=== PATIENT | male | born 1965 | race Caucasian/White ===

== ENCOUNTER 2017-10-08 12:45 | Inpatient (IN) | payer OTHER ==
[2017-10-08] MEDS ORDERED: SODIUM CHLORIDE 0.9% 1,000 ML IV STA (14:07)
[2017-10-08] MEDS ORDERED: ONDANSETRON 4 MG/2 ML VIAL IVP STA (14:07)
[2017-10-08] MEDS ORDERED: FAMOTIDINE 20 MG/2 ML VIAL IV STA (14:08)
--- NOTE | 2017-10-08 14:52 | ED ---
General Adult HPI - General Source: patient, RN notes reviewed Mode of arrival: ambulatory <Ishmael Casiano - Last Filed: 10/08/17 16:07> <Gail Sagastume - Last Filed: 10/08/17 16:50> - General Chief complaint: Nausea/Vomiting/Diarrhea Stated complaint: Throwing up x2wks Time Seen by Provider: 10/08/17 13:53 - History of Present Illness Initial comments: Patient's a 52-year-old male presenting to the emergency room today with a chief complaint of cough congestion over the last 2 weeks. Patient admits that he follow-up family doctor was prescribed azithromycin. States he was also then placed on amoxicillin and steroids. States still having some cough congestion. Also admits to symptoms of nausea and vomiting. Patient states that at times when he is trying to drink water has difficult time keeping it down. He does admit that he was able eat lunch today. Patient denies any specific abdominal pain. Does admit that he's had these symptoms over the past 2 weeks as well with this cough congestion. He denies any other complaints. Patient denies any recent fever, chills, shortness of breath, chest pain, back pain, dysuria or hematuria, constipation or diarrhea, headaches or visual changes, or any other complaints. (Ishmael Casiano) - Related Data Home Medications Medication Instructions Recorded Confirmed Amoxicillin 1,000 mg PO Q12H 10/08/17 10/08/17 Allergies Allergy/AdvReac Type Severity Reaction Status Date / Time No Known Allergies Allergy Verified 10/08/17 16:29 Review of Systems ROS Other: All systems not noted in ROS Statement are negative. <Ishmael Casiano - Last Filed: 10/08/17 16:07> ROS Other: All systems not noted in ROS Statement are negative. <Gail Sagastume - Last Filed: 10/08/17 16:50> ROS Statement: Those systems with pertinent positive or pertinent negative responses have been documented in the HPI. Past Medical History Past Medical History: No Reported History History of Any Multi-Drug Resistant Organisms: None Reported Past Surgical History: No Surgical Hx Reported Smoking Status: Former smoker Past Alcohol Use History: Occasional Past Drug Use History: Marijuana <Ishmael Casiano - Last Filed: 10/08/17 16:07> General Exam <Ishmael Casiano - Last Filed: 10/08/17 16:07> <Gail Sagastume P - Last Filed: 10/08/17 16:50> - General Exam Comments Initial Comments: General: The patient is awake and alert, in no distress, and does not appear acutely ill. Eye: Pupils are equal, round and reactive to light, extra-ocular movements are intact. No nystagmus. There is normal conjunctiva bilaterally. No signs of icterus. Ears, nose, mouth and throat: There are moist mucous membranes and no oral lesions. Neck: The neck is supple, there is no tenderness or JVD. Cardiovascular: There is a regular rate and rhythm. No murmur, rub or gallop is appreciated. Respiratory: Lungs are clear to auscultation, respirations are non-labored, breath sounds are equal. No wheezes, stridor, rales, or rhonchi. Gastrointestinal: Soft, non-distended, non-tender abdomen without masses or organomegaly noted. There is no rebound or guarding present. No CVA tenderness. Musculoskeletal: Normal ROM, no tenderness. Strength 5/5. Sensation intact. Pulses equal bilaterally 2+. Neurological: A&O x 3. CN II-XII intact, There are no obvious motor or sensory deficits. Coordination appears grossly intact. Speech is normal. Skin: Skin is warm and dry and no rashes or lesions are noted. Psychiatric: Cooperative, appropriate mood & affect, normal judgment. (Ishmael Casiano) Vital Signs 10/08/17 10/08/17 13:47 16:04 Temperature 99.3 F 99.0 F Pulse Rate 107 H 91 Respiratory 18 18 Rate Blood Pressure 102/68 114/64 O2 Sat by Pulse 94 L 93 L Oximetry Medical Decision Making - Lab Data Result diagrams: 10/08/17 15:00 10/08/17 15:00 <Ishmael Casiano - Last Filed: 10/08/17 16:07> - Lab Data Result diagrams: 10/08/17 15:00 10/08/17 15:00 <Gail Sagastume - Last Filed: 10/08/17 16:50> - Medical Decision Making Patient's labs been reviewed and are positive for old a white count of 13,000. Patient resting comfortably at bedside no fever. Was mildly tachycardic at triage. Patient's chest x-ray reviewed and does show a left upper lobe pneumonia. Patient was on antibiotics of visit myosin followed by amoxicillin for this infection. Patient will be admitted for IV antibiotics. No Concern for sepsis. (Ishmael Casiano) I evaluated the patient, noted to be normotensive, normocardic, SpO2 96% on RA at time of evaluation. Patient has history of cigarette smoking, worsening cough x10 days, been on Azithromycin and Amoxicillin. CXR today reveals left sided pneumonia. Patient with mild leukocytosis, no uremia or confusion. Considering he has failed outpatient therapy with 2 antibiotics I do feel he warrants in patient admission for community acquired pneumonia. Patient care was discussed with Dr. Vaughan who accepts admission. (Gail Sagastume) - Lab Data Lab Results 10/08/17 10/08/17 10/08/17 Range/Units 15:00 15:00 15:50 WBC 13.3 H (3.8-10.6) k/uL RBC 4.71 (4.30-5.90) m/uL Hgb 13.4 (13.0-17.5) gm/dL Hct 40.8 (39.0-53.0) % MCV 86.5 (80.0-100.0) fL MCH 28.5 (25.0-35.0) pg MCHC 32.9 (31.0-37.0) g/dL RDW 13.6 (11.5-15.5) % Plt Count 491 H (150-450) k/uL Neutrophils % 81 % Lymphocytes % 9 % Monocytes % 6 % Eosinophils % 2 % Basophils % 1 % Neutrophils # 10.7 H (1.3-7.7) k/uL Lymphocytes # 1.2 (1.0-4.8) k/uL Monocytes # 0.8 (0-1.0) k/uL Eosinophils # 0.2 (0-0.7) k/uL Basophils # 0.1 (0-0.2) k/uL Sodium 136 L (137-145) mmol/L Potassium 3.6 (3.5-5.1) mmol/L Chloride 99 (98-107) mmol/L Carbon Dioxide 27 (22-30) mmol/L Anion Gap 10 mmol/L BUN 18 (9-20) mg/dL Creatinine 0.71 (0.66-1.25) mg/dL Est GFR (CKD-EPI)AfAm >90 (>60 ml/min/1.73 sqM) Est GFR (CKD-EPI)NonAf >90 (>60 ml/min/1.73 sqM) Glucose 105 H (74-99) mg/dL Calcium 8.2 L (8.4-10.2) mg/dL Total Bilirubin 0.4 (0.2-1.3) mg/dL AST 27 (17-59) U/L ALT 39 (21-72) U/L Alkaline Phosphatase 101 (38-126) U/L Total Protein 5.8 L (6.3-8.2) g/dL Albumin 3.0 L (3.5-5.0) g/dL Amylase 34 (30-110) U/L Lipase 41 (23-300) U/L Urine Color Yellow Urine Appearance Clear (Clear) Urine pH 5.5 (5.0-8.0) Ur Specific [place] 1.018 (1.001-1.035) Urine Protein Trace H (Negative) Urine Glucose (UA) Negative (Negative) Urine Ketones Negative (Negative) Urine Blood Moderate H (Negative) Urine Nitrite Negative (Negative) Urine Bilirubin Negative (Negative) Urine Urobilinogen <2.0 (<2.0) mg/dL Ur Leukocyte Esterase Negative (Negative) Urine RBC 4 (0-5) /hpf Urine WBC 2 (0-5) /hpf Amorphous Sediment Occasional H (None) /hpf Urine Mucus Occasional H (None) /hpf Disposition Is patient prescribed a controlled substance at d/c from ED?: No Time of Disposition: 16:09 <Ishmael Casiano - Last Filed: 10/08/17 16:07> <Gail Sagastume - Last Filed: 10/08/17 16:50> Clinical Impression: Community acquired pneumonia, Failure of outpatient treatment Disposition: ADMITTED IP TO THIS HOSP Condition: Good Referrals: Leta Smith MD [Primary Care Provider] - 1-2 days
[2017-10-08 15:24] LABS: Basophils # (A) 0.1 k/uL (0-0.2); Basophils % (A) 1 %; Eosinophils # (A) 0.2 k/uL (0-0.7); Eosinophils % (A) 2 %; HCT 40.8 % (39.0-53.0); HGB 13.4 gm/dL (13.0-17.5); Lymphocytes # (A) 1.2 k/uL (1.0-4.8); Lymphocytes % (A) 9 %; MCH 28.5 pg (25.0-35.0); MCHC 32.9 g/dL (31.0-37.0); MCV 86.5 fL (80.0-100.0); Mean Platelet Volume 6.6; Monocytes # (A) 0.8 k/uL (0-1.0); Monocytes % (A) 6 %; Neutrophils # (A) 10.7 k/uL (1.3-7.7); Neutrophils % (A) 81 %; Platelet Count 491 k/uL (150-450); RBC 4.71 m/uL (4.30-5.90); RDW 13.6 % (11.5-15.5); WBC 13.3 k/uL (3.8-10.6)
[2017-10-08 15:34] LABS: ALT 39 U/L (21-72); AST 27 U/L (17-59); Alkaline Phosphatase 101 U/L (38-126); Amylase 34 U/L (30-110); Anion Gap 10 mmol/L; Blood Urea Nitrogen 18 mg/dL (9-20); Calcium 8.2 mg/dL (8.4-10.2); Carbon Dioxide 27 mmol/L (22-30); Chloride 99 mmol/L (98-107); Glucose 105 mg/dL (74-99); Lipase 41 U/L (23-300); Potassium 3.6 mmol/L (3.5-5.1); Sodium 136 mmol/L (137-145); Total Bilirubin 0.4 mg/dL (0.2-1.3); Total Protein 5.8 g/dL (6.3-8.2)
--- NOTE | 2017-10-08 15:45 | XR ---
EXAMINATION TYPE: XR chest 2V DATE OF EXAM: 10/08/2017 COMPARISON: NONE HISTORY: Cough TECHNIQUE: Frontal and lateral views of the chest are obtained. FINDINGS: Abnormal airspace disease is present in the left upper lobe. Underlying bullous emphysemat ous changes are suspected. There may be a small pleural effusion. No definite pneumothorax. Heart siz e is normal. IMPRESSION: Left upper lobe pneumonia and underlying emphysema. Possible small pleural effusion, fol low-up recommended to assess for interval resolution, to exclude underlying mass.
--- NOTE | 2017-10-08 15:46 | XR ---
Abdomen HISTORY: Pain, weakness Frontal view of the abdomen on 2 images Patient's airspace disease is present in the left lung. There is no evident pneumoperitoneum or bowel obstruction. Probable vascular calcifications within the pelvis. The liver may be enlarged. IMPRESSION: Pneumonia. Possible hepatomegaly, correlate.
[2017-10-08] MEDS ORDERED: PNEUMONIA PROTOCOL UTILIZED 1 EACH MISC PO PRN (16:09)
[2017-10-08] MEDS ORDERED: SODIUM CHLORIDE 0.9% 1,000 ML IV ONE (16:09)
[2017-10-08 16:22] LABS: Amorphous Sediment,Urine Occasional /hpf; Appearance,Urine Clear (Clear); Bilirubin,Urine Negative (Negative); Blood,Urine Moderate (Negative); Color,Urine Yellow; Glucose,Urine (UA) Negative (Negative); Ketones,Urine Negative (Negative); Leukocyte Esterase,Urine Negative (Negative); Mucus,Urine Occasional /hpf; Nitrite,Urine Negative (Negative); PH, Urine 5.5 (5.0-8.0); Protein,Urine Trace (Negative); RBC,Urine 4 /hpf (0-5); Specific Gravity,Urine 1.018 (1.001-1.035); Urobilinogen,Urine <2.0 mg/dL (<2.0); WBC,Urine 2 /hpf (0-5)
[2017-10-08] MEDS: LEVOFLOXACIN 750MG-D5W PMX 750 MG in DEXTROSE/WATER 1 150ML.BAG IVPB STA ×2 (16:57→17:13)
[2017-10-08 17:42] VITALS: BMI 26.2
[2017-10-08] MEDS ORDERED: IPRATROPIUM-ALBUTEROL 3 ML NEB INHALATION PRN (21:41)
[2017-10-08] MEDS ORDERED: ALPRAZolam 0.25 MG TAB PO PRN (21:43)
[2017-10-08] MEDS ORDERED: HYDROcodone/APAP 5-325MG 1 EACH TAB PO PRN (21:43)
[2017-10-08] MEDS ORDERED: AZITHROMYCIN 500 MG in SODIUM CHLORIDE 0.9% 250 ML IVPB SCH (21:45)
[2017-10-08] MEDS: ZOLPIDEM 5 MG TAB PO SCH (22:15)
[2017-10-08] MEDS: SODIUM CHLORIDE 0.9% 1,000 ML IV SCH (22:15)
[2017-10-08] MEDS: cefTRIAXone IN SWFI 1,000 MG/10 ML SYRINGE IVP SCH (22:38)
--- NOTE | 2017-10-09 00:12 | HP ---
HISTORY AND PHYSICAL CHIEF COMPLAINTS: Cough and sputum. HISTORY OF PRESENT ILLNESS: This 52-year-old gentleman with a past medical history of no significant medical issues being followed by Dr. Smith in the outpatient setting, was complaining of shortness of breath with cough for the past several days, almost 2 weeks. The patient is taking outpatient antibiotic in the form of amoxicillin and the patient is also taking Zithromax. The patient is also on steroids. Because of lack of improvement, the patient came to [facility] and admitted for further evaluation and treatment. The patient had extensive pneumonia on the left side. There is no history of fever, rigors. No history of headache, loss of consciousness, seizures. PAST MEDICAL HISTORY: History of THC, history of smoking occasional. MEDICATIONS PRIOR TO ADMISSION: Include medications are amoxicillin. ALLERGIES: None. FAMILY HISTORY: No history of heart disease or strokes in the family. SOCIAL HISTORY: Previous history of smoking. Occasional alcohol, THC. REVIEW OF SYSTEMS: ENT: No diminished vision. No diminished hearing. Cardiovascular: No angina or palpitations. Respiratory: As mentioned earlier. GI: No nausea or vomiting. : No dysuria. Nervous system: No numbness or weakness. Allergy/Immunology: No asthma or hayfever. Musculoskeletal: As mentioned earlier. Hematology: No history of anemia. Endocrine: No history of diabetes or hypothyroidism. Constitutional: As mentioned earlier. Dermatology: Negative. Rheumatology: Negative. Psychiatry: As mentioned earlier. PHYSICAL EXAMINATION: GENERAL: The patient is alert, oriented x3. Pulse is 92, blood pressure 104/58, respiration 16, temperature 98 degrees, pulse ox 94% on room air. HEENT: Conjunctivae normal. Oral mucosa moist. NECK: No jugular venous distention. No carotid bruit. No lymph node enlargement. Cardiovascular system: S1, S2, no S3, no S4. RESPIRATORY: Exam of the chest, bilateral scattered rhonchi, left more than the right. No bronchial breath sounds present. ABDOMEN: Soft. Mild diffuse vague discomfort. Vague fullness noted in the upper abdomen. Otherwise no ascites. No bruit. Legs: No edema and no swelling. NERVOUS SYSTEM: Higher functions as mentioned earlier. Moves all 4 limbs. No focal deficits. Skin: No ulcer, rash, bleeding. Joints: No active deforming arthropathy. LABS: WBC 13.2, hemoglobin 13.4 sodium 136. ASSESSMENT: 1. Acute left-sided pneumonia and left upper lobe pneumonia with failure of outpatient treatment possible community acquired. 2. Increased WBC. 3. History of nicotine dependence. 4. Possible COPD, underlying. 5. History of THC. RECOMMENDATIONS AND DISCUSSION: This 52-year-old gentleman who presented with multiple complex medical issues, we will monitor the patient closely. Continue the current medications, symptomatic treatment. We will initiate broad-spectrum IV antibiotics. Obtain cultures. Check for mycoplasma and Legionella. Pulmonary consultation. Cautious IV fluids and DVT prophylaxis. Proton pump inhibitors. Prognosis guarded because of multiple complex medical issues. Discussed with the patient. Order a CT scan of the abdomen pelvis, and chest also for completion purposes for completion sake. Further recommendations to follow. MMODL / IJN: [id number] / ELIS
[2017-10-09] MEDS: PANTOPRAZOLE 40 MG TABLET PO SCH (05:49)
[2017-10-09] MEDS: IPRATROPIUM-ALBUTEROL 3 ML NEB INHALATION SCH ×3 (07:19→20:51)
[2017-10-09] MEDS: NICOTINE 14MG/24HR PATCH TRANSDERM SCH ×2 (07:40→07:43)
[2017-10-09] MEDS: cefTRIAXone IN SWFI 1,000 MG/10 ML SYRINGE IVP SCH (07:40)
[2017-10-09] MEDS: IOPAMIDOL-300 CONTRAST 30 ML VIAL (ORAL USE) PO PRN ×2 (07:40→08:28)
[2017-10-09] MEDS: HEPARIN SODIUM,PORCINE 5,000 UNIT/ML 1 ML VIAL SQ SCH ×3 (07:40→22:49)
[2017-10-09 08:24] LABS: Basophils # (A) 0.1 k/uL (0-0.2); Basophils % (A) 1 %; Eosinophils # (A) 0.1 k/uL (0-0.7); Eosinophils % (A) 1 %; HCT 40.4 % (39.0-53.0); HGB 13.1 gm/dL (13.0-17.5); Lymphocytes # (A) 1.2 k/uL (1.0-4.8); Lymphocytes % (A) 8 %; MCH 28.3 pg (25.0-35.0); MCHC 32.6 g/dL (31.0-37.0); Mean Platelet Volume 6.4; Monocytes # (A) 0.8 k/uL (0-1.0); Monocytes % (A) 5 %; Neutrophils # (A) 12.4 k/uL (1.3-7.7); Neutrophils % (A) 83 %; Platelet Count 538 k/uL (150-450); RBC 4.64 m/uL (4.30-5.90); RDW 13.4 % (11.5-15.5); WBC 14.9 k/uL (3.8-10.6)
[2017-10-09] MEDS: AZITHROMYCIN 500 MG in DEXTROSE 5% IN WATER 250 ML IVPB SCH ×2 (08:28)
[2017-10-09 08:32] LABS: Anion Gap 8 mmol/L; Blood Urea Nitrogen 13 mg/dL (9-20); Carbon Dioxide 29 mmol/L (22-30); Chloride 99 mmol/L (98-107); Glucose 105 mg/dL (74-99); Potassium 3.7 mmol/L (3.5-5.1); Sodium 136 mmol/L (137-145)
--- NOTE | 2017-10-09 10:11 | CT ---
EXAMINATION TYPE: CT ChestAbdPelvis wo con DATE OF EXAM: 10/09/2017 COMPARISON: Chest radiograph dated 10/08/2017 HISTORY: Pneumonia CT DLP: 769.1 mGycm. Automated Exposure Control for Dose Reduction was Utilized. TECHNIQUE: CT scan of the thorax, abdomen and pelvis is performed without IV contrast. Oral contrast was adminis tered per protocol. FINDINGS: Lack of intravenous contrast limits evaluation of the solid viscera. LUNGS: Superimposed upon extensive bullous emphysematous changes of the lungs there is a reticular le ft upper lobe low-density opacity representing underlying pneumonia with extent into the superior seg ment left lower lobe. Within the superior segment of the left lower lobe on series 3 image 39 there i s a fluid attenuated approximately 5.3 x 4.7 cm cavitary lesion with an air-fluid level. Peripheral t o this there is a small left pleural effusion. MEDIASTINUM: There are no greater than 1 cm hilar or mediastinal lymph nodes. Few prominent mediastin al lymph nodes measuring up to 9 mm are seen within the left perihilar region and within the subcarin al region measuring approximately 1.0 cm. No pericardial effusion is seen. Contrast is seen throug hout the entirety of the esophagus that may relate to incomplete propulsion or gastroesophageal reflu x. LIVER/GB: There is diffuse decreased attenuation of the entirety of the hepatic parenchyma approachin g criteria for hepatic steatosis. This limits evaluation of the hepatic parenchyma for underlying mas ses as does the lack of intravenous contrast. No cholelithiasis. Gallbladder is partially contracted. PANCREAS: Unenhanced pancreatic parenchyma is unremarkable without ductal dilatation or peripancreati c fat stranding. SPLEEN: No splenomegaly. ADRENALS: No nodularity or thickening. KIDNEYS: No hydronephrosis or nephrolithiasis. Urinary bladder is incompletely distended and therefor e incompletely evaluated. BOWEL: Very mild thickening of the terminal ileum likely relates to incomplete distention. No evidenc e of large or small bowel dilatation. Appendix is contrast-filled and within normal limits. Moderate amount retained colonic stool is seen, somewhat limiting evaluation.. GENITAL ORGANS: Prostate gland is diffusely heterogenous containing numerous dystrophic calcification s. LYMPH NODES: No greater than 1cm abdominal or pelvic lymph nodes are appreciated. OSSEOUS STRUCTURES: There is abnormal bone marrow throughout the osseous structures most conspicuous within the sacrum with heterogeneity of the sacrum and near fusion of the inferior margins of the sac roiliac joints. Solitary lytic lesion that does not appear typical for a hemangioma seen of L4 measur ing 1.5 cm. There appears to be expansion of the bone marrow within the sternum such as on series 7 i mage 65. Punctate sclerotic foci within the femoral heads most commonly related to bone islands. Mild multilevel degenerative changes of the spine are present. OTHER:. Small periumbilical hernia is fat filled. Abdominal aorta is of normal course and caliber wit h minimal calcific atheromatous changes. IMPRESSION: 1. Left upper lobe pneumonia with extent into the superior segment of the left lower lobe as well as cavitary superior segment left upper lobe lesion that may represent pulmonary abscess in the setting of pneumonia although the possibility of underlying cavitary mass is not yet excluded. Small peripneu omar effusion is seen and findings are superimposed upon extensive bullous emphysematous change. 2. Diffuse abnormal bone marrow with solitary lytic lesion of L4 and expansion of the bone marrow wit hin the sternum. CBC is recommended to evaluate for underlying lymphoma/leukemia/other myeloprolifera tive disorders as well as consideration for multiple myeloma or less likely diffuse osseous metastasi s. 3. Contrast throughout the entirety of the esophagus that could relate to abnormal esophageal transit /motility or severe gastroesophageal reflux. A Evans level critical message alert has been initiated for Mira Olguin via the [employer] System on 10/09/2017 10:08 AM. This message alert has been sent to Mira Olguin via the preferences provided by the clinician for the receipt of Radiology Critical Findings. Message ID [id number].
--- NOTE | 2017-10-09 14:36 | P.CNPUL ---
History of Present Illness Consult date: 10/09/17 Reason for consult: pneumonia Chief complaint: Cough and congestion History of present illness: This is a 52-year-old white male with history of COPD, primarily a patient of Dr. de la cruz. Patient was seen recently by his primary care physician for symptoms of cough and congestion over the last 2 weeks. He was diagnosed as having upper respiratory tract infection, and he was prescribed Zithromax. Did not feel much better, seen a few days later and he was placed on amoxicillin and steroids. Continued to have more symptoms of cough and congestion, and he developed some intermittent episodes of nausea and vomiting. Family advised him to come to the ER, and a chest x-ray showed significant consolidation in the left upper lobe. Computed tomography scan of the chest abdomen and pelvis showed a cavitary lesion in the superior segment of the left lower lobe and air fluid level. There was also some abnormal bone marrow throughout the osseous structures were and the radiologist raised the possibility of expansion of bone marrow within the sternum and there is evidence of punctate sclerotic foci within the femoral heads and there was also solitary lytic lesion of L4 consistent with possible underlying myeloproliferative disorder or multiple myeloma. Surprisingly, in spite of the significant abnormality noted on the CT of the chest and chest x-ray, patient does not seem to be quite ill based on clinical examination. He does have intermittent fever and chills, denies any significant productive cough, he does have some dry hacking cough. Presently no nausea no vomiting no abdominal pain no melena no hematemesis is no dysuria and no frequency no urgency. Review of Systems 14 point review of systems were obtained, please refer to pertinent positives in HPI, otherwise remaining systems are negative. Past Medical History Past Medical History: No Reported History History of Any Multi-Drug Resistant Organisms: None Reported Past Surgical History: Tonsillectomy Smoking Status: Former smoker Past Alcohol Use History: Occasional Past Drug Use History: Marijuana - Past Family History Mother Additional Family Medical History / Comment(s): none Father Additional Family Medical History / Comment(s): at 73 years due to complications from a goiter removal Medications and Allergies Home Medications Medication Instructions Recorded Confirmed Type Amoxicillin 1,000 mg PO Q12H 10/08/17 10/08/17 History Allergies Allergy/AdvReac Type Severity Reaction Status Date / Time No Known Allergies Allergy Verified 10/08/17 16:29 Physical Exam Vitals: Vital Signs Temp Pulse Pulse Resp BP BP Pulse Ox 10/09/17 07:31 97 10/09/17 07:19 100 10/09/17 07:00 99.9 F H 111 H 18 113/56 92 L 10/09/17 00:00 92 18 10/08/17 21:42 99.0 F 72 18 117/62 93 L 10/08/17 18:01 18 10/08/17 17:36 98 F 92 16 104/58 10/08/17 16:49 99.1 F 89 20 110/65 96 10/08/17 16:09 92 L 10/08/17 16:04 99.0 F 91 18 114/64 93 L Intake and Output 10/08/17 10/09/17 10/09/17 22:59 06:59 14:59 Intake Total 1440 1390 Balance 1440 1390 Intake: Amount of Fluid Infused ( 1200 ml) Intake, IV Titration 1150 Amount Sodium Chloride 0.9% 1, 600 000 ml @ 100 mls/hr IV . Q10H ONE Rx#:[id number] Sodium Chloride 0.9% 1, 550 000 ml @ 75 mls/hr IV . [id number] ALTHEA Rx#:[id number] Oral 240 240 Other: Voiding Method Toilet Toilet # Voids 2 2 Weight 90.174 kg Physical Exam: Revealed a 52-year-old white male, does not appear acutely ill, in no distress. Head: Atraumatic, normocephalic. HEENT:[Neck is supple.] [No neck masses.] [No thyromegaly.] [No JVD.] Chest: [Clear throughout, no crackles, no rhonchi, no wheezes.] Cardiac Exam: [Normal S1 and S2, no S3 gallop, no murmur.] Abdomen: [Soft, nontender, no megaly, no rebound, no guarding, normal bowel sounds.] Extremities: [No clubbing, no edema, no cyanosis.] Neurological Exam: [No focal neurologic deficit.] Psychiatric: Normal mood affect and mental status examination. Lymphatics: No lymphadenopathy. Skin: No rashes. Results - Laboratory Findings CBC and BMP: 10/09/17 08:00 10/09/17 08:00 Abnormal lab findings: Abnormal Labs 10/08/17 10/08/17 10/08/17 15:00 15:00 15:50 WBC 13.3 H Plt Count 491 H Neutrophils # 10.7 H Sodium 136 L Glucose 105 H Calcium 8.2 L Total Protein 5.8 L Albumin 3.0 L Urine Protein Trace H Urine Blood Moderate H Amorphous Sediment Occasional H Urine Mucus Occasional H 10/09/17 10/09/17 08:00 08:00 WBC 14.9 H Plt Count 538 H Neutrophils # 12.4 H Sodium 136 L Glucose 105 H Calcium 8.0 L Total Protein Albumin Urine Protein Urine Blood Amorphous Sediment Urine Mucus - Diagnostic Findings Chest x-ray: image reviewed CT scan - chest: image reviewed (As noted in HPI.) Assessment and Plan Assessment: Impression: 1 extensive left sided pneumonia involving the left upper lobe and superior segment of the left lower lobe, most likely secondary to community-acquired pneumonia. 2 possible underlying lymphoproliferative disorder, or possible underlying multiple myeloma. Hence we will request serum protein electrophoresis. 3 tobacco dependence syndrome 4 significant emphysema/COPD based on the CT of the chest findings. Recommendation: Continue present course of antibiotics, bronchodilators, we'll proceed with bronchoscopy and lavage of the left upper lobe and superior segment of the left lower lobe. This will be done tomorrow, discussed with the patient his CT of the chest and his chest x-ray, reviewed all of these with the patient, and discussed with him the option of bronchoscopy and possibly tissue diagnosis. Patient is agreeable, and we'll proceed with bronchoscopy tomorrow. Possible biopsy, but the patient will definitely have lavage of the left upper lobe and the superior segment of the left lower lobe. Time with Patient: Greater than 30
[2017-10-09] MEDS ORDERED: ONDANSETRON 4 MG/2 ML VIAL IVP PRN (14:53)
[2017-10-09] MEDS: SODIUM CHLORIDE 0.9% 1,000 ML IV SCH (15:31)
[2017-10-09] MEDS ORDERED: LIDOCAINE 1% 20 ML VIAL (10MG/ML) FOR IV START INTRADERMA PRN (15:36)
[2017-10-09] MEDS ORDERED: MIDAZOLAM 2 MG/2 ML VIAL IV PRN (15:36)
[2017-10-09] MEDS: LACTATED RINGERS 1,000 ML IV SCH (15:40)
[2017-10-09] MEDS ORDERED: LEVOFLOXACIN 750 MG TAB PO SCH (16:00)
[2017-10-09] MEDS: SYMBICORT 160-4.5 MCG INHALER INHALATION SCH (20:51)
[2017-10-09] MEDS ORDERED: TEMAZEPAM 30 MG CAP PO PRN (21:10)
--- NOTE | 2017-10-09 22:16 | PN ---
PROGRESS NOTE DATE OF SERVICE: 10/09/2017. INTERVAL HISTORY: This 52-year-old gentleman who was admitted with extensive pneumonia on the left side is being closely monitored. The patient also had cavitary lesion. The patient also had suspected lesions also metastatic malignancy also suspected. Dr. Reynolds is planning bronchoscopy tomorrow. No chest pain. No palpitations. No fever. PHYSICAL EXAM: Alert and oriented times three. Pulse 91, blood pressure 113/77, respirations 16, temperature 98.4, pulse ox 98% on room air. HEENT is conjunctivae normal. Oral mucosa moist. Neck is no jugular venous distention. No carotid bruit. No lymph node enlargement. Cardiovascular system: S1, S2 muffled. Respiratory: Breath sounds diminished in the bases. A few scattered rhonchi and crackles. ABDOMEN: Soft, nontender. No mass palpable. Legs: No edema and no swelling. Central nervous system: No focal deficits. LABS: At this time WBC 14.9, sodium 136, influenza negative. ASSESSMENT: 1. Acute left-sided extensive pneumonia left upper lobe and probably possible upper part of the lower lobe as well with failure for outpatient treatment, possibly community acquired. 2. Possible cavitary lesion in the left upper lobe. 3. Possible osseous lesions. 4. Increased WBC. 5. History of nicotine dependence. 6. Underlying chronic obstructive pulmonary disease. 7. History of THC. RECOMMENDATIONS AND DISCUSSION: Recommend to continue current management. Continue symptomatic treatment. Continue with bronchial bronchodilators. Continue with broad-spectrum IV antibiotics. Follow cultures. Bronchoscopy by Dr. Reynolds. Hematology/Oncology evaluation by Dr. Nieto. Prognosis guarded because of multiple complex medical issues, we will treat the patient for community-acquired pneumonia currently. See orders. Discussed with the patient who understands and agrees. See orders for details. MMODL / IJN: [id number] / MTDD
[2017-10-10] MEDS: SODIUM CHLORIDE 0.9% 1,000 ML IV SCH ×2 (04:53→14:47)
[2017-10-10 08:57] LABS: Basophils # (A) 0.1 k/uL (0-0.2); Basophils % (A) 1 %; Eosinophils # (A) 0.2 k/uL (0-0.7); Eosinophils % (A) 1 %; HGB 12.6 gm/dL (13.0-17.5); Lymphocytes # (A) 1.3 k/uL (1.0-4.8); Lymphocytes % (A) 10 %; MCH 28.2 pg (25.0-35.0); MCHC 32.3 g/dL (31.0-37.0); MCV 87.3 fL (80.0-100.0); Mean Platelet Volume 6.7; Monocytes # (A) 0.7 k/uL (0-1.0); Monocytes % (A) 6 %; Neutrophils # (A) 10.4 k/uL (1.3-7.7); Neutrophils % (A) 81 %; Platelet Count 574 k/uL (150-450); RBC 4.47 m/uL (4.30-5.90); RDW 13.4 % (11.5-15.5); WBC 12.9 k/uL (3.8-10.6)
[2017-10-10] MEDS: IPRATROPIUM-ALBUTEROL 3 ML NEB INHALATION SCH ×3 (08:59→19:40)
[2017-10-10] MEDS: SYMBICORT 160-4.5 MCG INHALER INHALATION SCH ×2 (08:59→19:40)
[2017-10-10 09:18] LABS: Anion Gap 8 mmol/L; Blood Urea Nitrogen 13 mg/dL (9-20); Carbon Dioxide 28 mmol/L (22-30); Chloride 102 mmol/L (98-107); Glucose 94 mg/dL (74-99); Potassium 4.1 mmol/L (3.5-5.1); Sodium 138 mmol/L (137-145)
[2017-10-10] MEDS ORDERED: VANCOMYCIN IV PER PHARMACY 1 EACH MISC MISCELLANE PRN (09:21)
[2017-10-10] MEDS ORDERED: VANCOMYCIN 1,500 MG in SODIUM CHLORIDE 0.9% 250 ML IVPB STA (09:21)
[2017-10-10] MEDS: PANTOPRAZOLE 40 MG TABLET PO SCH (10:00)
[2017-10-10] MEDS: AZITHROMYCIN 500 MG in DEXTROSE 5% IN WATER 250 ML IVPB SCH ×2 (10:03)
[2017-10-10] MEDS: HEPARIN SODIUM,PORCINE 5,000 UNIT/ML 1 ML VIAL SQ SCH ×2 (10:04→20:40)
[2017-10-10] MEDS: NICOTINE 14MG/24HR PATCH TRANSDERM SCH (10:04)
[2017-10-10] MEDS: cefTRIAXone IN SWFI 1,000 MG/10 ML SYRINGE IVP SCH (10:06)
[2017-10-10] MEDS: ZOLPIDEM 5 MG TAB PO SCH (11:09)
--- NOTE | 2017-10-10 12:03 | P.PN ---
Subjective Progress Note Date: 10/10/17 Principal diagnosis: Extensive left sided pneumonia involving the left upper lobe and superior segment of the left lower lobe, most likely community acquired This is a 52-year-old white male with history of COPD, primarily a patient of Dr. de la cruz. Patient was seen recently by his primary care physician for symptoms of cough and congestion over the last 2 weeks. He was diagnosed as having upper respiratory tract infection, and he was prescribed Zithromax. Did not feel much better, seen a few days later and he was placed on amoxicillin and steroids. Continued to have more symptoms of cough and congestion, and he developed some intermittent episodes of nausea and vomiting. Family advised him to come to the ER, and a chest x-ray showed significant consolidation in the left upper lobe. Computed tomography scan of the chest abdomen and pelvis showed a cavitary lesion in the superior segment of the left lower lobe and air fluid level. There was also some abnormal bone marrow throughout the osseous structures were and the radiologist raised the possibility of expansion of bone marrow within the sternum and there is evidence of punctate sclerotic foci within the femoral heads and there was also solitary lytic lesion of L4 consistent with possible underlying myeloproliferative disorder or multiple myeloma. Surprisingly, in spite of the significant abnormality noted on the CT of the chest and chest x-ray, patient does not seem to be quite ill based on clinical examination. He does have intermittent fever and chills, denies any significant productive cough, he does have some dry hacking cough. Presently no nausea no vomiting no abdominal pain no melena no hematemesis is no dysuria and no frequency no urgency. On 10/10/2017 patient seen in follow-up on medical surgical floor. His any acute distress, denies any fever or chills, denies any dyspnea, denies any chest congestion or sputum production. Afebrile, hemodynamically stable, room air pulse ox is 93%. No chest wall tenderness, no phlegm production no hemoptysis. Patient states his biggest complaint today is been able to eat or drink, because patient is scheduled for bronchoscopy with BAL by Dr. Mix today. He is really hoping to be able to go home after the procedure. Currently being treated with combination of azithromycin and Rocephin, and blood , urine and sputum cultures are negative thus far. Objective - Vital Signs Vital signs: Vital Signs Temp 98.6 F 10/10/17 06:12 Pulse 106 H 07/17/18 06:12 Resp 18 10/10/17 06:12 BP 127/66 10/10/17 06:12 Pulse Ox 93 L 10/10/17 06:12 Intake & Output 10/09/17 10/10/17 10/10/17 18:59 06:59 18:59 Intake Total 850 600 Balance 850 600 Intake: Intake, IV Titration 850 600 Amount Azithromycin 500 mg In 250 Sodium Chloride 0.9% 250 ml @ 125 mls/hr IVPB DAILY [facility] Rx#:[id number] Sodium Chloride 0.9% 1, 600 600 000 ml @ 75 mls/hr IV . [id number] [facility] Rx#:[id number] Other: Voiding Method Toilet # Voids 3 1 - Exam Physical Exam: Revealed a 52-year-old white male, does not appear acutely ill, in no distress. Head: Atraumatic, normocephalic. HEENT:[Neck is supple.] [No neck masses.] [No thyromegaly.] [No JVD.] Chest: [Diminished lung sounds over left posterior lower lobe, with diminished air entry, clear on the right Cardiac Exam: [Normal S1 and S2, no S3 gallop, no murmur.] Abdomen: [Soft, nontender, no megaly, no rebound, no guarding, normal bowel sounds.] Extremities: [No clubbing, no edema, no cyanosis.] Neurological Exam: [No focal neurologic deficit.] Psychiatric: Normal mood affect and mental status examination. Lymphatics: No lymphadenopathy. Skin: No rashes. - Labs CBC & Chem 7: 10/10/17 07:40 10/10/17 07:40 Labs: Abnormal Lab Results - Last 24 Hours (Table) 10/10/17 10/10/17 Range/Units 07:40 07:40 WBC 12.9 H (3.8-10.6) k/uL Hgb 12.6 L (13.0-17.5) gm/dL Plt Count 574 H (150-450) k/uL Neutrophils # 10.4 H (1.3-7.7) k/uL Calcium 8.0 L (8.4-10.2) mg/dL Microbiology - Last 24 Hours (Table) 10/08/17 16:20 Blood Culture Gram Stain - Preliminary Blood 10/08/17 16:20 Blood Culture - Final Blood 10/08/17 17:30 Blood Culture - Preliminary Blood No Growth after 24 hours 10/09/17 08:30 Urine Culture - Preliminary Urine,Voided 10/09/17 11:00 Gram Stain - Final Sputum Sputum Culture - Final Assessment and Plan Plan: Assessment: 1 extensive left sided pneumonia involving the left upper lobe and superior segment of the left lower lobe, most likely secondary to community-acquired pneumonia, with failed outpatient treatment 2 possible underlying lymphoproliferative disorder, or possible underlying multiple myeloma. Hence we will request serum protein electrophoresis. 3 tobacco dependence syndrome 4 significant emphysema/COPD based on the CT of the chest findings. Recommendation: We'll proceed with bronchoscopy with BAL this afternoon, otherwise continue current antibiotic coverage, continue nebulized bronchodilators, Symbicort. Patient states he is actually feeling good, denies any dyspnea, denies any chest congestion, denies any chest wall tenderness, he is really hoping to be able to go home may be today, however it is probably not likely to happen and considering the extent of his left lung pneumonia, with possible cavitation, and failed outpatient treatment I performed a history & physical examination of the patient and discussed their management with my nurse practitioner, Reba Bond. I reviewed the nurse practitioner's note and agree with the documented findings and plan of care. Lung sounds are diminished breath sounds over left lower lobe. The findings and the impression was discussed with the patient. I attest to the documentation by the nurse practitioner. Time with Patient: Less than 30
[2017-10-10] MEDS ORDERED: GLYCOPYRROLATE 0.2 MG/ML 2 ML VIAL ONE ×2 (13:40)
[2017-10-10] MEDS ORDERED: fentaNYL (PF) 50 MCG/ML 2 ML AMP ONE ×2 (13:40)
[2017-10-10] MEDS ORDERED: KETAMINE 10 MG/ML 20 ML VIAL ONE ×2 (13:40)
[2017-10-10] MEDS ORDERED: LIDOCAINE 1% INJ 10MG/ML (20 ML MDV) ONE ×2 (13:40)
[2017-10-10] MEDS ORDERED: MIDAZOLAM 2 MG/2 ML VIAL ONE ×2 (13:40)
[2017-10-10] MEDS ORDERED: PROPOFOL 10 MG/ML 20 ML VIAL IV ONE ×2 (13:40)
[2017-10-10] MEDS ORDERED: IV FLUID CONTINUATION 400 ML IV ONE (13:41)
[2017-10-10] MEDS ORDERED: ACETAMINOPHEN TAB 325 MG TAB PO PRN (15:42)
[2017-10-10] MEDS: LACTATED RINGERS 1,000 ML IV SCH (15:49)
[2017-10-10] MEDS: VANCOMYCIN 1,500 MG in SODIUM CHLORIDE 0.9% 250 ML IVPB SCH (15:53)
--- NOTE | 2017-10-10 16:00 | NM ---
EXAMINATION TYPE: NM bone scan whole body DATE OF EXAM: 10/10/2017 COMPARISON: CT chest abdomen pelvis 10/09/2017 HISTORY: Abnormal bone findings and prior diagnostic exam, CT scan Delayed whole-body scanning was performed following the injection of 20 mCi Tc 99m MDP. Images acqui red 5 hours post injection. FINDINGS: There is no abnormal increased uptake to suggest metastatic disease. Soft tissue uptake is normal. Th ere is a spinal curvature. Ankylosis of the sacroiliac joints seen on CT scan does not show abnormal uptake on bone scan. Uptake within the feet, hands, shoulders is likely degenerative. Specific the L4 lytic lesion seen on CT shows no corresponding hypermetabolic uptake. Sternomanubrial joints shows ankylosis. IMPRESSION: No hypermetabolic uptake to suggest metastatic disease. Consider multiple myeloma, myelofibrosis, mye loproliferative disorders
--- NOTE | 2017-10-10 16:03 | XR ---
EXAMINATION TYPE: XR chest 2V DATE OF EXAM: 10/10/2017 COMPARISON: Prior chest 10/08/2017 HISTORY: Left upper lobe pneumonia TECHNIQUE: Frontal and lateral views of the chest are obtained. FINDINGS: Findings are not significantly changed. IMPRESSION: Stable exam, follow-up to resolution. Findings compatible with left upper lobe pneumonia .
--- NOTE | 2017-10-10 16:17 | PN ---
PROGRESS NOTE DATE OF SERVICE: 10/10/2017 This 52-year-old gentleman admitted with acute extensive pneumonia on the left side as well as cavitary lesion, had a bronchoscopy today. The final reports are pending at this time. The patient also had a bone scan also. No chest pain. No palpitations. No fever. PHYSICAL EXAM: Alert and oriented x2. Pulse 98, blood pressure 140/60, respiration 14, temperature 97.7, pulse ox 99% on room air. HEENT: Conjunctivae normal. Oral mucosa moist. Neck is no jugular venous distention. No carotid bruit. No lymph node enlargement. CARDIOVASCULAR: S1, S2 RESPIRATORY: Breath sounds diminished in the bases. No rhonchi, no crackles. ABDOMEN: Soft, nontender. No mass palpable. LEGS: No edema. NERVOUS SYSTEM: No focal deficits. LAB STUDIES: WBC of 12.9, hemoglobin 12.6, sodium 130, potassium 4.4, otherwise influenza negative. Cultures are still negative. ASSESSMENT: 1. Acute left-sided extensive pneumonia left upper lobe possible cavitary lesion as well as involving the superior part of the lower lobe with failure of outpatient treatment, possibly community-acquired pneumonia. 2. Possible osseous lesions, metastatic lesions. 3. Increased WBC. 4. History of nicotine dependence. 5. Underlying chronic obstructive pulmonary disease. 6. History of THC. RECOMMENDATIONS AND DISCUSSION: I recommend continue current management and continue symptomatic treatment. Otherwise, closely follow with Pulmonary. Guarded prognosis because of multiple complex medical issues. Further recommendations to follow. MMODL / IJN: [id number] /
--- NOTE | 2017-10-10 17:08 | PCN ---
PROCEDURE NOTE PROCEDURE PERFORMED: Bronchoscopy and bronchoalveolar lavage of the left upper lobe, lingula, and superior segment of the left lower lobe. PREOPERATIVE DIAGNOSIS: Pneumonia/consolidation of the left upper lobe and superior segment of the left lower lobe. POSTOPERATIVE DIAGNOSIS: Pneumonia/consolidation of the left upper lobe and superior segment of the left lower lobe. ANESTHESIA USED: IV conscious sedation, please refer to [employer] documentation. PROCEDURE: The patient was prepared according the bronchoscopy protocol. O2 was applied via Ventimask. This patient had continuous monitoring of the O2 saturation via pulse oximetry. Blood pressure was intermittently monitored, and O2 saturation was continuously monitored. Blood pressure was intermittently monitored. Cardiac rhythm was continuously monitored. After adequate IV conscious sedation, the right naris was anesthetized with local lidocaine. Then the bronchoscope was advanced through the right naris down to the area of the vocal cords. The vocal cords were patent and unremarkable. Lidocaine applied over the vocal cords and the bronchoscope was advanced further down to the area of that trachea. Thorough examination was done of the trachea, mary, right upper lobe, right middle lobe, right lower lobe, left upper lobe, lingula, and left lower lobe. Very minimal purulent secretions noted in the left upper lobe area, lavage of the left upper lobe lingula and superior segment of the left lower lobe was done. Procedure was tolerated, no evidence of any immediate complications. The fluid from the lavage was sent for different diagnostic and microbial studies. MMODL / IJN: [id number] /
--- NOTE | 2017-10-10 17:26 | P.CONS ---
History of Present Illness - Reason for Consult Consult date: 10/10/17 lung mass, abnormalities of the bone on imaging Requesting physician: Mira Olguin - Chief Complaint unresolving pneumonia, general malaise - History of Present Illness Mr. Vargas is a very pleasant male patient of PCP Dr. Smith with a benign medical history. Since 27 of September patient has been treated with 2 courses of antibiotics for persistent symptoms of a upper respiratory infection , symptoms including malaise, cough, fatigue, mild shortness of breath on exertion, denied fever, sore throat, nausea, vomiting, diarrhea, bleeding, swelling or new or unusual pain. Review of Systems 14 point review of systems is as stated in HPI Past Medical History Past Medical History: No Reported History History of Any Multi-Drug Resistant Organisms: None Reported Past Surgical History: Tonsillectomy Smoking Status: Former smoker Past Alcohol Use History: Occasional Past Drug Use History: Marijuana - Past Family History Mother Additional Family Medical History / Comment(s): none Father Additional Family Medical History / Comment(s): at 73 years due to complications from a goiter removal Medications and Allergies Home Medications Medication Instructions Recorded Confirmed Type Amoxicillin 1,000 mg PO Q12H 10/08/17 10/08/17 History Allergies Allergy/AdvReac Type Severity Reaction Status Date / Time No Known Allergies Allergy Verified 10/08/17 16:29 Physical Exam Vitals: Vital Signs Temp Pulse Resp BP Pulse Ox 10/10/17 14:53 97.7 F 98 14 146/68 91 L 10/10/17 06:12 98.6 F 106 H 18 127/66 93 L 10/09/17 21:05 98 F 97 20 130/74 95 10/09/17 20:52 95 Intake and Output 10/10/17 10/10/17 10/10/17 06:59 14:59 22:59 Intake Total 600 800 Balance 600 800 Intake: IV 200 Intake, IV Titration 600 600 Amount Sodium Chloride 0.9% 1, 600 600 000 ml @ 75 mls/hr IV . [id number] [facility] Rx#:[id number] Other: Voiding Method Toilet # Voids 1 4 # Bowel Movements 1 - Constitutional General appearance: average body habitus, cooperative, no acute distress - EENT Eyes: anicteric sclerae, EOMI, normal appearance ENT: hearing grossly normal, normal oropharynx - Neck Neck: no lymphadenopathy - Respiratory Respiratory: bilateral: CTA - Cardiovascular Rhythm: regular Heart sounds: normal: S1, S2 Abnormal Heart Sounds: no systolic murmur, no diastolic murmur, no rub, no S3 Gallop, no S4 Gallop, no click, no other leg Peripheral Edema: bilateral: None - Gastrointestinal General gastrointestinal: no absent bowel sounds, no decreased bowel sounds, no distended, no hepatomegaly, no hyperactive bowel sounds, normal bowel sounds, no organomegaly, no rigid, no scaphoid, soft, no splenomegaly, no tenderness, no umbilical hernia, no ventral hernia - Integumentary Integumentary: normal - Neurologic Neurologic: CNII-XII intact - Musculoskeletal Musculoskeletal: strength equal bilaterally - Psychiatric Psychiatric: A&O x's 3, appropriate affect, intact judgment & insight Results CBC & Chem 7: 10/10/17 07:40 10/10/17 07:40 Labs: Abnormal Lab Results - Last 24 Hours (Table) 10/10/17 10/10/17 Range/Units 07:40 07:40 WBC 12.9 H (3.8-10.6) k/uL Hgb 12.6 L (13.0-17.5) gm/dL Plt Count 574 H (150-450) k/uL Neutrophils # 10.4 H (1.3-7.7) k/uL Calcium 8.0 L (8.4-10.2) mg/dL Microbiology - Last 24 Hours (Table) 10/09/17 08:30 Urine Culture - Final Urine,Voided 10/08/17 16:20 Blood Culture Gram Stain - Preliminary Blood 10/08/17 16:20 Blood Culture - Final Blood 10/08/17 17:30 Blood Culture - Preliminary Blood No Growth after 24 hours 10/09/17 11:00 Gram Stain - Final Sputum Sputum Culture - Final CT scan - abdomen: report reviewed CT scan - chest: report reviewed CT scan - pelvis: report reviewed Assessment and Plan (1) Lung mass Current Visit: Yes Status: Acute Priority: High Code(s): R91.8 - OTHER NONSPECIFIC ABNORMAL FINDING OF LUNG FIELD SNOMED Code(s): 675649475 (2) Bone anomaly Current Visit: Yes Status: Acute Priority: High Code(s): M95.9 - ACQUIRED DEFORMITY OF MUSCULOSKELETAL SYSTEM, UNSPECIFIED SNOMED Code(s): 973140053 Plan: Findings suggestive of a malignant process. Patient is having bronchoscopy and biopsy with pulmonary today. Bone scan ordered to evaluate suspicious findings in the lower back and sternal areas. Dr. Nieto briefly discussed concerning findings and that pt is being worked up for possible malignant process. Labs reviewed, mildly elevated WBC-all neutrophils, and moderate thrombocythemia , no acute intervention. Likely a reactive process but, an underlying marrow process cannot be completely ruled out. Further work up will be ordered as results from currently ordered testing is resulted. Doctor attests: I performed a history and physical examination of this patient, discussed with dictator. I agree with dictators note, documented as a scribe.
[2017-10-10 18:22] LABS: Appearance,BF Cloudy; Color,BF Colorless; Nucleated Cells, Body Fluid 1180 /uL; RBC, Body Fluid 80 /uL
[2017-10-10 18:24] LABS: Mononuclear WBC,Body Fluid 4 %; Polynuclear WBC,Body Fluid 96 %; Total Cells Counted,Body Fluid 100
[2017-10-10 21:27] VITALS: RESP 16
[2017-10-11] MEDS: VANCOMYCIN 1,500 MG in SODIUM CHLORIDE 0.9% 250 ML IVPB SCH ×2 (04:25→08:18)
[2017-10-11] MEDS: SODIUM CHLORIDE 0.9% 1,000 ML IV SCH (04:26)
[2017-10-11 06:12] VITALS: BP 132/72; PULSE 107; TEMP 98.8
[2017-10-11 06:46] LABS: Mycoplasma IgM Antibody 0.1 INDEX (<=0.90)
[2017-10-11] MEDS: IPRATROPIUM-ALBUTEROL 3 ML NEB INHALATION SCH ×2 (07:26→11:34)
[2017-10-11] MEDS: SYMBICORT 160-4.5 MCG INHALER INHALATION SCH (07:26)
[2017-10-11] MEDS: PANTOPRAZOLE 40 MG TABLET PO SCH (08:18)
[2017-10-11] MEDS: cefTRIAXone IN SWFI 1,000 MG/10 ML SYRINGE IVP SCH (08:18)
[2017-10-11 08:29] LABS: Basophils # (A) 0.1 k/uL (0-0.2); Basophils % (A) 1 %; Eosinophils # (A) 0.2 k/uL (0-0.7); Eosinophils % (A) 2 %; HCT 39.4 % (39.0-53.0); HGB 12.9 gm/dL (13.0-17.5); Lymphocytes # (A) 1.2 k/uL (1.0-4.8); Lymphocytes % (A) 11 %; MCH 28.7 pg (25.0-35.0); MCHC 32.9 g/dL (31.0-37.0); MCV 87.4 fL (80.0-100.0); Mean Platelet Volume 6.6; Monocytes # (A) 0.6 k/uL (0-1.0); Monocytes % (A) 5 %; Neutrophils % (A) 80 %; Platelet Count 643 k/uL (150-450); RDW 13.8 % (11.5-15.5); WBC 11.3 k/uL (3.8-10.6)
[2017-10-11] MEDS: NICOTINE 14MG/24HR PATCH TRANSDERM SCH (08:49)
[2017-10-11] MEDS: HEPARIN SODIUM,PORCINE 5,000 UNIT/ML 1 ML VIAL SQ SCH (08:49)
[2017-10-11 08:57] LABS: Anion Gap 5 mmol/L; Blood Urea Nitrogen 13 mg/dL (9-20); Calcium 8.3 mg/dL (8.4-10.2); Carbon Dioxide 29 mmol/L (22-30); Chloride 103 mmol/L (98-107); Glucose 95 mg/dL (74-99); Potassium 4.1 mmol/L (3.5-5.1); Sodium 137 mmol/L (137-145)
[2017-10-11] MEDS: AZITHROMYCIN 500 MG in DEXTROSE 5% IN WATER 250 ML IVPB SCH ×2 (10:49)
--- NOTE | 2017-10-11 14:16 | XR ---
EXAMINATION TYPE: XR chest 2V DATE OF EXAM: 10/11/2017 COMPARISON: Prior chest x-ray 10/10/[address] 10/09/2017, chest x-ray 10/08/2017. HISTORY: Cough and pneumonia TECHNIQUE: Frontal and lateral views of the chest are obtained. FINDINGS: Abnormal airspace disease, pleural thickening in the left upper lobe is again noted, there may be some slight improvement in aeration. There is underlying emphysema. Air-fluid level seen on p atient's CT scan is not identified on plain film. Persistent blunting of the left gastric angle. No p neumothorax. Heart is stable. IMPRESSION: Suspect some improvement in airspace disease.
--- NOTE | 2017-10-11 14:48 | P.PN ---
Subjective Progress Note Date: 10/11/17 Principal diagnosis: Extensive left sided pneumonia involving the left upper lobe and superior segment of the left lower lobe, most likely community acquired This is a 52-year-old white male with history of COPD, primarily a patient of Dr. de la cruz. Patient was seen recently by his primary care physician for symptoms of cough and congestion over the last 2 weeks. He was diagnosed as having upper respiratory tract infection, and he was prescribed Zithromax. Did not feel much better, seen a few days later and he was placed on amoxicillin and steroids. Continued to have more symptoms of cough and congestion, and he developed some intermittent episodes of nausea and vomiting. Family advised him to come to the ER, and a chest x-ray showed significant consolidation in the left upper lobe. Computed tomography scan of the chest abdomen and pelvis showed a cavitary lesion in the superior segment of the left lower lobe and air fluid level. There was also some abnormal bone marrow throughout the osseous structures were and the radiologist raised the possibility of expansion of bone marrow within the sternum and there is evidence of punctate sclerotic foci within the femoral heads and there was also solitary lytic lesion of L4 consistent with possible underlying myeloproliferative disorder or multiple myeloma. Surprisingly, in spite of the significant abnormality noted on the CT of the chest and chest x-ray, patient does not seem to be quite ill based on clinical examination. He does have intermittent fever and chills, denies any significant productive cough, he does have some dry hacking cough. Presently no nausea no vomiting no abdominal pain no melena no hematemesis is no dysuria and no frequency no urgency. On 10/10/2017 patient seen in follow-up on medical surgical floor. His any acute distress, denies any fever or chills, denies any dyspnea, denies any chest congestion or sputum production. Afebrile, hemodynamically stable, room air pulse ox is 93%. No chest wall tenderness, no phlegm production no hemoptysis. Patient states his biggest complaint today is been able to eat or drink, because patient is scheduled for bronchoscopy with BAL by Dr. Mix today. He is really hoping to be able to go home after the procedure. Currently being treated with combination of azithromycin and Rocephin, and blood , urine and sputum cultures are negative thus far. On 10/11/2017 patient seen in follow-up. Status post bronchoscopy with BAL by Dr. Mix on 10/10/2017, brought washing cultures are still pending, click patient continues to improve, feels more energetic today. Denies any dyspnea, denies any chest wall tenderness, room air pulse ox is 95%, no fever, no chills. No cough. Follow-up chest x-ray was obtained today, and reviewed by Dr. Mix, and shows improvement in the aeration of the airspace disease in the left upper lobe. Patient has been ambulating about the unit, on room air, tolerating activity well. From pulmonary standpoint he is stable for discharge home with follow-up with Dr. Mix in the office in 7-10 days for follow-up chest x-ray. Objective - Vital Signs Vital signs: Vital Signs Temp 98.8 F 10/11/17 05:00 Pulse 107 H 10/11/17 05:00 Resp 16 10/11/17 05:00 BP 132/72 10/11/17 05:00 Pulse Ox 95 10/11/17 05:00 Intake & Output 10/10/17 10/11/17 10/11/17 18:59 06:59 18:59 Intake Total 800 1190 Balance 800 1190 Weight 90.855 kg Intake: IV 200 600 Sodium Chloride 0.9% 1, 600 000 ml @ 75 mls/hr IV . [id number] [facility] Rx#:[id number] Intake, IV Titration 600 Amount Sodium Chloride 0.9% 1, 600 000 ml @ 75 mls/hr IV . [id number] [facility] Rx#:[id number] Oral 590 Other: Voiding Method Toilet # Voids 4 2 # Bowel Movements 1 - Exam Physical Exam: Revealed a 52-year-old white male, does not appear acutely ill, in no distress. Head: Atraumatic, normocephalic. HEENT:[Neck is supple.] [No neck masses.] [No thyromegaly.] [No JVD.] Chest: [Diminished lung sounds over left posterior lower lobe, with diminished air entry, clear on the right Cardiac Exam: [Normal S1 and S2, no S3 gallop, no murmur.] Abdomen: [Soft, nontender, no megaly, no rebound, no guarding, normal bowel sounds.] Extremities: [No clubbing, no edema, no cyanosis.] Neurological Exam: [No focal neurologic deficit.] Psychiatric: Normal mood affect and mental status examination. Lymphatics: No lymphadenopathy. Skin: No rashes. - Labs CBC & Chem 7: 10/11/17 07:50 10/11/17 07:50 Labs: Abnormal Lab Results - Last 24 Hours (Table) 10/11/17 10/11/17 Range/Units 07:50 07:50 WBC 11.3 H (3.8-10.6) k/uL Hgb 12.9 L (13.0-17.5) gm/dL Plt Count 643 H (150-450) k/uL Neutrophils # 9.0 H (1.3-7.7) k/uL Calcium 8.3 L (8.4-10.2) mg/dL Microbiology - Last 24 Hours (Table) 10/10/17 13:50 Gram Stain - Preliminary Bronchial Washings - Left Bronchial Washings Culture - Preliminary 10/10/17 13:50 Acid Fast Bacilli Culture - Preliminary Lung - Left Upper Lobe 10/10/17 13:50 Fungal Culture - Preliminary Lung - Left Upper Lobe 10/08/17 16:20 Blood Culture Gram Stain - Preliminary Blood Blood Culture - Preliminary Coagulase Negative Staph 10/08/17 17:30 Blood Culture - Preliminary Blood No Growth after 48 hours 10/09/17 08:30 Urine Culture - Final Urine,Voided Assessment and Plan Plan: Assessment: 1 extensive left sided pneumonia involving the left upper lobe and superior segment of the left lower lobe, most likely secondary to community-acquired pneumonia, with failed outpatient treatment 2 possible underlying lymphoproliferative disorder, or possible underlying multiple myeloma. Hence we will request serum protein electrophoresis. 3 tobacco dependence syndrome 4 significant emphysema/COPD based on the CT of the chest findings. Recommendation: Bronch wash cultures are still pending, but clinically patient is improving, tolerating ambulation. No fever, no chills, no dyspnea, no cough, no phlegm production. Follow-up chest x-rays have been reviewed by Dr. Mix, shows improvement in the appearance of the airspace disease in the left upper lobe. No acute events overnight. Patient is stable for discharge home today on outpatient course of antibiotics, and the patient will see Dr. Mix in follow- up in 7-10 days. I performed a history & physical examination of the patient and discussed their management with my nurse practitioner, Reba Bond. I reviewed the nurse practitioner's note and agree with the documented findings and plan of care. Lung sounds are diminished breath sounds over left lower lobe. The findings and the impression was discussed with the patient. I attest to the documentation by the nurse practitioner. Time with Patient: Less than 30
[2017-10-11 16:26] LABS: Protein, Total 5.8 g/dL (6.2-8.2)
--- NOTE | 2017-10-11 17:49 | P.PN ---
Subjective Progress Note Date: 10/11/17 Principal diagnosis: shortness of breath, lung mass Patient seen today in follow-up, he is doing well status post bronchoscopy and biopsy, had his bone scan. Denies fevers, he is tolerating oral intake, breathing is improved since admission, slight cough, no hemoptysis, independently ambulatory, no new pain to report. Objective - Vital Signs Vital signs: Vital Signs Temp 98.8 F 10/11/17 05:00 Pulse 107 H 10/11/17 05:00 Resp 16 10/11/17 05:00 BP 132/72 10/11/17 05:00 Pulse Ox 95 10/11/17 05:00 Intake & Output 10/10/17 10/11/17 10/11/17 18:59 06:59 18:59 Intake Total 800 1190 600 Balance 800 1190 600 Weight 90.855 kg Intake: IV 200 600 Sodium Chloride 0.9% 1, 600 000 ml @ 75 mls/hr IV . [id number] ALTHEA Rx#:[id number] Intake, IV Titration 600 600 Amount Sodium Chloride 0.9% 1, 600 600 000 ml @ 75 mls/hr IV . [id number] ALTHEA Rx#:[id number] Oral 590 Other: Voiding Method Toilet # Voids 4 2 4 # Bowel Movements 1 - Constitutional General appearance: Present: average body habitus, cooperative, no acute distress - Respiratory Respiratory: bilateral: CTA - Cardiovascular Heart sounds: normal: S1, S2 - Gastrointestinal General gastrointestinal: Present: normal bowel sounds, soft - Neurologic Neurologic: Present: CNII-XII intact - Musculoskeletal Musculoskeletal: Present: strength equal bilaterally - Psychiatric Psychiatric: Present: A&O x's 3, appropriate affect, intact judgment & insight - Labs CBC & Chem 7: 10/11/17 07:50 10/11/17 07:50 Labs: Abnormal Lab Results - Last 24 Hours (Table) 10/11/17 10/11/17 Range/Units 07:50 07:50 WBC 11.3 H (3.8-10.6) k/uL Hgb 12.9 L (13.0-17.5) gm/dL Plt Count 643 H (150-450) k/uL Neutrophils # 9.0 H (1.3-7.7) k/uL Calcium 8.3 L (8.4-10.2) mg/dL Microbiology - Last 24 Hours (Table) 10/10/17 13:50 Gram Stain - Preliminary Bronchial Washings - Left Bronchial Washings Culture - Preliminary 10/10/17 13:50 Acid Fast Bacilli Culture - Preliminary Lung - Left Upper Lobe 10/10/17 13:50 Fungal Culture - Preliminary Lung - Left Upper Lobe 10/08/17 16:20 Blood Culture Gram Stain - Preliminary Blood Blood Culture - Preliminary Coagulase Negative Staph 10/08/17 17:30 Blood Culture - Preliminary Blood No Growth after 48 hours - Imaging and Cardiology nuclear medicine bone scan report reviewed Assessment and Plan (1) Lung mass Narrative/Plan: Patient is status post bronchoscopy and biopsy, path pending. Status: Acute Priority: High Code(s): R91.8 - OTHER NONSPECIFIC ABNORMAL FINDING OF LUNG FIELD SNOMED Code(s): 669836090 (2) Bone anomaly Narrative/Plan: Bone scan results reviewed with patient. No findings to suggest metastatic cancer lesions but, underlying marrow disease, such as myeloma or myeloproliferative disorder is mentioned as possibility. Workup has been ordered for the same. Status: Acute Priority: High Code(s): M95.9 - ACQUIRED DEFORMITY OF MUSCULOSKELETAL SYSTEM, UNSPECIFIED SNOMED Code(s): 920150147 Plan: Patient has follow-up appointments with Pulmonary and Oncology. patient is okay from Oncology standpoint to be discharged once he has been cleared by Attending and Consulting Physicians Doctor attests: I performed a history and physical examination of this patient, discussed with dictator. I agree with dictators note, documented as a scribe.
--- NOTE | 2017-10-11 18:39 | DS ---
DISCHARGE SUMMARY DATE OF SERVICE: 10/11/2017. FINAL DIAGNOSES: 1. Acute left-sided extensive pneumonia, left upper lobe, with a possibly cavitary lesion as well as involving the superior part of the left lower lobe with the failure of outpatient treatment, possibly community-acquired pneumonia. 2. Status post bronchoscopy and a biopsy. 3. Osseous lesions, but negative bone scan. 4. Increased WBC. 5. History of nicotine dependence. 6. Underlying chronic obstructive pulmonary disease. 7. History of THC. DISCHARGE DISPOSITION: The patient will be discharged in stable condition with a guarded prognosis. HISTORY OF PRESENT ILLNESS: This 52-year-old gentleman was admitted with extensive pneumonia on the left side as described earlier. The patient also had a cavitary lesion in the left upper lobe. Dr. Reynolds saw the patient. He was treated with antibiotics and as well as bronchodilators. Cultures are negative. Bronchoscopy did not show any evidence of any malignancy at this time. The bone scan was also negative for any evidence of malignancy; however, Dr. Reynolds recommended close outpatient followup. Dr. Nieto also saw the patient during the hospitalization. EXAM: Vital signs are stable. CARDIOVASCULAR: S1, S2 muffled. ABDOMEN: Soft. NERVOUS SYSTEM: No focal deficits. DISCHARGE ADVICE AND MEDICATIONS: Diet is cardiac. Activity limited until followup. Follow up with Dr. Smith in 2-3 days. Follow up with Dr. Reynolds, Dr. Nieto is recommended. MEDICATIONS: 1. Tylenol 650 every 6 hours p.r.n. 2. Symbicort 160/4.5 two puffs b.i.d. 3. Ceftin 500 mg p.o. b.i.d. 4. Cipro 500 mg p.o. b.i.d. for 1 week. 5. DuoNeb q.i.d. and p.r.n. 6. Habitrol 14. 7. No smoking. 8. Protonix 40 mg daily. Once again, the patient will be discharged in stable condition with guarded prognosis. MMODL / IJN: [id number] /
[2017-10-12] MEDS ORDERED: VANCOMYCIN TROUGH DUE 1 EACH MISC MISCELLANE ONE (07:00)
[2017-10-12 14:36] LABS: Albumin 2.35 g/dL (3.80-4.90)
== END 2017-10-11 16:58 | disposition home or self-care (01) | DRG 168 ==
LOC: EC 12:45 → 5MS5E 16:40
PROVIDERS: ADMIT Internal Medicine; ATTEND Internal Medicine
PROC: 0B9G8ZX Drainage of Left Upper Lung Lobe, Via Natural or Artificial Opening Endoscopic, Diagnostic (ICD-10-PCS; 2017-10-10)
PROC: 0B9H8ZX Drainage of Lung Lingula, Via Natural or Artificial Opening Endoscopic, Diagnostic (ICD-10-PCS; 2017-10-10)
PROC: 0B9J8ZX Drainage of Left Lower Lung Lobe, Via Natural or Artificial Opening Endoscopic, Diagnostic (ICD-10-PCS; principal; 2017-10-10 08:00)
DX: J18.9 Pneumonia, unspecified organism (principal); J43.9 Emphysema, unspecified; D47.3 Essential (hemorrhagic) thrombocythemia; R91.8 Other nonspecific abnormal finding of lung field; M95.9 Acquired deformity of musculoskeletal system, unspecified; Z87.891 Personal history of nicotine dependence; Z83.49 Family history of other endocrine, nutritional and metabolic diseases
CPT/HCPCS: 31624; 36415; 71046; 71250; 74018; 74176; 78306; 80048; 80053; 81001; 82150; 83690; 83883; 84165; 85025; 86334; 86738; 87040; 87070; 87086; 87102; 87116; 87205; 87206; 87252; 87449; 87496; 87498; 87502; 87529; 87581; 87634; 87798; 88108; 88305; 89050; 94640; 96361; 96374; 96375; 99284

== ENCOUNTER 2019-02-21 02:12 | Inpatient (IN) | payer OTHER ==
[2019-02-21] MEDS ORDERED: SODIUM CHLORIDE 0.9% 500 ML 500 ML IV STA (02:36)
[2019-02-21] MEDS ORDERED: IPRATROPIUM-ALBUTEROL 3 ML NEB INHALATION STA ×2 (02:37→04:11)
[2019-02-21] MEDS ORDERED: methylPREDNISolone SOD SUCCI 125 MG/2 ML VIAL IV STA (02:37)
[2019-02-21 03:11] LABS: Basophils # (A) 0.1 k/uL (0-0.2); Basophils % (A) 1 %; Eosinophils # (A) 0.4 k/uL (0-0.7); Eosinophils % (A) 4 %; HCT 44.4 % (39.0-53.0); Lymphocytes # (A) 1.3 k/uL (1.0-4.8); Lymphocytes % (A) 14 %; MCHC 33.8 g/dL (31.0-37.0); MCV 85.8 fL (80.0-100.0); Mean Platelet Volume 5.2; Monocytes # (A) 0.7 k/uL (0-1.0); Monocytes % (A) 7 %; Neutrophils # (A) 6.8 k/uL (1.3-7.7); Neutrophils % (A) 73 %; Platelet Count 395 k/uL (150-450); RBC 5.18 m/uL (4.30-5.90); RDW 14.6 % (11.5-15.5); WBC 9.4 k/uL (3.8-10.6)
[2019-02-21 03:23] LABS: D-Dimer 0.29 mg/L FEU (<0.60); INR 0.9 (<1.2); Partial Thromboplastin Time 25.3 sec (22.0-30.0); Prothrombin Time 9.5 sec (9.0-12.0)
--- NOTE | 2019-02-21 03:30 | ED ---
URI HPI - General Chief Complaint: Upper Respiratory Infection Stated Complaint: Shortness of Breath Time Seen by Provider: 02/21/19 02:26 Source: patient Mode of arrival: ambulatory Limitations: no limitations - History of Present Illness Initial Comments: 53-year-old male presented for cough shortness of breath. Patient states he has had a cough past week. He states he feels like he cannot get the sputum up. Patient denies fevers. He states the past 2 days he feels like he cannot expand his lungs. Denies any chest pain or pressure. Patient denies any pain with deep inspiration leg swelling hemoptysis history of cancer DVT or pulmonary embolism. Patient denies any recent surgeries, fractures, extremity injuries. Denies positional pattern of SOB. Patient states he is an everyday smoker. Patient denies any other complaints. Upon arrival patient does not appear in distress. - Related Data Home Medications Medication Instructions Recorded Confirmed Ibuprofen [Motrin Ib] 600 mg PO Q6H PRN 02/21/19 02/21/19 Previous Rx's Medication Instructions Recorded Albuterol Sulfate [Proair Hfa] 2 puff INHALATION Q6HR #1 inhaler 02/21/19 Cefuroxime Axetil [Ceftin] 500 mg PO BID 3 Days #6 tab 02/21/19 predniSONE 10 mg PO DIRECTED #30 tab 02/21/19 Allergies Allergy/AdvReac Type Severity Reaction Status Date / Time No Known Allergies Allergy Verified 02/21/19 09:04 Review of Systems ROS Statement: Those systems with pertinent positive or pertinent negative responses have been documented in the HPI. ROS Other: All systems not noted in ROS Statement are negative. Past Medical History Past Medical History: No Reported History History of Any Multi-Drug Resistant Organisms: None Reported Past Surgical History: Tonsillectomy Past Psychological History: No Psychological Hx Reported Smoking Status: Current every day smoker Past Alcohol Use History: Occasional Past Drug Use History: Marijuana - Past Family History Mother Additional Family Medical History / Comment(s): none Father Additional Family Medical History / Comment(s): at 73 years due to complications from a goiter removal General Exam - General Exam Comments Initial Comments: General: The patient is awake and alert, in no distress Eye: +3 mm pupils are equal, round and reactive to light, extra-ocular movements are intact. No nystagmus. There is normal conjunctiva bilaterally. No signs of icterus. No photophobia Ears, nose, mouth and throat: There are moist mucous membranes and no oral lesions. Oropharynx was not erythematous there is no tonsillar enlargement exudates or lesions. Uvula midline. Tympanic membranes are not erythematous or is no effusions bulging or retraction. No tenderness to palpation of the mastoid. No anterior cervical lymphadenopathy. Rhinorrhea, clear and bilateral nares. Neck: The neck is supple, there is no tenderness or JVD. No nuchal rigidity Cardiovascular: There is a regular rate and rhythm. No murmur, rub or gallop is appreciated. Respiratory: Diminished lung sounds b/l, respirations are non-labored, breath sounds are equal. Expiratory wheeze, No stridor, rales. Rhonchi noted. No retractions or abdominal breathing. Gastrointestinal: Soft, non-distended, non-tender abdomen without masses or organomegaly noted. There is no rebound or guarding present. Bowel sounds are unremarkable. Musculoskeletal: Normal ROM, no tenderness. Strength 5/5. Sensation intact. Radial pulses equal bilaterally 2+. Neurological: A&O x 3. CN II-XII intact grossly, There are no obvious motor or sensory deficits. Coordination appears grossly intact. Speech appears normal, no muffling. Skin: Skin is warm and dry and no rashes or lesions are noted. No extremity edema Psychiatric: Cooperative Limitations: no limitations Course Vital Signs 02/21/19 02/21/19 02/21/19 02:16 03:06 03:10 Temperature 97.9 F Pulse Rate 120 H 115 H 113 H Respiratory 20 16 16 Rate Blood Pressure 128/78 130/81 O2 Sat by Pulse 96 93 L Oximetry 02/21/19 02/21/19 02/21/19 03:19 03:20 03:25 Temperature Pulse Rate 104 H 112 H 101 H Respiratory 11 L Rate Blood Pressure 130/81 O2 Sat by Pulse 96 Oximetry 02/21/19 02/21/19 02/21/19 03:30 03:40 03:50 Temperature Pulse Rate 112 H 112 H 122 H Respiratory 19 20 34 H Rate Blood Pressure 130/81 140/81 140/81 O2 Sat by Pulse 93 L Oximetry 02/21/19 02/21/19 02/21/19 04:00 04:10 04:20 Temperature Pulse Rate 111 H 114 H 116 H Respiratory 20 31 H 16 Rate Blood Pressure 140/81 113/69 113/69 O2 Sat by Pulse Oximetry 02/21/19 02/21/19 02/21/19 04:30 04:40 04:42 Temperature Pulse Rate 112 H 113 H 111 H Respiratory 12 15 Rate Blood Pressure 113/69 123/64 O2 Sat by Pulse Oximetry 02/21/19 02/21/19 02/21/19 04:48 04:50 05:00 Temperature Pulse Rate 114 H 111 H 112 H Respiratory 19 30 H Rate Blood Pressure 123/64 123/64 O2 Sat by Pulse Oximetry Medical Decision Making - Medical Decision Making 53-year-old male presenting for shortness of breath. Diminished lung sounds on exam patient every day smoker given 2 DuoNeb treatments minimal improvement. Chest x-ray revealed findings consistent with scarring and possible development of upper lobe pneumonia patient continues to have persistent tachycardia. No significant laboratory study abnormalities. Patient will be admitted for duoneb, antibiotic treatment. Patient agreeable. - Lab Data Result diagrams: 02/21/19 03:00 02/21/19 03:00 Lab Results 02/21/19 02/21/19 02/21/19 Range/Units 03:00 03:00 03:00 WBC 9.4 (3.8-10.6) k/uL RBC 5.18 (4.30-5.90) m/uL Hgb 15.0 (13.0-17.5) gm/dL Hct 44.4 (39.0-53.0) % MCV 85.8 (80.0-100.0) fL MCH 29.0 (25.0-35.0) pg MCHC 33.8 (31.0-37.0) g/dL RDW 14.6 (11.5-15.5) % Plt Count 395 (150-450) k/uL Neutrophils % 73 % Lymphocytes % 14 % Monocytes % 7 % Eosinophils % 4 % Basophils % 1 % Neutrophils # 6.8 (1.3-7.7) k/uL Lymphocytes # 1.3 (1.0-4.8) k/uL Monocytes # 0.7 (0-1.0) k/uL Eosinophils # 0.4 (0-0.7) k/uL Basophils # 0.1 (0-0.2) k/uL PT 9.5 (9.0-12.0) sec INR 0.9 (<1.2) APTT 25.3 (22.0-30.0) sec D-Dimer 0.29 (<0.60) mg/L FEU Sodium 140 (137-145) mmol/L Potassium 4.2 (3.5-5.1) mmol/L Chloride 107 (98-107) mmol/L Carbon Dioxide 23 (22-30) mmol/L Anion Gap 10 mmol/L BUN 27 H (9-20) mg/dL Creatinine 0.77 (0.66-1.25) mg/dL Est GFR (CKD-EPI)AfAm >90 (>60 ml/min/1.73 sqM) Est GFR (CKD-EPI)NonAf >90 (>60 ml/min/1.73 sqM) Glucose 105 H (74-99) mg/dL Calcium 9.6 (8.4-10.2) mg/dL Total Bilirubin 0.4 (0.2-1.3) mg/dL AST 33 (17-59) U/L ALT 53 (21-72) U/L Alkaline Phosphatase 132 H (38-126) U/L Troponin I (0.000-0.034) ng/mL NT-Pro-B Natriuret Pep pg/mL Total Protein 7.6 (6.3-8.2) g/dL Albumin 4.5 (3.5-5.0) g/dL 02/21/19 02/21/19 Range/Units 03:00 03:00 WBC (3.8-10.6) k/uL RBC (4.30-5.90) m/uL Hgb (13.0-17.5) gm/dL Hct (39.0-53.0) % MCV (80.0-100.0) fL MCH (25.0-35.0) pg MCHC (31.0-37.0) g/dL RDW (11.5-15.5) % Plt Count (150-450) k/uL Neutrophils % % Lymphocytes % % Monocytes % % Eosinophils % % Basophils % % Neutrophils # (1.3-7.7) k/uL Lymphocytes # (1.0-4.8) k/uL Monocytes # (0-1.0) k/uL Eosinophils # (0-0.7) k/uL Basophils # (0-0.2) k/uL PT (9.0-12.0) sec INR (<1.2) APTT (22.0-30.0) sec D-Dimer (<0.60) mg/L FEU Sodium (137-145) mmol/L Potassium (3.5-5.1) mmol/L Chloride (98-107) mmol/L Carbon Dioxide (22-30) mmol/L Anion Gap mmol/L BUN (9-20) mg/dL Creatinine (0.66-1.25) mg/dL Est GFR (CKD-EPI)AfAm (>60 ml/min/1.73 sqM) Est GFR (CKD-EPI)NonAf (>60 ml/min/1.73 sqM) Glucose (74-99) mg/dL Calcium (8.4-10.2) mg/dL Total Bilirubin (0.2-1.3) mg/dL AST (17-59) U/L ALT (21-72) U/L Alkaline Phosphatase (38-126) U/L Troponin I <0.012 (0.000-0.034) ng/mL NT-Pro-B Natriuret Pep 61 pg/mL Total Protein (6.3-8.2) g/dL Albumin (3.5-5.0) g/dL Disposition Clinical Impression: Pneumonia, SOB (shortness of breath), COPD exacerbation Disposition: ADMITTED IP TO [facility] Condition: Stable Is patient prescribed a controlled substance at d/c from ED?: No Time of Disposition: 04:20 Decision to Admit Reason: Admit from EC Decision Date: 02/21/19 Decision Time: 04:20
--- NOTE | 2019-02-21 03:35 | XR ---
EXAMINATION TYPE: XR chest 2V DATE OF EXAM: 02/21/2019 COMPARISON: 10/11/2017 HISTORY: Cough. Pneumonia. TECHNIQUE: Frontal and lateral views of the chest are obtained. FINDINGS: There is mild pulmonary hyperinflation. There is coarse linear interstitial density in the left midlung and right upper lobe. There is some emphysematous change at the lung apices. Heart size is normal. There is no heart failure. There is no pleural effusion. IMPRESSION: There is a chronic infiltrate left midlung that is improved compared to old exam. There is a new infiltrate right upper lobe consistent with pneumonia and scarring compared to old exam. [employer] D. No heart failure.
[2019-02-21 03:41] LABS: ALT 53 U/L (21-72); AST 33 U/L (17-59); African American GFR (CKD) >90 (>60 ml/min/1.73 sqM); Albumin 4.5 g/dL (3.5-5.0); Alkaline Phosphatase 132 U/L (38-126); Anion Gap 10 mmol/L; Blood Urea Nitrogen 27 mg/dL (9-20); Calcium 9.6 mg/dL (8.4-10.2); Carbon Dioxide 23 mmol/L (22-30); Chloride 107 mmol/L (98-107); Glucose 105 mg/dL (74-99); Non-African American GFR(CKD) >90 (>60 ml/min/1.73 sqM); Potassium 4.2 mmol/L (3.5-5.1); Sodium 140 mmol/L (137-145); Total Bilirubin 0.4 mg/dL (0.2-1.3); Total Protein 7.6 g/dL (6.3-8.2)
[2019-02-21] MEDS ORDERED: cefTRIAXone IN SWFI 1,000 MG/10 ML SYRINGE IVP ONE (04:00)
[2019-02-21] MEDS ORDERED: IPRATROPIUM-ALBUTEROL 3 ML NEB INHALATION PRN (04:18)
[2019-02-21] MEDS ORDERED: SODIUM CHLORIDE 0.9% 1,000 ML IV SCH (04:30)
[2019-02-21 06:22] VITALS: BP 124/72; TEMP 97.7
[2019-02-21 06:23] VITALS: PULSE 114
[2019-02-21] MEDS ORDERED: IPRATROPIUM-ALBUTEROL 3 ML NEB INHALATION SCH (08:00)
[2019-02-21 08:13] VITALS: RESP 18
[2019-02-21] MEDS ORDERED: IBUPROFEN 400 MG TAB PO PRN (08:17)
[2019-02-21] MEDS ORDERED: predniSONE 20 MG TAB PO SCH (09:00)
--- NOTE | 2019-02-22 01:23 | HP ---
HISTORY AND PHYSICAL This is a combination history and physical examination and discharge summary. HISTORY AND PHYSICAL/DISCHARGE SUMMARY: CHIEF COMPLAINT: Shortness of breath. HISTORY OF PRESENT ILLNESS: This 53-year-old gentleman with a past medical history of multiple medical problems, history of pneumonia, history of chronic bronchitis, not being followed by any primary physician in the outpatient setting was having increased shortness of breath, cough for the past 1 week. The patient was unable to get the sputum up and because of increasing difficulty, the patient came to [facility] and last night the shortness of breath was much more. The patient also had extremely shortness of breath and the patient was given IV steroids and antibiotics and bronchodilators. Patient improved significantly. Patient being discharged at this time. Chest x-ray showed some bilateral infiltrates which is rather chronic in nature. The patient is extremely keen on going home at this time. PAST MEDICAL HISTORY: History of pneumonia, history of tonsillectomy, history of nicotine dependence. MEDICATIONS: Prior to admission include medications none. ALLERGIES: None. FAMILY HISTORY: No history of heart disease or strokes in the family. SOCIAL HISTORY: History of smoking, history of THC. REVIEW OF SYSTEMS: ENT: No diminished vision. No diminished hearing. CARDIOVASCULAR SYSTEM: As mentioned earlier. RESPIRATORY: As mentioned earlier. GI: No nausea or vomiting. no dysuria. CENTRAL NERVOUS SYSTEM: No numbness or weakness. ALLERGY/IMMUNOLOGY: No asthma or hayfever. MUSCULOSKELETAL as mentioned earlier. HEMATOLOGY/ONCOLOGY: No history of anemia. ENDOCRINE: No history of diabetes or hypothyroidism. CONSTITUTIONAL: As mentioned earlier. DERMATOLOGY: Negative. RHEUMATOLOGY: Negative. PSYCHIATRY: As mentioned earlier. PHYSICAL EXAMINATION: Patient is alert and oriented times three. Pulse is 108, blood pressure 124/72, respiration 20, temp 97.7, pulse ox 98% on room air. Conjunctivae normal. Oral mucosa moist. NECK is no jugular venous distention. No carotid bruit. No lymph node enlargement. CARDIOVASCULAR SYSTEMS: S1, S2. RESPIRATORY: Bilateral scattered rhonchi and crackles. Expiratory wheezing also present. ABDOMEN: Soft, nontender. No mass palpable. LEGS: No edema. No swelling. NERVOUS SYSTEM: Higher functions as mentioned earlier. Moves all 4 limbs no focal motor or sensory deficits. SKIN: No ulcer, no rash and no bleeding. JOINTS: No active deforming arthropathy. LABS: CBC within normal limits and other labs are sodium 140, alkaline phosphatase 132. Chest x-ray personally reviewed. ASSESSMENT: 1. Chronic obstructive pulmonary disease acute exacerbation with acute purulent tracheobronchitis. 2. Chronic parenchymal changes. 3. Continued ongoing nicotine dependence. 4. History of pneumonia. 5. History of THC. RECOMMENDATIONS AND DISCUSSION: This 53-year-old gentleman who presented with multiple medical issues, at this time. The patient has improved significantly. The patient is extremely keen on going home. I recommend the patient to stop smoking and closely follow up with Dr. Smith in the outpatient setting. DISCHARGE ADVICE AND MEDICATIONS: 1. Discharge diet is cardiac diet. 2. Activity limited until followup. 3. Stop smoking. 4. Follow up with Dr. Smith in the outpatient setting in 2-3 days. DISCHARGE MEDICATIONS ARE: 1. Motrin 600 mg p.r.n. 2. Ceftin 500 mg p.o. b.i.d. for 3 days. 3. Prednisone taper that is 40 mg p.o. daily for 3 days, 30 for 3 days, 20 for 3 days, 10 for 3 days. 4. Albuterol ProAir 2 puffs q.6h. Further evaluation per outpatient. Once again, the patient is extremely keen on going home. MMODL / IJN: [id number] /
== END 2019-02-21 12:28 | disposition home or self-care (01) | DRG 192 ==
LOC: EC 02:12 → 4MS4W 04:29
PROVIDERS: ADMIT Hospitalist; ATTEND Hospitalist
DX: J44.1 Chronic obstructive pulmonary disease with (acute) exacerbation (principal); J44.0 Chronic obstructive pulmonary disease with (acute) lower respiratory infection; Z87.01 Personal history of pneumonia (recurrent); J20.9 Acute bronchitis, unspecified; Z71.6 Tobacco abuse counseling; F17.210 Nicotine dependence, cigarettes, uncomplicated; K31.89 Other diseases of stomach and duodenum
CPT/HCPCS: 36415; 71046; 80053; 83880; 84484; 85025; 85379; 85610; 85730; 93005; 94640; 96361; 96374; 96375; 99285

== ENCOUNTER → 2019-09-05 | Outpatient (CLI) | payer SELFPAY ==
--- NOTE | 2019-09-05 13:43 | XR ---
EXAMINATION TYPE: XR chest 2V DATE OF EXAM: 09/05/2019 COMPARISON: 02/21/2019 TECHNIQUE: PA and lateral views submitted. HISTORY: Cough FINDINGS: There is a large area of consolidation left upper lobe which has a masslike configuration with small left effusion. Hyperinflation suggests COPD. Heart size normal. Hypertrophic and degenerative change of the spine. IMPRESSION: 1. A masslike area of consolidation left lung with small pleural effusion. Correlate for neoplasm lynnette jin round pneumonia. CT of the chest recommended.
== END | disposition home or self-care (01) ==
LOC: RADXRMAIN 13:22
PROVIDERS: ATTEND Internal Medicine
DX: J90 Pleural effusion, not elsewhere classified (principal); R91.8 Other nonspecific abnormal finding of lung field
CPT/HCPCS: 71046

== ENCOUNTER → 2019-09-14 | Outpatient (CLI) | payer SELFPAY ==
--- NOTE | 2019-09-15 20:43 | CT ---
EXAMINATION TYPE: CT chest w con DATE OF EXAM: 09/14/2019 COMPARISON: 10/09/2012 HISTORY: 54-year-old male lung mass TECHNIQUE: Contiguous axial scanning of the chest after the administration of 100 mL of Isovue 300. Coronal/sagittal reconstructions performed. CT DLP: 350.3mGycm. Automatic exposure control utilized for a dose reduction. FINDINGS: Heart normal size with small pericardial effusion measuring 9 mm thick anteriorly. Aorta normal caliber with variant direct takeoff of the left vertebral artery directly from the aorti c arch. The right vertebral artery is dominant. Borderline enlarged caliber to the main right and left pulmonary arteries measuring up to 2.6 cm may reflect underlying pulmonary hypertension. Some enlarging right paratracheal lymph nodes measuring up to 1.1 cm. Similar prominent 9 mm and 1.3 cm subcarinal lymph nodes. There may be an enlarged 1.4 cm left infrahilar lymph node. Advanced bullous emphysema redemonstrated. New extensive complex mixed solid enhancing and complex fluid collection area throughout the peripher y of the left midlung measuring up to 13.9 cm AP by 7.0 cm wide by 8.4 cm craniocaudal. Internal flui d collections are present. Air-fluid level changes. Small left pleural effusion with peripheral pleural thickening. Circumferential wall thickening of the distal esophagus. Correlation can be made to 4 possibility of esophagitis. Visualized upper abdomen shows a stable 1.6 cm hypodensity in segment 4 suggesting a sunil ign etiology such as a cyst. Bones: Mild generalized heterogeneous appearance to the marrow is unchanged from prior. Small endplat e Schmorl's nodes throughout. IMPRESSION: 1. Advanced bullous emphysema redemonstrated. 2. Large, 13.9 x 8.4 x 7.0 cm complex cavitary mass versus irregular consolidation with cavitary stubbs ge. Findings could represent severe pneumonia including atypical infections with secondary multilocul ar abscess formation versus extensive cavitary neoplasm possibly with superinfection. [facility] work[facility] and management. 3. Left hilar and a few mediastinal lymph nodes show slight enlargement from 10/09/2017, largest in th e left hilum measuring 1.4 cm. These may be reactive. 4. Small pericardial effusion and small complex left pleural effusion. 5. Circumferential wall thickening distal esophagus. Correlate for esophagitis. Direct visualization as indicated.
== END | disposition home or self-care (01) ==
LOC: RADCTMAIN 06:58
PROVIDERS: ATTEND Internal Medicine
DX: J43.9 Emphysema, unspecified (principal); J90 Pleural effusion, not elsewhere classified; I31.3 Pericardial effusion (noninflammatory); R59.0 Localized enlarged lymph nodes
CPT/HCPCS: 71260; Q9967

== ENCOUNTER 2020-10-31 14:46 | Emergency (ER) | payer OTHER ==
[2020-10-31 14:52] VITALS: TEMP 99
[2020-10-31] MEDS ORDERED: ONDANSETRON 4 MG/2 ML VIAL IVP STA (15:22)
[2020-10-31] MEDS ORDERED: SODIUM CHLORIDE 0.9% 1,000 ML IV STA ×2 (15:22→15:26)
[2020-10-31] MEDS ORDERED: FAMOTIDINE 20 MG/2 ML VIAL IV STA (15:26)
--- NOTE | 2020-10-31 15:36 | ED ---
Nausea/Vomiting/Diarrhea HPI - General Chief complaint: Nausea/Vomiting/Diarrhea Stated complaint: vomiting Time Seen by Provider: 10/31/20 15:01 Source: patient Mode of arrival: ambulatory Limitations: no limitations - History of Present Illness Initial comments: 55-year-old male presents to the emergency department with chief complaint of nausea vomiting. Patient reports the symptoms been ongoing for past 3 days. Patient reports he is attempted to drink plenty of water but he is throwing up most of it. Patient reports some epigastric pain after vomiting episodes but otherwise no complaints of any abdominal pain. Patient denies any constipation or diarrhea. States that he is urinating more the usual but denies any dysuria or increased urgency. He denies any back pain chest pain shortness of breath. States his mouth is dry due to the vomiting. Denies any fevers or chills. Denies hematuria, hematochezia or melena. - Related Data Home Medications Medication Instructions Recorded Confirmed Ibuprofen [Motrin Ib] 600 mg PO Q6H PRN 02/21/19 02/21/19 Previous Rx's Medication Instructions Recorded Albuterol Sulfate [Proair Hfa] 2 puff INHALATION Q6HR #1 inhaler 02/21/19 Cefuroxime Axetil [Ceftin] 500 mg PO BID 3 Days #6 tab 02/21/19 predniSONE 10 mg PO DIRECTED #30 tab 02/21/19 Ondansetron Odt [Zofran Odt] 4 mg PO Q8HR PRN #10 tab 10/31/20 Allergies Allergy/AdvReac Type Severity Reaction Status Date / Time No Known Allergies Allergy Verified 10/31/20 14:52 Review of Systems ROS Statement: Those systems with pertinent positive or pertinent negative responses have been documented in the HPI. ROS Other: All systems not noted in ROS Statement are negative. Past Medical History Past Medical History: No Reported History History of Any Multi-Drug Resistant Organisms: None Reported Past Surgical History: Tonsillectomy Past Anesthesia/Blood Transfusion Reactions: No Reported Reaction Past Psychological History: No Psychological Hx Reported Smoking Status: Current every day smoker Past Alcohol Use History: Occasional Past Drug Use History: Marijuana - Past Family History Mother Additional Family Medical History / Comment(s): none Father Additional Family Medical History / Comment(s): at 73 years due to complications from a goiter removal General Exam Limitations: no limitations General appearance: alert, in no apparent distress Head exam: Present: atraumatic, normocephalic, normal inspection Eye exam: Present: normal appearance, PERRL, EOMI Pupils: Present: normal accommodation ENT exam: Present: normal exam, normal oropharynx, mucous membranes dry Neck exam: Present: normal inspection, full ROM. Absent: tenderness Respiratory exam: Present: normal lung sounds bilaterally. Absent: respiratory distress, wheezes, rales, rhonchi, stridor Cardiovascular Exam: Present: normal rhythm, tachycardia, normal heart sounds GI/Abdominal exam: Present: soft. Absent: distended, tenderness, guarding, rebound Extremities exam: Present: normal inspection, full ROM, normal capillary refill. Absent: tenderness, pedal edema, joint swelling Back exam: Present: normal inspection, full ROM. Absent: tenderness, CVA tenderness (R), CVA tenderness (L) Neurological exam: Present: alert, oriented X3, CN II-XII intact, normal gait Psychiatric exam: Present: normal affect, normal mood Skin exam: Present: warm, dry, intact, normal color Course Vital Signs 10/31/20 10/31/20 14:49 17:44 Temperature 99.0 F Pulse Rate 118 H 114 H Respiratory 18 17 Rate Blood Pressure 124/77 114/85 O2 Sat by Pulse 96 93 L Oximetry Medical Decision Making - Medical Decision Making 55-year-old male presents to the emergency department with chief complaint of nausea vomiting. On physical examination, no abdominal tenderness. He is clinically dry. Patient has leukocytosis of 20 6K. CMP shows elevated BUN. Ketones in the urine. No signs of urinary tract infection. Patient was given 2 L of IV fluids. He was also given antiemetics and Protonix. On reevaluation, he reports improvement in symptoms. I will discharge her with Zofran. I did reevaluate his abdomen multiple times and there is no tenderness. He has no other complaints. I did inform them that his white blood cell count is elevated and he is to follow-up with his primary care physician or return to emergency department if any changes to his symptoms occur. Strict return parameters were thoroughly discussed the patient was understanding and agreeable. He does have tachycardia baseline. Case discussed with - Lab Data Result diagrams: 10/31/20 16:10 10/31/20 16:10 Lab Results 10/31/20 10/31/20 10/31/20 Range/Units 16:00 16:10 16:10 WBC 26.8 H (3.8-10.6) k/uL RBC 5.13 (4.30-5.90) m/uL Hgb 13.5 (13.0-17.5) gm/dL Hct 42.0 (39.0-53.0) % MCV 81.8 (80.0-100.0) fL MCH 26.4 (25.0-35.0) pg MCHC 32.2 (31.0-37.0) g/dL RDW 14.8 (11.5-15.5) % Plt Count 496 H (150-450) k/uL MPV 7.3 Neutrophils % 86 % Lymphocytes % 5 % Monocytes % 6 % Eosinophils % 1 % Basophils % 1 % Neutrophils # 23.0 H (1.3-7.7) k/uL Lymphocytes # 1.3 (1.0-4.8) k/uL Monocytes # 1.7 H (0-1.0) k/uL Eosinophils # 0.2 (0-0.7) k/uL Basophils # 0.1 (0-0.2) k/uL Sodium 139 (137-145) mmol/L Potassium 4.3 (3.5-5.1) mmol/L Chloride 100 (98-107) mmol/L Carbon Dioxide 22 (22-30) mmol/L Anion Gap 17 mmol/L BUN 33 H (9-20) mg/dL Creatinine 0.93 (0.66-1.25) mg/dL Est GFR (CKD-EPI)AfAm >90 (>60 ml/min/1.73 sqM) Est GFR (CKD-EPI)NonAf >90 (>60 ml/min/1.73 sqM) Glucose 146 H (74-99) mg/dL Calcium 9.6 (8.4-10.2) mg/dL Total Bilirubin 0.7 (0.2-1.3) mg/dL AST 22 (17-59) U/L ALT 22 (4-49) U/L Alkaline Phosphatase 166 H (38-126) U/L Total Protein 7.4 (6.3-8.2) g/dL Albumin 4.2 (3.5-5.0) g/dL Lipase 12 L (23-300) U/L Urine Color Urine Appearance (Clear) Urine pH (5.0-8.0) Ur Specific [place] (1.001-1.035) Urine Protein (Negative) Urine Glucose (UA) (Negative) Urine Ketones (Negative) Urine Blood (Negative) Urine Nitrite (Negative) Urine Bilirubin (Negative) Urine Urobilinogen (<2.0) mg/dL Ur Leukocyte Esterase (Negative) Urine RBC (0-5) /hpf Urine WBC (0-5) /hpf Hyaline Casts (0-2) /lpf Urine Mucus (None) /hpf Coronavirus (PCR) Not Detected (Not Detectd) 10/31/20 Range/Units 17:26 WBC (3.8-10.6) k/uL RBC (4.30-5.90) m/uL Hgb (13.0-17.5) gm/dL Hct (39.0-53.0) % MCV (80.0-100.0) fL MCH (25.0-35.0) pg MCHC (31.0-37.0) g/dL RDW (11.5-15.5) % Plt Count (150-450) k/uL MPV Neutrophils % % Lymphocytes % % Monocytes % % Eosinophils % % Basophils % % Neutrophils # (1.3-7.7) k/uL Lymphocytes # (1.0-4.8) k/uL Monocytes # (0-1.0) k/uL Eosinophils # (0-0.7) k/uL Basophils # (0-0.2) k/uL Sodium (137-145) mmol/L Potassium (3.5-5.1) mmol/L Chloride (98-107) mmol/L Carbon Dioxide (22-30) mmol/L Anion Gap mmol/L BUN (9-20) mg/dL Creatinine (0.66-1.25) mg/dL Est GFR (CKD-EPI)AfAm (>60 ml/min/1.73 sqM) Est GFR (CKD-EPI)NonAf (>60 ml/min/1.73 sqM) Glucose (74-99) mg/dL Calcium (8.4-10.2) mg/dL Total Bilirubin (0.2-1.3) mg/dL AST (17-59) U/L ALT (4-49) U/L Alkaline Phosphatase (38-126) U/L Total Protein (6.3-8.2) g/dL Albumin (3.5-5.0) g/dL Lipase (23-300) U/L Urine Color Yellow Urine Appearance Cloudy (Clear) Urine pH 5.5 (5.0-8.0) Ur Specific [place] 1.025 (1.001-1.035) Urine Protein 2+ H (Negative) Urine Glucose (UA) Negative (Negative) Urine Ketones 2+ H (Negative) Urine Blood Moderate H (Negative) Urine Nitrite Negative (Negative) Urine Bilirubin Negative (Negative) Urine Urobilinogen <2.0 (<2.0) mg/dL Ur Leukocyte Esterase Negative (Negative) Urine RBC 5 (0-5) /hpf Urine WBC 2 (0-5) /hpf Hyaline Casts 16 H (0-2) /lpf Urine Mucus Many H (None) /hpf Coronavirus (PCR) (Not Detectd) Disposition Clinical Impression: Dehydration, Nausea & vomiting Disposition: HOME SELF-CARE Condition: Stable Additional Instructions: Please return to the Emergency Department if symptoms worsen or any other concerns. Prescriptions: Ondansetron Odt [Zofran Odt] 4 mg PO Q8HR PRN #10 tab PRN Reason: Nausea Is patient prescribed a controlled substance at d/c from ED?: No Referrals: Leta Smith MD [Primary Care Provider] - 1-2 days Time of Disposition: 18:04
[2020-10-31 16:20] LABS: Basophils # (A) 0.1 k/uL (0-0.2); Basophils % (A) 1 %; Eosinophils # (A) 0.2 k/uL (0-0.7); Eosinophils % (A) 1 %; HGB 13.5 gm/dL (13.0-17.5); Lymphocytes # (A) 1.3 k/uL (1.0-4.8); Lymphocytes % (A) 5 %; MCH 26.4 pg (25.0-35.0); MCHC 32.2 g/dL (31.0-37.0); MCV 81.8 fL (80.0-100.0); Mean Platelet Volume 7.3; Monocytes # (A) 1.7 k/uL (0-1.0); Monocytes % (A) 6 %; Neutrophils % (A) 86 %; Platelet Count 496 k/uL (150-450); RBC 5.13 m/uL (4.30-5.90); RDW 14.8 % (11.5-15.5); WBC 26.8 k/uL (3.8-10.6)
[2020-10-31 16:28] LABS: ALT 22 U/L (4-49); AST 22 U/L (17-59); African American GFR (CKD) >90 (>60 ml/min/1.73 sqM); Albumin 4.2 g/dL (3.5-5.0); Alkaline Phosphatase 166 U/L (38-126); Anion Gap 17 mmol/L; Blood Urea Nitrogen 33 mg/dL (9-20); Calcium 9.6 mg/dL (8.4-10.2); Carbon Dioxide 22 mmol/L (22-30); Chloride 100 mmol/L (98-107); Glucose 146 mg/dL (74-99); Lipase 12 U/L (23-300); Non-African American GFR(CKD) >90 (>60 ml/min/1.73 sqM); Potassium 4.3 mmol/L (3.5-5.1); Sodium 139 mmol/L (137-145); Total Bilirubin 0.7 mg/dL (0.2-1.3); Total Protein 7.4 g/dL (6.3-8.2)
[2020-10-31 17:36] LABS: Appearance,Urine Cloudy (Clear); Bilirubin,Urine Negative (Negative); Blood,Urine Moderate (Negative); Color,Urine Yellow; Glucose,Urine (UA) Negative (Negative); Hyaline Casts,Urine 16 /lpf (0-2); Ketones,Urine 2+ (Negative); Leukocyte Esterase,Urine Negative (Negative); Mucus,Urine Many /hpf; Nitrite,Urine Negative (Negative); PH, Urine 5.5 (5.0-8.0); Protein,Urine 2+ (Negative); RBC,Urine 5 /hpf (0-5); Specific Gravity,Urine 1.025 (1.001-1.035); Urobilinogen,Urine <2.0 mg/dL (<2.0); WBC,Urine 2 /hpf (0-5)
[2020-10-31 17:45] VITALS: BP 114/85; PULSE 114; RESP 17
[2020-10-31] MEDS ORDERED: ONDANSETRON 4 MG ODT STARTER PACK 2 TAB BTL PO STA (18:01)
== END 2020-10-31 18:10 | disposition home or self-care (01) ==
LOC: EC 14:46
DX: E86.0 Dehydration (principal); R11.2 Nausea with vomiting, unspecified; F17.200 Nicotine dependence, unspecified, uncomplicated; Z79.1 Long term (current) use of non-steroidal anti-inflammatories (NSAID); Z79.52 Long term (current) use of systemic steroids; Z79.899 Other long term (current) drug therapy
CPT/HCPCS: 36415; 93005; 80053; 83690; 85025; 81001; 87635; 96374; 96375; 96361 ×2; 99284; J2405; S0119

== ENCOUNTER 2020-11-02 15:16 | Inpatient (IN) | payer OTHER ==
[2020-11-02 16:17] LABS: Basophils # (A) 0.1 k/uL (0-0.2); Basophils % (A) 0 %; Eosinophils # (A) 0.2 k/uL (0-0.7); Eosinophils % (A) 1 %; HCT 39.8 % (39.0-53.0); HGB 12.6 gm/dL (13.0-17.5); Lymphocytes # (A) 1.2 k/uL (1.0-4.8); Lymphocytes % (A) 6 %; MCH 26.1 pg (25.0-35.0); MCHC 31.6 g/dL (31.0-37.0); MCV 82.6 fL (80.0-100.0); Monocytes # (A) 1.3 k/uL (0-1.0); Monocytes % (A) 6 %; Neutrophils % (A) 86 %; Platelet Count 529 k/uL (150-450); RBC 4.82 m/uL (4.30-5.90); RDW 15.1 % (11.5-15.5); WBC 22.3 k/uL (3.8-10.6)
--- NOTE | 2020-11-02 16:28 | XR ---
EXAMINATION TYPE: XR chest 2V DATE OF EXAM: 11/02/2020 COMPARISON: 09/05/2019 HISTORY: 55-year-old male with cough and fever TECHNIQUE: PA and lateral views FINDINGS: Further obscuration of the left heart margin. It has bullous emphysema redemonstrated. Increasing con solidation into the left upper lobe now with progressive cavitary change and air fluid level at the l eft midlung. Cavitary mass measures approximately 10.3 cm. IMPRESSION: 1. Advanced bullous emphysema. 2. New and worsening consolidation on the left now extending up into the left upper lung suggests pne umonia. 3. Progressive cavitary change in the left midlung now with an air-fluid level. Correlate for cavitar y pneumonia or cavitary neoplasm with superinfection. Correlate with findings on prior workup.
[2020-11-02 16:30] LABS: ALT 29 U/L (4-49); AST 28 U/L (17-59); African American GFR (CKD) >90 (>60 ml/min/1.73 sqM); Albumin 3.9 g/dL (3.5-5.0); Alkaline Phosphatase 220 U/L (38-126); Anion Gap 17 mmol/L; Blood Urea Nitrogen 30 mg/dL (9-20); Calcium 9.1 mg/dL (8.4-10.2); Carbon Dioxide 23 mmol/L (22-30); Chloride 101 mmol/L (98-107); Glucose 138 mg/dL (74-99); Non-African American GFR(CKD) 83 (>60 ml/min/1.73 sqM); Potassium 3.6 mmol/L (3.5-5.1); Sodium 141 mmol/L (137-145); Total Bilirubin 0.9 mg/dL (0.2-1.3)
[2020-11-02] MEDS ORDERED: ACETAMINOPHEN TAB 500 MG TAB PO STA (17:03)
[2020-11-02] MEDS ORDERED: SODIUM CHLORIDE 0.9% 2,000 ML IV ONE (17:04)
[2020-11-02] MEDS ORDERED: ONDANSETRON 4 MG/2 ML VIAL IVP STA (17:56)
--- NOTE | 2020-11-02 18:15 | ED ---
General Adult HPI - General Chief complaint: Nausea/Vomiting/Diarrhea Stated complaint: revisit - dehydration Time Seen by Provider: 11/02/20 16:38 Source: patient Mode of arrival: ambulatory Limitations: no limitations - History of Present Illness Initial comments: Patient is a 55-year-old male with past medical history of recurrent pneumonia who presents emergency Department with reported nausea and vomiting. Patient was seen on Monday for similar complaint. Laboratory studies were conducted. Patient had a white count 26,000. He was sent home with ID Quantique. States that the [employer] only worked temporarily. He is back to having nausea and vomiting and unable to hold down any fluids. Patient denies any fevers however does present and has a temp of 101. Admits to a productive cough. Denies any chest pain. No abdominal pain. Denies any changes in bowel or bladder habits. Other alleviating, presentation modifying factors - Related Data Home Medications Medication Instructions Recorded Confirmed Ibuprofen [Motrin Ib] 600 mg PO ONCE PRN 02/21/19 11/02/20 Previous Rx's Medication Instructions Recorded Ondansetron Odt [Zofran Odt] 4 mg PO Q8HR PRN #10 tab 10/31/20 Allergies Allergy/AdvReac Type Severity Reaction Status Date / Time No Known Allergies Allergy Verified 11/02/20 19:02 Review of Systems ROS Statement: Those systems with pertinent positive or pertinent negative responses have been documented in the HPI. ROS Other: All systems not noted in ROS Statement are negative. Past Medical History Past Medical History: No Reported History History of Any Multi-Drug Resistant Organisms: None Reported Past Surgical History: Tonsillectomy Past Anesthesia/Blood Transfusion Reactions: No Reported Reaction Past Psychological History: No Psychological Hx Reported Smoking Status: Current some day smoker Past Alcohol Use History: Occasional Past Drug Use History: Marijuana - Past Family History Mother Additional Family Medical History / Comment(s): none Father Additional Family Medical History / Comment(s): at 73 years due to complications from a goiter removal General Exam Limitations: no limitations Course Vital Signs 11/02/20 11/02/20 11/02/20 15:54 19:32 20:00 Temperature 101 F H 98.4 F Pulse Rate 141 H 112 H Pulse Rate [ 120 H Pulse Oximetery ] Respiratory 18 18 19 Rate Blood Pressure 116/75 133/70 Blood Pressure 121/70 [Left Arm] O2 Sat by Pulse 92 L 98 93 L Oximetry 11/02/20 22:55 Temperature Pulse Rate 110 H Pulse Rate [ Pulse Oximetery ] Respiratory 18 Rate Blood Pressure 132/68 Blood Pressure [Left Arm] O2 Sat by Pulse 98 Oximetry EKG Findings - EKG Comments: EKG Findings:: EKG demonstrates sinus tachycardia with occasional PVCs. Rate of 124. [place] interval of 138. QRS 116. QTC of 456. Right bundle branch block present. Left axis deviation. EKG is compared to previous and is similar morphology Medical Decision Making - Medical Decision Making Upon arrival patient was placed into room 8. History and physical symptoms performed. It is established and the patient is given a 2 L bolus normal saline as well as 1000 mg of Tylenol. Laboratory studies were conducted. Blood cultures obtained. Patient is given Zofran for nausea. Laboratory studies reveal a white count of 22,000. Chest x-ray demonstrates a developing infiltrate on the left upper lung. Progressive cavitary changes in the left midlung now with air-fluid level. Patient is a poor historian. Cannot give me details of his previous workup for his cavitary lesion. Patient will be placed on Zosyn and Vanco. Recommended hospital admission for which the patient did agree to. I spoke with Agustin from [facility] who agree to admit the patient. I will place pulmonology on consult. Patient remained in stable condition awaiting a bed on the floor - Lab Data Result diagrams: 11/02/20 16:04 11/02/20 16:04 Lab Results 11/02/20 11/02/20 11/02/20 Range/Units 16:04 16:04 16:04 WBC 22.3 H (3.8-10.6) k/uL RBC 4.82 (4.30-5.90) m/uL Hgb 12.6 L (13.0-17.5) gm/dL Hct 39.8 (39.0-53.0) % MCV 82.6 (80.0-100.0) fL MCH 26.1 (25.0-35.0) pg MCHC 31.6 (31.0-37.0) g/dL RDW 15.1 (11.5-15.5) % Plt Count 529 H (150-450) k/uL MPV 7.0 Neutrophils % 86 % Lymphocytes % 6 % Monocytes % 6 % Eosinophils % 1 % Basophils % 0 % Neutrophils # 19.0 H (1.3-7.7) k/uL Lymphocytes # 1.2 (1.0-4.8) k/uL Monocytes # 1.3 H (0-1.0) k/uL Eosinophils # 0.2 (0-0.7) k/uL Basophils # 0.1 (0-0.2) k/uL Sodium 141 (137-145) mmol/L Potassium 3.6 (3.5-5.1) mmol/L Chloride 101 (98-107) mmol/L Carbon Dioxide 23 (22-30) mmol/L Anion Gap 17 mmol/L BUN 30 H (9-20) mg/dL Creatinine 1.02 (0.66-1.25) mg/dL Est GFR (CKD-EPI)AfAm >90 (>60 ml/min/1.73 sqM) Est GFR (CKD-EPI)NonAf 83 (>60 ml/min/1.73 sqM) Glucose 138 H (74-99) mg/dL Plasma Lactic Acid Sam 0.9 (0.7-2.0) mmol/L Calcium 9.1 (8.4-10.2) mg/dL Total Bilirubin 0.9 (0.2-1.3) mg/dL AST 28 (17-59) U/L ALT 29 (4-49) U/L Alkaline Phosphatase 220 H (38-126) U/L Total Protein 7.0 (6.3-8.2) g/dL Albumin 3.9 (3.5-5.0) g/dL Urine Color Urine Appearance (Clear) Urine pH (5.0-8.0) Ur Specific [place] (1.001-1.035) Urine Protein (Negative) Urine Glucose (UA) (Negative) Urine Ketones (Negative) Urine Blood (Negative) Urine Nitrite (Negative) Urine Bilirubin (Negative) Urine Urobilinogen (<2.0) mg/dL Ur Leukocyte Esterase (Negative) Urine RBC (0-5) /hpf Urine WBC (0-5) /hpf Ur Squamous Epith Cells (0-4) /hpf Hyaline Casts (0-2) /lpf Granular Casts (0) /lpf Urine Mucus (None) /hpf 11/02/20 Range/Units 18:00 WBC (3.8-10.6) k/uL RBC (4.30-5.90) m/uL Hgb (13.0-17.5) gm/dL Hct (39.0-53.0) % MCV (80.0-100.0) fL MCH (25.0-35.0) pg MCHC (31.0-37.0) g/dL RDW (11.5-15.5) % Plt Count (150-450) k/uL MPV Neutrophils % % Lymphocytes % % Monocytes % % Eosinophils % % Basophils % % Neutrophils # (1.3-7.7) k/uL Lymphocytes # (1.0-4.8) k/uL Monocytes # (0-1.0) k/uL Eosinophils # (0-0.7) k/uL Basophils # (0-0.2) k/uL Sodium (137-145) mmol/L Potassium (3.5-5.1) mmol/L Chloride (98-107) mmol/L Carbon Dioxide (22-30) mmol/L Anion Gap mmol/L BUN (9-20) mg/dL Creatinine (0.66-1.25) mg/dL Est GFR (CKD-EPI)AfAm (>60 ml/min/1.73 sqM) Est GFR (CKD-EPI)NonAf (>60 ml/min/1.73 sqM) Glucose (74-99) mg/dL Plasma Lactic Acid Sam (0.7-2.0) mmol/L Calcium (8.4-10.2) mg/dL Total Bilirubin (0.2-1.3) mg/dL AST (17-59) U/L ALT (4-49) U/L Alkaline Phosphatase (38-126) U/L Total Protein (6.3-8.2) g/dL Albumin (3.5-5.0) g/dL Urine Color Dark Yellow Urine Appearance Cloudy (Clear) Urine pH 6.0 (5.0-8.0) Ur Specific [place] 1.029 (1.001-1.035) Urine Protein 2+ H (Negative) Urine Glucose (UA) Negative (Negative) Urine Ketones 1+ H (Negative) Urine Blood Moderate H (Negative) Urine Nitrite Negative (Negative) Urine Bilirubin 1+ H (Negative) Urine Urobilinogen 2.0 (<2.0) mg/dL Ur Leukocyte Esterase Negative (Negative) Urine RBC 10 H (0-5) /hpf Urine WBC 4 (0-5) /hpf Ur Squamous Epith Cells <1 (0-4) /hpf Hyaline Casts 19 H (0-2) /lpf Granular Casts 2 (0) /lpf Urine Mucus Many H (None) /hpf Disposition Clinical Impression: Lung mass, Nausea & vomiting, Leukocytosis, CAP (community acquired pneumonia), Tachycardia Disposition: ADMITTED IP TO THIS HOSP Condition: Stable Is patient prescribed a controlled substance at d/c from ED?: No Decision to Admit Reason: Admit from EC Decision Date: 11/02/20 Decision Time: 18:15
[2020-11-02 18:21] LABS: Appearance,Urine Cloudy (Clear); Bilirubin,Urine 1+ (Negative); Blood,Urine Moderate (Negative); Color,Urine Dark Yellow; Glucose,Urine (UA) Negative (Negative); Granular Casts,Urine 2 /lpf (0); Hyaline Casts,Urine 19 /lpf (0-2); Ketones,Urine 1+ (Negative); Leukocyte Esterase,Urine Negative (Negative); Mucus,Urine Many /hpf; Nitrite,Urine Negative (Negative); Protein,Urine 2+ (Negative); RBC,Urine 10 /hpf (0-5); Specific Gravity,Urine 1.029 (1.001-1.035); Squamous Epithelial Cell,Urine <1 /hpf (0-4); WBC,Urine 4 /hpf (0-5)
[2020-11-02] MEDS ORDERED: NALOXONE 0.4 MG/ML 1 ML VIAL IV PRN (18:21)
[2020-11-02] MEDS ORDERED: IBUPROFEN 400 MG TAB PO PRN (18:21)
[2020-11-02] MEDS ORDERED: ACETAMINOPHEN TAB 325 MG TAB PO PRN (18:21)
[2020-11-02] MEDS ORDERED: VANCOMYCIN IV PER PHARMACY 1 EACH MISC MISCELLANE PRN (18:23)
[2020-11-02] MEDS ORDERED: VANCOMYCIN 1,500 MG in SODIUM CHLORIDE 0.9% 250 ML IVPB STA (18:30)
[2020-11-02] MEDS ORDERED: PIPERACILLIN-TAZOBACTAM 3.375 GM in SODIUM CHLORIDE 0.9% 100 ML IVPB STA (18:35)
[2020-11-02] MEDS: SODIUM CHLORIDE 0.9% 1,000 ML IV SCH (20:38)
[2020-11-03] MEDS: SODIUM CHLORIDE 0.9% 1,000 ML IV SCH ×3 (03:32→19:17)
[2020-11-03] MEDS: VANCOMYCIN 1,500 MG in SODIUM CHLORIDE 0.9% 250 ML IVPB SCH ×2 (03:59→12:41)
[2020-11-03] MEDS: ONDANSETRON 4 MG/2 ML VIAL IVP PRN ×2 (04:00→15:59)
[2020-11-03] MEDS: PIPERACILLIN-TAZOBACTAM 3.375 GM in SODIUM CHLORIDE 0.9% 100 ML IVPB SCH ×2 (08:12→16:00)
--- NOTE | 2020-11-03 09:57 | P.CNPUL ---
History of Present Illness Consult date: 11/03/20 Requesting physician: Mira Olguin Reason for consult: other Chief complaint: Abnormal chest x-ray, cavitary lesion, left lung. History of present illness: Pulmonary/critical care consultation dated 11/03/2020. 55-year-old male, who presents to the emergency room, on November 02, complaining of nausea, vomiting, and diarrhea. The patient was apparently in the emergency room a day before or 2 days before, with similar complaints. He was treated with Zofran for his nausea, which seemed to work temporarily. He came back into the emergency room on the , with similar complaints. In addition, he did have a slight temperature elevation. He denies any pulmonary complaints to me including cough, wheezing, shortness of breath, or any other complaints for that matter. I am seeing the patient because of an abnormal chest x-ray, which shows a cavitary lesion in the left lung. Back in 2018, my partner did a bronchoscopy and BAL. At that time, the patient had a infiltrate in the same exact location as the abnormality is present currently. Now, the differences cavitation with an air-fluid level. 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 Nonetheless, the plan is to discharge the patient once his GI issues have resolved, and I can see the patient as an outpatient. The pa simón should have a PET scan as an outpatient, and be discharged home on some oral antibiotics for at least 6-8 weeks. I will see the patient in the office, and plan subsequent decisions. White count is 22.3, hemoglobin 12.6, hematocrit 9.8, and platelet count 529,000. Sodium potassium chloride CO2 all normal. Anion gap is 17. BUN and creatinine were 30 and 1.02. Lactic acid was 0.9. Urine was dark yellow and cloudy. There is 2+ protein, nitrite and leukocyte esterase are both negative. Only 4 WBCs, but no bacteria. Chest x-rays from November 02, September 04, and 2017, are all reviewed. Review of Systems REVIEW OF SYSTEMS: CONSTITUTIONAL: [Negative.] NEUROLOGIC: [ Negative.] HEENT: [ Negative.] CARDIAC: [Negative.] PULMONARY: The patient denies all pulmonary complaints at this time. GI: Nausea, and vomiting, with dehydration. : [Negative.] RHEUMATOLOGIC: [ Negative.] IMMUNOLOGIC: [ Negative.] ENDOCRINE: [Negative. ] DERMATOLOGIC: [Negative.] Past Medical History Past Medical History: No Reported History History of Any Multi-Drug Resistant Organisms: None Reported Past Surgical History: Tonsillectomy Past Anesthesia/Blood Transfusion Reactions: No Reported Reaction Past Psychological History: No Psychological Hx Reported Smoking Status: Current some day smoker Past Alcohol Use History: Occasional Past Drug Use History: Marijuana - Past Family History Mother Additional Family Medical History / Comment(s): none Father Additional Family Medical History / Comment(s): at 73 years due to complications from a goiter removal Medications and Allergies Home Medications Medication Instructions Recorded Confirmed Type Ibuprofen [Motrin Ib] 600 mg PO ONCE PRN 02/21/19 11/02/20 History Ondansetron Odt [Zofran Odt] 4 mg PO Q8HR PRN #10 tab 10/31/20 11/02/20 Rx Allergies Allergy/AdvReac Type Severity Reaction Status Date / Time No Known Allergies Allergy Verified 11/02/20 19:02 Physical Exam Osteopathic Statement: *. No significant issues noted on an osteopathic structural exam other than those noted in the History and Physical/Consult. Vitals: Vital Signs Temp Pulse Pulse Resp BP BP Pulse Ox 11/03/20 08:00 98.6 F 125 H 18 148/64 91 L 11/03/20 02:00 99.5 F 120 H 19 106/54 90 L 11/02/20 23:40 120 H 19 11/02/20 22:55 110 H 18 132/68 98 11/02/20 20:00 98.4 F 120 H 19 121/70 93 L 11/02/20 19:32 112 H 18 133/70 98 11/02/20 15:54 101 F H 141 H 18 116/75 92 L Intake and Output 11/02/20 11/03/20 11/03/20 22:59 06:59 14:59 Intake Total 480 Balance 480 Intake: Oral 480 Other: Weight 95.254 kg No acute distress, oriented 3. Room air saturation 98%. HEENT examination is grossly unremarkable. Neck supple. Full range of motion. No adenopathy thyromegaly or neck vein distention. Cardiovascular examination reveals regular rhythm rate. S1-S2 normal. No S3 or S4. No discernible murmur noted. Heart rate about 100 bpm. Lungs reveal clear breath sounds. Breath sounds are equal bilaterally. No adventitious lung sounds including wheezes rhonchi or crackles. Abdomen soft bowel sounds are heard. No masses or tenderness. Abdomen mildly distended. Extremities are intact. No cyanosis clubbing or edema. Skin is without rash or lesion. Neurologic examination is brief but nonfocal. Results - Laboratory Findings CBC and BMP: 11/02/20 16:04 11/02/20 16:04 Abnormal lab findings: Abnormal Labs 11/02/20 11/02/20 11/02/20 16:04 16:04 18:00 WBC 22.3 H Hgb 12.6 L Plt Count 529 H Neutrophils # 19.0 H Monocytes # 1.3 H BUN 30 H Glucose 138 H Alkaline Phosphatase 220 H Urine Protein 2+ H Urine Ketones 1+ H Urine Blood Moderate H Urine Bilirubin 1+ H Urine RBC 10 H Hyaline Casts 19 H Urine Mucus Many H - Diagnostic Findings Chest x-ray: image reviewed Assessment and Plan Assessment: Nausea, with vomiting, and probable dehydration, which may relate to a GI viral infection/gastroenteritis. History of ongoing tobacco use with nicotine addiction. Abnormal chest x-ray dating all the way back to 2018, initially with an infiltrate in the left lung, now with a cavitary lesion and an air-fluid level. This may relate to underlying cavitary cancer and/or anaerobic lung abscess. Status post bronchoscopy with BAL, and negative results, 2018. Plan: Plan dated 11/03/2020. We talked to the patient about his situation. Currently, his nausea and vomiting are improved. He feels like his stomach is getting back to normal. He denies all pulmonary complaints including shortness of breath, cough, wheezing, chest tightness, phlegm production, and hemoptysis, etc. He tells us that he needs to make a trip down the [place], his mother apparently recently passed. I told him that I would see him in the outpatient setting. He would need an outpatient PET scan, and is discharged, she go home on a long course of oral antibiotic, such as Augmentin. 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 We will continue to follow make recommendations where appropriate. Time with Patient: Greater than 30
[2020-11-03] MEDS ORDERED: traMADol 50 MG TAB PO PRN (10:17)
[2020-11-03 11:03] LABS: HCT 35.3 % (39.6-50.0); HGB 10.6 g/dL (13.0-17.0); MCV 83.3 fL (80.0-97.0); Platelet Count 491 X 10*3/uL (140-440); RBC 4.24 X 10*6/uL (4.40-5.60); RDW 16.8 % (11.5-14.5); WBC 20.19 X 10*3/uL (4.50-10.00)
[2020-11-03 12:11] LABS: Basophils # (A) 0.08 X 10*3/uL (0.00-0.10); Basophils % (A) 0.4 %; Eosinophils # (A) 0.07 X 10*3/uL (0.04-0.35); Eosinophils % (A) 0.3 %; Lymphocytes % (A) 6.4 %; Monocytes # (A) 2.21 X 10*3/uL (0.20-1.00); Monocytes % (A) 10.9 %; Neutrophils # (A) 16.37 X 10*3/uL (1.80-7.70); Neutrophils % (A) 81.2 %
--- NOTE | 2020-11-03 12:30 | P.HPIM ---
History of Present Illness Patient is a pleasant 55-year-old male came in with comments of nausea vomiting diarrhea patient is found to have fever and that is also found to have leukocytosis with white blood cell count of 22,000. Patient had high-grade fever with temperature of 101, patient was also comparing of cough with sputum production. Patient the had a history of cavitary lesion which was diagnosed in 2019. Patient can use to have this cavitary lesion which is bit worse along with some pneumonia around the lesion. Patient was a valid by pulmonology the recommending a follow-up PET scan as an outpatient. UA is not significant for any infection patient doesn't have any symptoms of urinary tract infection. Patient is bit tachycardic with heart rate of 125 which is sinus tachycardia with occasional PVCs. We will obtain a TSH, and a normal patient was started on beta marge. REVIEW OF SYSTEMS: CONSTITUTIONAL: As mentioned in HPI HEENT: No recent visual problems or hearing problems. Denied any sore throat. CARDIOVASCULAR: No chest pain, orthopnea, PND, no palpitations, no syncope. PULMONARY: As mentioned in HPI GASTROINTESTINAL: No diarrhea, no nausea, no vomiting, no abdominal pain. NEUROLOGICAL: No headaches, no weakness, no numbness. HEMATOLOGICAL: Denies any bleeding or petechiae. GENITOURINARY: Denies any burning micturition, frequency, or urgency. MUSCULOSKELETAL/RHEUMATOLOGICAL: Denies any joint pain, swelling, or any muscle pain. ENDOCRINE: Denies any polyuria or polydipsia. The rest of the 14-point review of systems is negative. PHYSICAL EXAMINATION: GENERAL: The patient is alert and oriented x3, not in any acute distress. Well developed, well nourished. HEENT: Pupils are round and equally reacting to light. EOMI. No scleral icterus. No conjunctival pallor. Normocephalic, atraumatic. No pharyngeal erythema. No thyromegaly. CARDIOVASCULAR: S1 and S2 present. No murmurs, rubs, or gallops. PULMONARY: Chest is clear to auscultation, no wheezing or crackles. ABDOMEN: Soft, nontender, nondistended, normoactive bowel sounds. No palpable organomegaly. MUSCULOSKELETAL: No joint swelling or deformity. EXTREMITIES: No cyanosis, clubbing, or pedal edema. NEUROLOGICAL: Gross neurological examination did not reveal any focal deficits. SKIN: No rashes. Assessment and plan -Sepsis: Most probably secondary to pneumonia patient does have a cavitary lesion with the pneumonia surrounding it. Patient will be continued on Zosyn and vancomycin, infectious disease will be consulted 7 cultures will be obtained. -Nausea vomiting secondary to peptic ulcer disease or gastritis from ibuprofen which will be discontinued patient was started on Protonix continue Zofran on as-needed basis -Leukocytosis due to assessment #1 -Asymptomatic bacteriuria -Nicotine use patient is trying to quit and did quit multiple times -Cavitary lesion patient was evaluated for cancer in the past which was negative . DVT prophylaxis: Lovenox Past Medical History Past Medical History: No Reported History History of Any Multi-Drug Resistant Organisms: None Reported Past Surgical History: Tonsillectomy Past Anesthesia/Blood Transfusion Reactions: No Reported Reaction Past Psychological History: No Psychological Hx Reported Smoking Status: Current some day smoker Past Alcohol Use History: Occasional Past Drug Use History: Marijuana - Past Family History Mother Additional Family Medical History / Comment(s): none Father Additional Family Medical History / Comment(s): at 73 years due to complications from a goiter removal Medications and Allergies Home Medications Medication Instructions Recorded Confirmed Type Ibuprofen [Motrin Ib] 600 mg PO ONCE PRN 02/21/19 11/02/20 History Ondansetron Odt [Zofran Odt] 4 mg PO Q8HR PRN #10 tab 10/31/20 11/02/20 Rx Allergies Allergy/AdvReac Type Severity Reaction Status Date / Time No Known Allergies Allergy Verified 11/02/20 19:02 Physical Exam Vitals: Vital Signs Temp Pulse Pulse Resp BP BP Pulse Ox 11/03/20 08:00 98.6 F 125 H 18 148/64 91 L 11/03/20 02:00 99.5 F 120 H 19 106/54 90 L 11/02/20 23:40 120 H 19 11/02/20 22:55 110 H 18 132/68 98 11/02/20 20:00 98.4 F 120 H 19 121/70 93 L 11/02/20 19:32 112 H 18 133/70 98 11/02/20 15:54 101 F H 141 H 18 116/75 92 L Intake and Output 11/02/20 11/03/20 11/03/20 22:59 06:59 14:59 Intake Total 480 Balance 480 Intake: Oral 480 Other: Weight 95.254 kg Results CBC & Chem 7: 11/03/20 06:45 11/02/20 16:04 Labs: Abnormal Lab Results - Last 24 Hours (Table) 11/02/20 11/02/20 11/02/20 Range/Units 16:04 16:04 18:00 WBC 22.3 H (3.8-10.6) k/uL RBC (4.40-5.60) X 10*6/uL Hgb 12.6 L (13.0-17.5) gm/dL Hct (39.6-50.0) % MCH (27.0-32.0) pg MCHC (32.0-37.0) g/dL RDW (11.5-14.5) % Plt Count 529 H (150-450) k/uL Plt Count Comment Immature Gran # (0.00-0.04) X 10*3/uL Neutrophils # 19.0 H (1.3-7.7) k/uL Monocytes # 1.3 H (0-1.0) k/uL BUN 30 H (9-20) mg/dL Glucose 138 H (74-99) mg/dL Alkaline Phosphatase 220 H (38-126) U/L Urine Protein 2+ H (Negative) Urine Ketones 1+ H (Negative) Urine Blood Moderate H (Negative) Urine Bilirubin 1+ H (Negative) Urine RBC 10 H (0-5) /hpf Hyaline Casts 19 H (0-2) /lpf Urine Mucus Many H (None) /hpf 11/03/20 Range/Units 06:45 WBC 20.19 H (3.8-10.6) k/uL RBC 4.24 L (4.40-5.60) X 10*6/uL Hgb 10.6 L (13.0-17.5) gm/dL Hct 35.3 L (39.6-50.0) % MCH 25.0 L (27.0-32.0) pg MCHC 30.0 L (32.0-37.0) g/dL RDW 16.8 H (11.5-14.5) % Plt Count 491 H (150-450) k/uL Plt Count Comment INCREASED A Immature Gran # 0.16 H (0.00-0.04) X 10*3/uL Neutrophils # 16.37 H (1.3-7.7) k/uL Monocytes # 2.21 H (0-1.0) k/uL BUN (9-20) mg/dL Glucose (74-99) mg/dL Alkaline Phosphatase (38-126) U/L Urine Protein (Negative) Urine Ketones (Negative) Urine Blood (Negative) Urine Bilirubin (Negative) Urine RBC (0-5) /hpf Hyaline Casts (0-2) /lpf Urine Mucus (None) /hpf Thrombosis Risk Factor Assmnt - Choose All That Apply Each Factor Represents 1 point: Age 41-60 years Thrombosis Risk Factor Assessment Total Risk Factor Score: 1 Thrombosis Risk Factor Assessment Level: Low Risk
[2020-11-03] MEDS: PANTOPRAZOLE 40 MG/10 ML VIAL IVP SCH ×2 (12:42→23:18)
[2020-11-03 14:52] LABS: African American GFR (CKD) 111.8 (60.0-200.0); Anion Gap 13.9 mmol/L (4.00-12.00); BUN/Creat Ratio 23.33 Ratio (12.00-20.00); Carbon Dioxide 25.1 mmol/L (21.6-31.8); Non-African American GFR(CKD) 96.5 (60.0-200.0); Potassium 3.3 mmol/L (3.5-5.5)
[2020-11-03] MEDS: guaiFENesin 600 MG TABLET.ER PO SCH (23:19)
--- NOTE | 2020-11-03 23:25 | P.CONS ---
History of Present Illness - Reason for Consult Consult date: 11/03/20 cavitatory pneumonia Requesting physician: Mira Olguin - Chief Complaint fever and cough x few days - History of Present Illness History of present illness : Patient is a 55-year male presenting to the ER last evening for evaluation of nausea and vomiting the patient symptoms started on Monday and patient mention he was unable to keep anything down patient was evaluated in the ER he did have elevated 106,000 however the patient was sent home on Zofran patient mention he did not have significant improvement with Zofran and he started having a cough with some purulent sputum patient denies having any chest pain or worsening shortness of breath patient also having a fever at home of 101 F did consult the patient patient presented to hospital with the symptoms on arrival to the ER patient did have fever of 101 F, The patient was tachycardic and hypoxic patient did have white count of 22,000 with a left shift kidney function was normal urine was negative blood culture has been obtained patient did have a chest x-ray new and worsening consolidation on the left no extending into the left upper lung suggestive of pneumonia with progressive cavitary changes in the left midlung now with air- fluid level patient has been admitted to hospital patient started on vancomycin and Zosyn infectious disease was consulted for further management of antibiotic therapy Review of system: Positive point has been mentioned in HPI rest of the systems are negative Past medical history : Reviewed, documented below Past surgical history : Reviewed, documented below Social history: Reviewed, documented below Medications: Reviewed, as documented below GENERAL DESCRIPTION: Middle-aged male lying in bed, no distress. No tachypnea or accessory muscle of respiration use. HEENT: Shows Pallor , no scleral icterus. Oral mucous membrane is dry. NECK: Trachea central, no thyromegaly. LUNGS: Unlabored breathing. Coarse breath sounds left side. No wheeze or crac kle. HEART: S1, S2, regular rate and rhythm. ABDOMEN: Soft, no tenderness , guarding or rigidity EXTREMITIES: No edema of feet. SKIN: No rash, no masses palpable. NEUROLOGICAL: The patient is awake, alert, oriented x3, mood and affect normal. LABS AND RADIOLOGY: Reviewed results see below Assessment : Patient presented to hospital with sepsis in this patient who did have a fever tachycardia elevated white count with a cavitary pneumonia on the left side concern for possible aspiration pneumonia underlying malignancy nonicteric fluid and will need to cover for the polymicrobial delfin usually associated with this types of infection Plan: 1-obtain sputum for Gram stain and culture CRP and procalcitonin 2-vancomycin pharmacy to dose her with a target trough of 15 while watching her kidney function and Vanco trough closely. 3-discontinue Zosyn start the patient on Unasyn to decrease risk of nephrotoxicity We will follow on clinical condition and cultures to further adjust medication if needed Thank you for this consultation we will follow the patient along with you Past Medical History Past Medical History: No Reported History History of Any Multi-Drug Resistant Organisms: None Reported Past Surgical History: Tonsillectomy Past Anesthesia/Blood Transfusion Reactions: No Reported Reaction Past Psychological History: No Psychological Hx Reported Smoking Status: Current some day smoker Past Alcohol Use History: Occasional Past Drug Use History: Marijuana - Past Family History Mother Additional Family Medical History / Comment(s): none Father Additional Family Medical History / Comment(s): at 73 years due to complications from a goiter removal Medications and Allergies Home Medications Medication Instructions Recorded Confirmed Type Ibuprofen [Motrin Ib] 600 mg PO ONCE PRN 02/21/19 11/02/20 History Ondansetron Odt [Zofran Odt] 4 mg PO Q8HR PRN #10 tab 10/31/20 11/02/20 Rx Allergies Allergy/AdvReac Type Severity Reaction Status Date / Time No Known Allergies Allergy Verified 11/02/20 19:02 Physical Exam Vitals: Vital Signs Temp Pulse Pulse Resp BP BP Pulse Ox 11/03/20 14:00 97.7 F 105 H 18 129/79 91 L 11/03/20 08:00 98.6 F 125 H 18 148/64 91 L 11/03/20 02:00 99.5 F 120 H 19 106/54 90 L 11/02/20 23:40 120 H 19 11/02/20 22:55 110 H 18 132/68 98 11/02/20 20:00 98.4 F 120 H 19 121/70 93 L 11/02/20 19:32 112 H 18 133/70 98 Results CBC & Chem 7: 11/03/20 06:45 11/03/20 06:45 Labs: Abnormal Lab Results - Last 24 Hours (Table) 11/02/20 11/02/20 11/03/20 Range/Units 16:04 18:00 06:45 WBC 20.19 H (4.50-10.00) X 10*3/uL RBC 4.24 L (4.40-5.60) X 10*6/uL Hgb 10.6 L (13.0-17.0) g/dL Hct 35.3 L (39.6-50.0) % MCH 25.0 L (27.0-32.0) pg MCHC 30.0 L (32.0-37.0) g/dL RDW 16.8 H (11.5-14.5) % Plt Count 491 H (140-440) X 10*3/uL Plt Count Comment INCREASED A Immature Gran # 0.16 H (0.00-0.04) X 10*3/uL Neutrophils # 16.37 H (1.80-7.70) X 10*3/uL Monocytes # 2.21 H (0.20-1.00) X 10*3/uL Potassium (3.5-5.5) mmol/L Anion Gap (4.00-12.00) mmol/L BUN 30 H (9-20) mg/dL BUN/Creatinine Ratio (12.00-20.00) Ratio Glucose 138 H (74-99) mg/dL Calcium (8.7-10.3) mg/dL Alkaline Phosphatase 220 H (38-126) U/L Urine Protein 2+ H (Negative) Urine Ketones 1+ H (Negative) Urine Blood Moderate H (Negative) Urine Bilirubin 1+ H (Negative) Urine RBC 10 H (0-5) /hpf Hyaline Casts 19 H (0-2) /lpf Urine Mucus Many H (None) /hpf 08 Range/Units 06:45 WBC (4.50-10.00) X 10*3/uL RBC (4.40-5.60) X 10*6/uL Hgb (13.0-17.0) g/dL Hct (39.6-50.0) % MCH (27.0-32.0) pg MCHC (32.0-37.0) g/dL RDW (11.5-14.5) % Plt Count (140-440) X 10*3/uL Plt Count Comment Immature Gran # (0.00-0.04) X 10*3/uL Neutrophils # (1.80-7.70) X 10*3/uL Monocytes # (0.20-1.00) X 10*3/uL Potassium 3.3 L (3.5-5.5) mmol/L Anion Gap 13.90 H (4.00-12.00) mmol/L BUN (9-20) mg/dL BUN/Creatinine Ratio 23.33 H (12.00-20.00) Ratio Glucose 160 H (74-99) mg/dL Calcium 8.0 L (8.7-10.3) mg/dL Alkaline Phosphatase (38-126) U/L Urine Protein (Negative) Urine Ketones (Negative) Urine Blood (Negative) Urine Bilirubin (Negative) Urine RBC (0-5) /hpf Hyaline Casts (0-2) /lpf Urine Mucus (None) /hpf
[2020-11-04] MEDS: AMPICILLIN-SULBACTAM 3 GM in SODIUM CHLORIDE 0.9% 100 ML IVPB SCH ×4 (00:06→17:31)
[2020-11-04] MEDS: VANCOMYCIN 1,500 MG in SODIUM CHLORIDE 0.9% 250 ML IVPB SCH ×4 (00:07→22:22)
[2020-11-04] MEDS: SODIUM CHLORIDE 0.9% 1,000 ML IV SCH ×2 (00:09→08:21)
[2020-11-04] MEDS: guaiFENesin 600 MG TABLET.ER PO SCH ×2 (08:21→20:39)
[2020-11-04] MEDS: ENOXAPARIN 40 MG/0.4 ML SYRINGE SQ SCH (08:21)
[2020-11-04] MEDS: PANTOPRAZOLE 40 MG/10 ML VIAL IVP SCH (08:21)
[2020-11-04 10:29] LABS: African American GFR (CKD) >90 (>60 ml/min/1.73 sqM); Anion Gap 8 mmol/L; Blood Urea Nitrogen 15 mg/dL (9-20); Calcium 8.1 mg/dL (8.4-10.2); Carbon Dioxide 26 mmol/L (22-30); Chloride 103 mmol/L (98-107); Glucose 176 mg/dL (74-99); Non-African American GFR(CKD) >90 (>60 ml/min/1.73 sqM); Sodium 137 mmol/L (137-145)
[2020-11-04] MEDS ORDERED: POTASSIUM CHLORIDE ER 20 MEQ TAB.ER PO STA (11:10)
[2020-11-04] MEDS: METOPROLOL TARTRATE 25 MG TAB PO SCH ×2 (11:51→20:38)
[2020-11-04] MEDS: 0.9% NACL WITH KCL 20 MEQ/L 1,000 ML IV SCH (11:52)
[2020-11-04 12:03] LABS: T4, Free (Free Thyroxine) 1.29 ng/dL (0.78-2.19)
--- NOTE | 2020-11-04 14:05 | P.PN ---
Subjective Progress Note Date: 11/04/20 Principal diagnosis: Abnormal chest x-ray/CAT scan. Pulmonary and critical care consultation dated 11/04/2020. 62-year-old male, seen in room 615, who was admitted with a diagnosis of hemoptysis and chronic cough. Apparently both started about 3 or 4 days ago. Some of blood is pink and frothy, and some of the blood is more dark. The patient has been followed by my partner for a number of months and years, for some abnormal pulmonary nodules. The most recent computed tomography scan showed that the nodules compared to a prior computed tomography scan, had IC gone smaller in size. This is a 2019 computed tomography scan compared to one done in 2017. Unfortunately, the patient has been smoking for 40 years or so. He continues to smoke. The most recent chest x-ray and CAT scan show a large right perihilar mass. I talked to the patient about possibly going home on following up with Dr. Miller or having a bronchoscopy here while he was hospitalized. He agrees to the latter. Anyway, we'll get him scheduled for the [place] and biopsy tomorrow. We'll have pathology in the room to look at the specimens as we obtain them. Looking at the CAT scan, the patient has a large right perihilar mass. Probably, we can do some transtracheal and transbronchial biopsies anteriorly into the mass. White count 6.7, hemoglobin 11.5, hematocrit 35.2, platelet count 464,000. Sodium 132, potassium 4, chlorides 105, CO2 19, anion gap 8, BUN 9, creatinine 0.66. Chest x-ray and CAT scan of both reviewed. Progress note dated 11/04/2020. Patient seen yesterday in consultation. The date on the consult is wrong. He was actually seen on November 03. The patient wishes to be discharged, so he can go down to [place], and tend to his recent mother's and her issues. 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 I would recommend antibiotics in the form of Augmentin or something similar, for 6 weeks at least. A follow-up chest x-ray can be done after that. In addition, the patient should have an outpatient PET scan. The patient is advised to stop smoking. Unfortunately, he may not have insurance and so follow-up with patient will be difficult as would be the PET scan. Labs today include a sodium 137, potassium 3, chlorides 103, CO2 26, anion gap 8, BUN 15, creatinine 0.81. TSH is 0.340. Free T4 is 1.29. Currently, the patient's on vancomycin and Unasyn. He is being followed by infectious diseases. Objective - Vital Signs Vital signs: Vital Signs Temp 98.7 F 11/04/20 08:00 Pulse 122 H 11/04/20 08:00 Resp 18 11/04/20 08:00 BP 110/65 11/04/20 08:00 Pulse Ox 92 L 11/04/20 08:00 Intake & Output 11/03/20 11/04/20 11/04/20 18:59 06:59 18:59 Other: # Voids 2 2 - Exam No acute distress, oriented 3. Room air saturation 96%. HEENT examination is grossly unremarkable. Neck supple. Full range of motion. No adenopathy thyromegaly or neck vein distention. Cardiovascular examination reveals regular rhythm rate. S1-S2 normal. No S3 or S4. No discernible murmur noted. Heart rate about 88 bpm. Lungs reveal scattered bilateral rhonchi. No wheezes or crackles. Breath sounds are equal bilaterally. Abdomen soft bowel sounds are heard. No masses or tenderness. Abdomen mildly distended. Extremities are intact. No cyanosis clubbing or edema. Skin is without rash or lesion. Neurologic examination is brief but nonfocal. - Labs CBC & Chem 7: 11/03/20 06:45 11/04/20 09:51 Labs: Abnormal Lab Results - Last 24 Hours (Table) 11/03/20 11/04/20 11/04/20 Range/Units 06:45 09:51 09:51 Potassium 3.3 L 3.0 L (3.5-5.5) mmol/L Anion Gap 13.90 H (4.00-12.00) mmol/L BUN/Creatinine Ratio 23.33 H (12.00-20.00) Ratio Glucose 160 H 176 H (70-110) mg/dL Calcium 8.0 L 8.1 L (8.7-10.3) mg/dL C-Reactive Protein 38.0 H (<1.0) mg/dL TSH 0.340 L (0.465-4.680) mIU/L Microbiology - Last 24 Hours (Table) 11/03/20 16:00 Gram Stain - Preliminary Sputum Sputum Culture - Preliminary 11/02/20 17:00 Blood Culture - Preliminary Blood No Growth after 24 hours Assessment and Plan Assessment: Nausea, with vomiting, and probable dehydration, which may relate to a GI viral infection/gastroenteritis. History of ongoing tobacco use with nicotine addiction. Abnormal chest x-ray dating all the way back to 2018, initially with an i nfiltrate in the left lung, now with a cavitary lesion and an air-fluid level. This may relate to underlying cavitary cancer and/or anaerobic lung abscess. Status post bronchoscopy with BAL, with negative results, 2018. Plan: Plan dated 11/03/2020. We talked to the patient about his situation. Currently, his nausea and vomiting are improved. He feels like his stomach is getting back to normal. He denies all pulmonary complaints including shortness of breath, cough, wheezing, chest tightness, phlegm production, and hemoptysis, etc. He tells us that he needs to make a trip down the [place], his mother apparently recently passed. I told him that I would see him in the outpatient setting. He would need an outpatient PET scan, and is discharged, she go home on a long course of oral antibiotic, such as Augmentin. 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 We will continue to follow make recommendations where appropriate. Plan dated 11/04/2020. The patient may have some issues as it relates to lack of insurance. He may or may not be able to afford oral medications once discharged. Currently he is on Unasyn. The patient will need an outpatient PET scan. Additional recommendations and suggestions are forthcoming. A repeat chest x-ray should be done down the road, once the patient has an adequate trial of antibiotics. A diagnosis may be accelerated if his PET scan is positive. Time with Patient: Less than 30
--- NOTE | 2020-11-04 14:34 | PN ---
PROGRESS NOTE DATE OF SERVICE: 11/04/2020 REASON FOR FOLLOWUP: Aspiration pneumonia. INTERVAL HISTORY: Patient is afebrile. The patient is . However, the patient did have a fever of 101 last night. The patient denies any chest pain. He did have a cough and bringing up some sputum. No hemoptysis. No vomiting. No abdominal pain. No diarrhea. EXAMINATION: Blood pressure 110/55. Pulse 122. Temperature 98.7. He is 92% on 3 L nasal cannula. General description is a middle-aged male up in the room in no distress. Respiratory system: Unlabored breathing, decreased intensity of breath sounds. No wheeze. Heart S1, S2. Regular rate and rhythm. Abdomen soft, no tenderness. LABS: BUN of 15, creatinine 0.81. Blood culture so far negative. Sputum is pending. DIAGNOSTIC IMPRESSION AND PLAN: Patient with left lung cavitary pneumonia with air fluid level concern for possible abscess or postobstructive pneumonia. May benefit from bronchoscopy and deep cultures. The patient is currently covered with Unasyn and vancomycin to continue while waiting for the culture to finalize and monitor clinical course closely. MMODL / IJN: [id number] /
[2020-11-04] MEDS: ONDANSETRON 4 MG/2 ML VIAL IVP PRN (16:50)
[2020-11-04] MEDS: PANTOPRAZOLE 40 MG TABLET PO SCH (20:39)
[2020-11-05] MEDS: AMPICILLIN-SULBACTAM 3 GM in SODIUM CHLORIDE 0.9% 100 ML IVPB SCH ×5 (00:34→23:56)
[2020-11-05] MEDS ORDERED: VANCOMYCIN TROUGH DUE 1 EACH MISC MISCELLANE ONE (06:00)
[2020-11-05] MEDS: 0.9% NACL WITH KCL 20 MEQ/L 1,000 ML IV SCH ×2 (06:08→23:56)
[2020-11-05 07:02] LABS: African American GFR (CKD) >90 (>60 ml/min/1.73 sqM); Non-African American GFR(CKD) >90 (>60 ml/min/1.73 sqM); Potassium 3.5 mmol/L (3.5-5.1)
[2020-11-05] MEDS: ENOXAPARIN 40 MG/0.4 ML SYRINGE SQ SCH (08:31)
[2020-11-05] MEDS: METOPROLOL TARTRATE 25 MG TAB PO SCH (08:32)
[2020-11-05] MEDS: guaiFENesin 600 MG TABLET.ER PO SCH ×2 (08:32→21:10)
[2020-11-05] MEDS: PANTOPRAZOLE 40 MG TABLET PO SCH ×2 (08:32→21:09)
[2020-11-05] MEDS: VANCOMYCIN 1,500 MG in SODIUM CHLORIDE 0.9% 250 ML IVPB SCH (08:32)
[2020-11-05] MEDS ORDERED: POTASSIUM CHLORIDE ER 20 MEQ TAB.ER PO STA (09:41)
--- NOTE | 2020-11-05 10:11 | P.PN ---
Subjective Progress Note Date: 11/05/20 Principal diagnosis: Abnormal chest x-ray/CAT scan. Pulmonary and critical care consultation dated 11/04/2020. 62-year-old male, seen in room 615, who was admitted with a diagnosis of hemoptysis and chronic cough. Apparently both started about 3 or 4 days ago. Some of blood is pink and frothy, and some of the blood is more dark. The patient has been followed by my partner for a number of months and years, for some abnormal pulmonary nodules. The most recent computed tomography scan showed that the nodules compared to a prior computed tomography scan, had IC gone smaller in size. This is a 2019 computed tomography scan compared to one done in 2017. Unfortunately, the patient has been smoking for 40 years or so. He continues to smoke. The most recent chest x-ray and CAT scan show a large right perihilar mass. I talked to the patient about possibly going home on following up with Dr. Miller or having a bronchoscopy here while he was hospitalized. He agrees to the latter. Anyway, we'll get him scheduled for the [place] and biopsy tomorrow. We'll have pathology in the room to look at the specimens as we obtain them. Looking at the CAT scan, the patient has a large right perihilar mass. Probably, we can do some transtracheal and transbronchial biopsies anteriorly into the mass. White count 6.7, hemoglobin 11.5, hematocrit 35.2, platelet count 464,000. Sodium 132, potassium 4, chlorides 105, CO2 19, anion gap 8, BUN 9, creatinine 0.66. Chest x-ray and CAT scan of both reviewed. Progress note dated 11/04/2020. Patient seen yesterday in consultation. The date on the consult is wrong. He was actually seen on November 03. The patient wishes to be discharged, so he can go down to [place], and tend to his recent mother's and her issues. 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 I would recommend antibiotics in the form of Augmentin or something similar, for 6 weeks at least. A follow-up chest x-ray can be done after that. In addition, the patient should have an outpatient PET scan. The patient is advised to stop smoking. Unfortunately, he may not have insurance and so follow-up with patient will be difficult as would be the PET scan. Labs today include a sodium 137, potassium 3, chlorides 103, CO2 26, anion gap 8, BUN 15, creatinine 0.81. TSH is 0.340. Free T4 is 1.29. Currently, the patient's on vancomycin and Unasyn. He is being followed by infectious diseases. Progress note dated 11/05/2020. 55-year-old male, seen in consultation at couple days ago. The patient was seen in room 485. The patient was admitted with a diagnosis of lung abscess. The patient is coughing up purulent-appearing phlegm. I recommended a long course of antibiotics. Currently he is on Unasyn, as per infectious diseases. More recently, apparently he's been having some issues with arrhythmias, and cardiology was consulted. The patient will need an outpatient PET scan. He is a heavy smoker. He was smoking up until the time of his admission. In addition, apparently his mother just recently and he states that he has to have down to [place] to do with her issues. Potassium is 3.5 today with a creatinine of 0.8. No chest x-ray today. Objective - Vital Signs Vital signs: Vital Signs Temp 98.3 F 11/05/20 08:00 Pulse 109 H 11/05/20 08:00 Resp 16 11/05/20 08:00 BP 116/63 11/05/20 08:00 Pulse Ox 89 L 11/05/20 08:00 Intake & Output 11/04/20 11/05/20 11/05/20 18:59 06:59 18:59 Intake Total 1080 Balance 1080 Intake: Oral 1080 Other: # Voids 3 2 - Exam No acute distress, oriented 3. Room air saturation 93%. HEENT examination is grossly unremarkable. Neck supple. Full range of motion. No adenopathy thyromegaly or neck vein distention. Cardiovascular examination reveals regular rhythm rate. S1-S2 normal. No S3 or S4. No discernible murmur noted. Heart rate about 109 bpm. Lungs reveal scattered bilateral rhonchi. No wheezes or crackles. Breath sounds are equal bilaterally. Abdomen soft bowel sounds are heard. No masses or tenderness. Abdomen mildly distended. Extremities are intact. No cyanosis clubbing or edema. Skin is without rash or lesion. Neurologic examination is brief but nonfocal. - Labs CBC & Chem 7: 11/03/20 06:45 11/05/20 05:14 Labs: Abnormal Lab Results - Last 24 Hours (Table) 11/04/20 11/04/20 11/04/20 Range/Units 09:51 09:51 09:51 Potassium 3.0 L (3.5-5.1) mmol/L Glucose 176 H (74-99) mg/dL Calcium 8.1 L (8.4-10.2) mg/dL C-Reactive Protein 38.0 H (<1.0) mg/dL Procalcitonin 0.33 H (0.02-0.09) ng/mL TSH 0.340 L (0.465-4.680) mIU/L Microbiology - Last 24 Hours (Table) 11/02/20 17:00 Blood Culture - Preliminary Blood No Growth after 48 hours 11/03/20 16:00 Gram Stain - Preliminary Sputum Sputum Culture - Preliminary Assessment and Plan Assessment: Nausea, with vomiting, and probable dehydration, which may relate to a GI viral infection/gastroenteritis. History of ongoing tobacco use with nicotine addiction. Abnormal chest x-ray dating all the way back to 2018, initially with an infiltrate in the left lung, now with a cavitary lesion and an air-fluid level. This may relate to underlying cavitary cancer and/or anaerobic lung abscess. Status post bronchoscopy with BAL, with negative results, 2018. Recent development of a cardiac arrhythmia, currently being evaluated by cardiology services. Plan: Plan dated 11/03/2020. We talked to the patient about his situation. Currently, his nausea and vomiting are improved. He feels like his stomach is getting back to normal. He denies all pulmonary complaints including shortness of breath, cough, wheezing, chest tightness, phlegm production, and hemoptysis, etc. He tells us that he needs to make a trip down the [place], his mother apparently recently passed. I told him that I would see him in the outpatient setting. He would need an outpatient PET scan, and is discharged, she go home on a long course of oral antibiotic, such as Augmentin. 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 We will continue to follow make recommendations where appropriate. Plan dated 11/04/2020. The patient may have some issues as it relates to lack of insurance. He may or may not be able to afford oral medications once discharged. Currently he is on Unasyn. The patient will need an outpatient PET scan. Additional recommenda tions and suggestions are forthcoming. A repeat chest x-ray should be done down the road, once the patient has an adequate trial of antibiotics. A diagnosis may be accelerated if his PET scan is positive. Plan dated 11/05/2020. The patient is currently being seen by cardiology for some arrhythmia. The patient currently remains on vancomycin and Unasyn as per infectious diseases. The pulmonary standpoint, the patient is stable. Room air saturations are in the mid 90s. The patient will need an outpatient PET scan. He probably should be discharged home on Augmentin. GI issues have resolved. The lesion in his left lung may be cavitating anaerobic lung abscess, and/or a cavitating cancer. Follow-up is important. Additional recommendations and suggestions where appropriate. Time with Patient: Less than 30
[2020-11-05 11:21] LABS: HCT 33.4 % (39.6-50.0); HGB 9.9 g/dL (13.0-17.0); MCH 25.2 pg (27.0-32.0); MCHC 29.6 g/dL (32.0-37.0); Mean Platelet Volume 10.2 fL (9.5-12.2); Platelet Count 527 X 10*3/uL (140-440); RBC 3.93 X 10*6/uL (4.40-5.60); RDW 17.1 % (11.5-14.5); WBC 16.81 X 10*3/uL (4.50-10.00)
--- NOTE | 2020-11-05 13:25 | P.CRDCN ---
History of Present Illness Consult date: 11/05/20 History of present illness: HISTORY OF PRESENT ILLNESS: This is a 55-year-old male with a past medical history significant for nicotine dependence and abnormal CXR. Patient also reports a history of a "fast heart rate". Patient does not follow with a outside deliverer. We have been asked to see the patient in consultation for runs of Vta. Patient examined at the bedside. Patient states he was unable to eat or drink anything for 3-4 days. Patient states he had no appetite and when he drank liquids he would throw them up. He states prior to that he was feeling well with no issues. Patient denies fever or chills. He reports a productive cough with sputum production. Patient denies chest pain or pressure. He denies shortness of breath at the time of examination. Patient denies feeling his heart racing. He reports he is a current smoker and also uses marijuana. Patient denies family history of CAD. EKG reveals sinus tachycardia with PVCs Chest xray advanced bullous emphysema. Worsening consolidation on the left now extending up into the left upper lung suggesting pneumonia. Progressive cavitary change in the left midlung now with air-fluid level. Correlate for cavitary pneumonia or cavitary neoplasm with superinfection. Laboratory data: WBC 16.81. Hemoglobin 9.9. Platelet count 527. Sodium 137. Potassium 3.0. Repeat 3.5. Troponin negative 1. Current home cardiac medications include none There is no previous echocardiogram available for review REVIEW OF SYSTEMS: At the time of my exam: CONSTITUTIONAL: Denies fever or chills. HEENT: Denies blurred vision, vision changes, or eye pain. Denies hemoptysis CARDIOVASCULAR: Denies chest pain. Denies orthopnea. Denies PND. Denies palpitat ions RESPIRATORY: Denies shortness of breath. GASTROINTESTINAL: Denies abdominal pain. Denies nausea or vomiting. HEMATOLOGIC: Denies bleeding disorders. GENITOURINARY: Denies any blood in urine. SKIN: Denies pruitis. Denies rash. PHYSICAL EXAM: VITAL SIGNS: Reviewed. GENERAL: Well-developed in no acute distress. HEENT: Head is normocephalic. Pupils are equal, round. Sclerae anicteric. Mucous membranes of the mouth are moist. Neck supple. No JVD or thyromegaly LUNGS: Respirations even and unlabored. Lungs diminished with bilateral rhonchi. Coughing noted during examination. HEART: Regular rate and rhythm. S1 and S2 heard. ABDOMEN: Soft. Nondistended. Nontender. EXTREMITIES: Normal range of motion. No clubbing or cyanosis. Peripheral pulses intact. No lower extremity edema NEUROLOGIC: Awake and alert. Oriented x 3. ASSESSMENT: Pneumonia/lung abscess Nonsustained ventricular tachycardia Hypokalemia Ongoing nicotine dependence History of bronchoscopy with BAL, 2018, negative for malignancy PLAN: Obtain 2-D echo to assess cardiac structure and function Continue telemetry monitoring Replace potassium Check magnesium level Continue metoprolol 25 mg twice a day Further recommendations pending patient's course Nurse practitioner note has been reviewed by physician. Signing provider agrees with the documented findings, assessment, and plan of care. Past Medical History Past Medical History: No Reported History History of Any Multi-Drug Resistant Organisms: None Reported Past Surgical History: Tonsillectomy Past Anesthesia/Blood Transfusion Reactions: No Reported Reaction Past Psychological History: No Psychological Hx Reported Smoking Status: Current some day smoker Past Alcohol Use History: Occasional Past Drug Use History: Marijuana - Past Family History Mother Additional Family Medical History / Comment(s): none Father Additional Family Medical History / Comment(s): at 73 years due to complications from a goiter removal Medications and Allergies Home Medications Medication Instructions Recorded Confirmed Type Ibuprofen [Motrin Ib] 600 mg PO ONCE PRN 02/21/19 11/02/20 History Ondansetron Odt [Zofran Odt] 4 mg PO Q8HR PRN #10 tab 10/31/20 11/02/20 Rx Amoxic-Pot Clav 875-125Mg 1 tab PO Q12HR 28 Days #56 tab 11/05/20 Rx [Augmentin 875-125] Allergies Allergy/AdvReac Type Severity Reaction Status Date / Time No Known Allergies Allergy Verified 11/02/20 19:02 Physical Exam Vitals: Vital Signs Temp Pulse Resp BP Pulse Ox 11/05/20 08:00 98.3 F 109 H 16 116/63 89 L 11/05/20 02:00 99.7 F H 114 H 18 122/70 93 L 11/04/20 19:01 99.0 F 116 H 16 159/66 94 L 11/04/20 19:00 116 H 11/04/20 14:00 99.9 F H 113 H 18 119/75 92 L Intake and Output 11/04/20 11/05/20 11/05/20 22:59 06:59 14:59 Intake Total 1080 Balance 1080 Intake: Oral 1080 Other: # Voids 3 2 Results 11/05/20 05:15 11/05/20 05:14 Cardiac Enzymes 11/05/20 Range/Units 06:16 Troponin I <0.012 (0.000-0.034) ng/mL CBC 11/05/20 Range/Units 05:15 WBC 16.81 H (4.50-10.00) X 10*3/uL RBC 3.93 L (4.40-5.60) X 10*6/uL Hgb 9.9 L (13.0-17.0) g/dL Hct 33.4 L (39.6-50.0) % Plt Count 527 H (140-440) X 10*3/uL Comprehensive Metabolic Panel 11/05/20 Range/Units 05:14 Potassium 3.5 (3.5-5.1) mmol/L Creatinine 0.80 (0.66-1.25) mg/dL Current Medications Generic Name Dose Route Start Last Admin Trade Name Freq PRN Reason Stop Dose Admin Acetaminophen 650 mg 11/02/20 18:21 Acetaminophen Tab 325 Mg Tab PO Q6HR PRN Mild Pain or Fever > 100.5 Enoxaparin Sodium 40 mg 11/04/20 09:00 11/05/20 08:31 Enoxaparin 40 Mg/0.4 Ml Syringe SQ Not Given DAILY ALTHEA Guaifenesin 600 mg 11/03/20 21:00 11/05/20 08:32 Guaifenesin 600 Mg Tablet.Er PO Not Given Q12HR ALTHEA Vancomycin HCl 1,500 mg/ 250 mls @ 125 mls/hr 11/03/20 23:00 11/05/20 08:32 Sodium Chloride IVPB 125 mls/hr Q8H ALTHEA Administration Ampicillin Sodium/Sulbactam 100 mls @ 200 mls/hr 11/04/20 00:00 11/05/20 05:54 Sodium 3 gm/ Sodium Chloride IVPB 200 mls/hr Q6HR ALTHEA Administration Potassium Chloride/Sodium Chloride 1,000 mls @ 75 mls/hr 11/04/20 11:11 11/05/20 06:08 Ns-Kcl 20 Meq/L Iv Solution IV 75 mls/hr .[id number] ALTHEA Administration Metoprolol Tartrate 25 mg 11/04/20 11:15 11/05/20 08:32 Metoprolol Tartrate 25 Mg Tab PO 25 mg BID ALTHEA Administration Naloxone HCl 0.2 mg 11/02/20 18:21 Naloxone 0.4 Mg/Ml 1 Ml Vial IV Q2M PRN Opioid Reversal Ondansetron HCl 4 mg 11/02/20 18:21 11/04/20 16:50 Ondansetron 4 Mg/2 Ml Vial IVP 4 mg Q8HR PRN Administration Nausea And Vomiting Pantoprazole Sodium 40 mg 11/04/20 21:00 11/05/20 08:32 Pantoprazole 40 Mg Tablet PO 40 mg BID ALTHEA Administration Tramadol HCl 50 mg 11/03/20 10:17 Tramadol 50 Mg Tab PO QID PRN Pain/Discomfort Intake and Output 11/04/20 11/05/20 11/05/20 22:59 06:59 14:59 Intake Total 1080 Balance 1080 Intake: Oral 1080 Other: # Voids 3 2 11/05/20 05:15 11/05/20 05:14
[2020-11-05 14:10] LABS: African American GFR (CKD) 111.8 (60.0-200.0); Anion Gap 14.7 mmol/L (4.00-12.00); BUN/Creat Ratio 11.11 Ratio (12.00-20.00); Calcium 8.3 mg/dL (8.7-10.3); Carbon Dioxide 28.3 mmol/L (21.6-31.8); Non-African American GFR(CKD) 96.5 (60.0-200.0); Potassium 3.4 mmol/L (3.5-5.5)
--- NOTE | 2020-11-05 14:31 | ECHOF ---
Referral Reason:non sustained V. Tach MEASUREMENTS -------- HEIGHT: 185.4 cm WEIGHT: 95.3 kg BP: 110/65 RVIDd: 3.6 cm (< 3.3) IVSd: 1.3 cm (0.6 - 1.1) LVIDd: 4.7 cm (3.9 - 5.3) LVPWd: 1.5 cm (0.6 - 1.1) IVSs: 1.7 cm LVIDs: 3.1 cm LVPWs: 2.0 cm LAESV Index (A-L): 20.35 ml/m Ao Diam: 3.2 cm (2.0 - 3.7) AV Cusp: 2.4 cm (1.5 - 2.6) MV EXCURSION: 14.924 mm (> 18.000) MV EF SLOPE: 55 mm/s (70 - 150) EPSS: 0.7 cm MV E Tirso: 1.00 m/s MV DecT: 159 ms MV A Tirso: 0.94 m/s MV E/A Ratio: 1.07 RAP: 5.00 mmHg RVSP: 35.40 mmHg FINDINGS -------- Resting tachycardia (HR>100bpm). This was a technically adequate study. The left ventricular size is normal. There is mild concentric left ventricular hypertrophy. Overa ll left ventricular systolic function is normal with, an EF between 55 - 60 %. The diastolic fillin g pattern is normal for the age of the patient 8.90. The right ventricle is mildly enlarged. Normal LA size by volume 22+/-6 ml/m2. The right atrial size is normal. Interatrial and interventricular septum intact. There is no evidence of aortic regurgitation. There is no evidence of aortic stenosis. No mitral regurgitation. Mild tricuspid regurgitation present. There is mild pulmonary hypertension. The right ventricular systolic pressure, as measured by Doppler, is 35.40mmHg. There is no pulmonic regurgitation present. The aortic root size is normal. IVC Not well visulized. There is no pericardial effusion. CONCLUSIONS -------- 1. The left ventricular size is normal. 2. There is mild concentric left ventricular hypertrophy. 3. Overall left ventricular systolic function is normal with, an EF between 55 - 60 %. 4. The diastolic filling pattern is normal for the age of the patient 8.90 5. The right ventricle is mildly enlarged. 6. No mitral regurgitation. 7. Mild tricuspid regurgitation present. 8. There is mild pulmonary hypertension. 9. The right ventricular systolic pressure, as measured by Doppler, is 35.40mmHg. [employer] OFFICER: Bel Burroughs RDCS
--- NOTE | 2020-11-05 14:41 | P.PN ---
Subjective Progress Note Date: 11/05/20 Patient is a pleasant 55-year-old male came in with comments of nausea vomiting diarrhea patient is found to have fever and that is also found to have leukocytosis with white blood cell count of 22,000. Patient had high-grade fever with temperature of 101, patient was also comparing of cough with sputum p roduction. Patient the had a history of cavitary lesion which was diagnosed in 2019. Patient can use to have this cavitary lesion which is bit worse along with some pneumonia around the lesion. Patient was a valid by pulmonology the recommending a follow-up PET scan as an outpatient. UA is not significant for any infection patient doesn't have any symptoms of urinary tract infection. Patient is bit tachycardic with heart rate of 125 which is sinus tachycardia with occasional PVCs. We will obtain a TSH, and a normal patient was started on beta marge. 11/05/2020 Patient is evaluated today he is sitting up in the chair. Patient denies any chest pain, shortness of breath. He reports a cough. States that he has some sputum production but it is improving. Patient continues on IV Vanco, IV unasyn via infectious disease for a cavitary lesion that is chronic in nature. Patient was evaluated by pulmonary services who is recommending a Bronch, PET scan, repeat chest x-ray outpatient after he continues a course of oral Augmentin for 6 weeks. Throughout the night and morning patient continues to have periodic runs of V. tach, up to 12 beats. Cardiology is checking electrolytes, continuing on metoprolol. Echocardiogram revealed an ejection fraction of 55- 60%, mild tricuspid regurg, mild pulmonary hypertension. Patient denies any abdominal pain, nausea, vomiting states he is ambulating without difficulty. Patient states that he has quit smoking at this time. Patient does not follow with a pulmonary physician outpatient. Patient is anxious for discharge because, he needs to travel down to [place]. Vital signs today include a T-max of 99.7, heart rate 109, blood pressure 116/63, patient is a 9% on room air, 94% on 3 L nasal cannula. Patient does not currently wearing nasal cannula oxygen at home. Patient's white blood cell count at 20, repeat today, hemoglobin 10.6, repeat today, recheck potassium, magnesium. ROS: Constitutional: Denied any fatigue denied any fever. Cardio vascular: denied any chest pain, palpitations Gastrointestinal denied any nausea vomiting Pulmonary: Denied any shortness of breath cough Neurologic denied any new focal deficits All inpatient medications were reviewed and appropriate changes in these medications as dictated in the interval history and assessment and plan. PHYSICAL EXAMINATION: GENERAL: The patient is alert and oriented x3, not in any acute distress. Well developed, well nourished. HEENT: Pupils are round and equally reacting to light. EOMI. No scleral icterus. No conjunctival pallor. Normocephalic, atraumatic. No pharyngeal erythema. No thyromegaly. CARDIOVASCULAR: S1 and S2 present. No murmurs, rubs, or gallops. PULMONARY: Chest is clear to auscultation, no wheezing or crackles. ABDOMEN: Soft, nontender, nondistended, normoactive bowel sounds. No palpable organomegaly. MUSCULOSKELETAL: No joint swelling or deformity. EXTREMITIES: No cyanosis, clubbing, or pedal edema. NEUROLOGICAL: Gross neurological examination did not reveal any focal deficits. SKIN: No rashes. Assessment and plan -Sepsis: Most probably secondary to pneumonia patient does have a cavitary lesion with the pneumonia surrounding it. Patient will be continued on unasyn, ID following, pending finalized cultures -Nausea vomiting secondary to peptic ulcer disease or gastritis from ibuprofen which will be discontinued patient was started on Protonix continue Zofran on as-needed basis -Leukocytosis due to assessment #1, improving, 16.81 today -Asymptomatic bacteriuria -Nicotine use patient is trying to quit and did quit multiple times -Cavitary lesion patient was evaluated for cancer in the past which was negative. -Hypokalemia, replacing -Sick euthyroid syndrome - TSH 0.340, free T4 1.29, repeat TSH on discharge. DVT prophylaxis: Lovenox Patient will continue on all current medications, following closely with pulmonary services, cardiology. Patient is on IV Unasyn, pending finalized cultures. The plan is for patient to be discharged home on a 6 week course of oral Augmentin, patient can follow up outpatient for a PET scan, repeat chest x- ray. Patient will follow-up with pulmonary services. Patient is counseled on the importance of smoking cessation, patient denies any need for nicotine patch at this time. He states that he is not currently smoking. Replace electrolytes per protocol. Patient will mostly be discharged home tomorrow. Objective - Vital Signs Vital signs: Vital Signs Temp 98.3 F 11/05/20 08:00 Pulse 109 H 11/05/20 08:00 Resp 16 11/05/20 08:00 BP 116/63 11/05/20 08:00 Pulse Ox 89 L 11/05/20 08:00 Intake & Output 11/04/20 11/05/20 11/05/20 18:59 06:59 18:59 Intake Total 1080 Balance 1080 Intake: Oral 1080 Other: # Voids 3 2 - Labs CBC & Chem 7: 11/05/20 05:15 11/05/20 05:15 Labs: Abnormal Lab Results - Last 24 Hours (Table) 11/04/20 11/04/20 Range/Units 09:51 09:51 C-Reactive Protein 38.0 H (<1.0) mg/dL Procalcitonin 0.33 H (0.02-0.09) ng/mL TSH 0.340 L (0.465-4.680) mIU/L Microbiology - Last 24 Hours (Table) 11/02/20 17:00 Blood Culture - Preliminary Blood No Growth after 48 hours 11/03/20 16:00 Gram Stain - Preliminary Sputum Sputum Culture - Preliminary Assessment and Plan Time with Patient: Greater than 30
--- NOTE | 2020-11-05 16:24 | PN ---
PROGRESS NOTE DATE OF SERVICE: 11/05/2020 REASON FOR FOLLOWUP: Cavitating pneumonia, possible aspiration. INTERVAL HISTORY: The patient is afebrile. The patient is breathing comfortably. The patient is currently on room air. Denies any chest pain. Overall, cough has decreased in intensity. No abdominal pain or diarrhea. The patient anxious to go home to attend his mother's . EXAMINATION: His blood pressure is 160/63 with a pulse of 109, temperature 98.3. He is 99% on room air. General description is a middle-aged male up in the room in no distress. Respiratory system: Unlabored breathing, decreased intensity of breath sounds, no wheeze. Heart S1, S2. Regular rate and rhythm. Abdomen soft, no tenderness. LABS: Hemoglobin 11.1, white count 16.1. Creatinine 0.80. Blood culture negative. Sputum is pending. DIAGNOSTIC IMPRESSION AND PLAN: Patient with right upper lobe cavitary pneumonia, possible aspiration etiology. The patient did well on Unasyn. Discontinue vancomycin. Finish therapy with oral Augmentin for at least 4-6 weeks with close outpatient followup. MMODL / IJN: [id number] /
[2020-11-05] MEDS: METOPROLOL TARTRATE 50 MG TAB PO SCH (21:09)
[2020-11-06] MEDS: AMPICILLIN-SULBACTAM 3 GM in SODIUM CHLORIDE 0.9% 100 ML IVPB SCH ×2 (05:58→11:52)
[2020-11-06 06:50] LABS: Potassium 3.3 mmol/L (3.5-5.1)
[2020-11-06] MEDS ORDERED: Potassium Replacement Protocol 1 EACH MISC MISCELLANE PRN (07:15)
[2020-11-06] MEDS ORDERED: POTASSIUM CHLORIDE ER 20 MEQ TAB.ER PO STA (07:15)
[2020-11-06] MEDS: PANTOPRAZOLE 40 MG TABLET PO SCH (07:21)
[2020-11-06] MEDS: METOPROLOL TARTRATE 50 MG TAB PO SCH (07:21)
[2020-11-06] MEDS: 0.9% NACL WITH KCL 20 MEQ/L 1,000 ML IV SCH (08:16)
[2020-11-06] MEDS: ENOXAPARIN 40 MG/0.4 ML SYRINGE SQ SCH (08:17)
[2020-11-06] MEDS: guaiFENesin 600 MG TABLET.ER PO SCH (08:17)
[2020-11-06 08:48] VITALS: BP 94/54; PULSE 102; RESP 18; TEMP 98.8
[2020-11-06 09:22] LABS: African American GFR (CKD) >90 (>60 ml/min/1.73 sqM); Anion Gap 10 mmol/L; Blood Urea Nitrogen 11 mg/dL (9-20); Calcium 8.1 mg/dL (8.4-10.2); Carbon Dioxide 28 mmol/L (22-30); Chloride 100 mmol/L (98-107); Glucose 117 mg/dL (74-99); Non-African American GFR(CKD) >90 (>60 ml/min/1.73 sqM); Sodium 138 mmol/L (137-145)
[2020-11-06 10:37] LABS: African American GFR (CKD) >90 (>60 ml/min/1.73 sqM); Anion Gap 7 mmol/L; Blood Urea Nitrogen 11 mg/dL (9-20); Calcium 8.2 mg/dL (8.4-10.2); Carbon Dioxide 30 mmol/L (22-30); Chloride 99 mmol/L (98-107); Glucose 146 mg/dL (74-99); Non-African American GFR(CKD) >90 (>60 ml/min/1.73 sqM); Potassium 3.5 mmol/L (3.5-5.1); Sodium 136 mmol/L (137-145)
--- NOTE | 2020-11-06 11:08 | P.PN ---
Subjective Progress Note Date: 11/06/20 Principal diagnosis: Abnormal chest x-ray/CAT scan. Pulmonary and critical care consultation dated 11/04/2020. 62-year-old male, seen in room 615, who was admitted with a diagnosis of hemoptysis and chronic cough. Apparently both started about 3 or 4 days ago. Some of blood is pink and frothy, and some of the blood is more dark. The patient has been followed by my partner for a number of months and years, for some abnormal pulmonary nodules. The most recent computed tomography scan showed that the nodules compared to a prior computed tomography scan, had IC gone smaller in size. This is a 2019 computed tomography scan compared to one done in 2017. Unfortunately, the patient has been smoking for 40 years or so. He continues to smoke. The most recent chest x-ray and CAT scan show a large right perihilar mass. I talked to the patient about possibly going home on following up with Dr. Miller or having a bronchoscopy here while he was hospitalized. He agrees to the latter. Anyway, we'll get him scheduled for the [place] and biopsy tomorrow. We'll have pathology in the room to look at the specimens as we obtain them. Looking at the CAT scan, the patient has a large right perihilar mass. Probably, we can do some transtracheal and transbronchial biopsies anteriorly into the mass. White count 6.7, hemoglobin 11.5, hematocrit 35.2, platelet count 464,000. Sodium 132, potassium 4, chlorides 105, CO2 19, anion gap 8, BUN 9, creatinine 0.66. Chest x-ray and CAT scan of both reviewed. Progress note dated 11/04/2020. Patient seen yesterday in consultation. The date on the consult is wrong. He was actually seen on November 03. The patient wishes to be discharged, so he can go down to [place], and tend to his recent mother's and her issues. 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 I would recommend antibiotics in the form of Augmentin or something similar, for 6 weeks at least. A follow-up chest x-ray can be done after that. In addition, the patient should have an outpatient PET scan. The patient is advised to stop smoking. Unfortunately, he may not have insurance and so follow-up with patient will be difficult as would be the PET scan. Labs today include a sodium 137, potassium 3, chlorides 103, CO2 26, anion gap 8, BUN 15, creatinine 0.81. TSH is 0.340. Free T4 is 1.29. Currently, the patient's on vancomycin and Unasyn. He is being followed by infectious diseases. Progress note dated 11/05/2020. 55-year-old male, seen in consultation at couple days ago. The patient was seen in room 485. The patient was admitted with a diagnosis of lung abscess. The patient is coughing up purulent-appearing phlegm. I recommended a long course of antibiotics. Currently he is on Unasyn, as per infectious diseases. More recently, apparently he's been having some issues with arrhythmias, and cardiology was consulted. The patient will need an outpatient PET scan. He is a heavy smoker. He was smoking up until the time of his admission. In addition, apparently his mother just recently and he states that he has to have down to [place] to do with her issues. Potassium is 3.5 today with a creatinine of 0.8. No chest x-ray today. Progress note dated 11/06/2020. 55-year-old male seen again in room 485. Infectious disease physician feels that the patient should be discharged on Augmentin for an extended period of time. I agree with that assessment. The patient can follow-up with me in the outpatient setting. He will need an outpatient PET scan and possibly a bronchoscopy. He continues to smoke. Recently his mother , and the patient needs to go down to [place], to do with her estate. He is currently being evaluated by cardiology for some episodes of ventricular tachycardia. He is stable from the pulmonary standpoint. Remains on Unasyn as an inpatient. To day's labs include a sodium 136, potassium 3.5, chlorides 99, CO2 30, anion gap 7, BUN 11, creatinine 0.72. Objective - Vital Signs Vital signs: Vital Signs Temp 98.8 F 11/06/20 08:47 Pulse 102 H 11/06/20 08:47 Resp 18 11/06/20 08:47 BP 94/54 11/06/20 08:47 Pulse Ox 95 11/06/20 08:53 Intake & Output 11/05/20 11/06/20 11/06/20 18:59 06:59 18:59 Other: # Voids 3 1 - Exam No acute distress, oriented 3. Room air saturation 95%. HEENT examination is grossly unremarkable. Neck supple. Full range of motion. No adenopathy thyromegaly or neck vein distention. Cardiovascular examination reveals regular rhythm rate. S1-S2 normal. No S3 or S4. No discernible murmur noted. Heart rate about 100 bpm. Lungs reveal scattered bilateral rhonchi. No wheezes or crackles. Breath sounds are equal bilaterally. Abdomen soft bowel sounds are heard. No masses or tenderness. Abdomen mildly distended. Extremities are intact. No cyanosis clubbing or edema. Skin is without rash or lesion. Neurologic examination is brief but nonfocal. - Labs CBC & Chem 7: 11/05/20 05:15 11/06/20 09:54 Labs: Abnormal Lab Results - Last 24 Hours (Table) 11/05/20 11/05/20 11/06/20 Range/Units 05:15 05:15 05:29 WBC 16.81 H (4.50-10.00) X 10*3/uL RBC 3.93 L (4.40-5.60) X 10*6/uL Hgb 9.9 L (13.0-17.0) g/dL Hct 33.4 L (39.6-50.0) % MCH 25.2 L (27.0-32.0) pg MCHC 29.6 L (32.0-37.0) g/dL RDW 17.1 H (11.5-14.5) % Plt Count 527 H (140-440) X 10*3/uL Sodium (137-145) mmol/L Potassium 3.4 L 3.3 L (3.5-5.5) mmol/L Anion Gap 14.70 H (4.00-12.00) mmol/L BUN/Creatinine Ratio 11.11 L (12.00-20.00) Ratio Glucose 119 H 117 H (70-110) mg/dL Calcium 8.3 L 8.1 L (8.7-10.3) mg/dL 11/06/20 Range/Units 09:54 WBC (4.50-10.00) X 10*3/uL RBC (4.40-5.60) X 10*6/uL Hgb (13.0-17.0) g/dL Hct (39.6-50.0) % MCH (27.0-32.0) pg MCHC (32.0-37.0) g/dL RDW (11.5-14.5) % Plt Count (140-440) X 10*3/uL Sodium 136 L (137-145) mmol/L Potassium (3.5-5.5) mmol/L Anion Gap (4.00-12.00) mmol/L BUN/Creatinine Ratio (12.00-20.00) Ratio Glucose 146 H (70-110) mg/dL Calcium 8.2 L (8.7-10.3) mg/dL Microbiology - Last 24 Hours (Table) 11/02/20 17:00 Blood Culture - Preliminary Blood No Growth after 72 hours Assessment and Plan Assessment: Nausea, with vomiting, and probable dehydration, which may relate to a GI viral infection/gastroenteritis. History of ongoing tobacco use with nicotine addiction. Abnormal chest x-ray dating all the way back to 2018, initially with an infiltrate in the left lung, now with a cavitary lesion and an air-fluid level. This may relate to underlying cavitary cancer and/or anaerobic lung abscess. Status post bronchoscopy with BAL, with negative results, 2018. Recent development of a cardiac arrhythmia, currently being evaluated by cardiology services. Plan: Plan dated 11/03/2020. We talked to the patient about his situation. Currently, his nausea and vomiting are improved. He feels like his stomach is getting back to normal. He denies all pulmonary complaints including shortness of breath, cough, wheezing, chest tightness, phlegm production, and hemoptysis, etc. He tells us that he needs to make a trip down the [place], his mother apparently recently passed. I told him that I would see him in the outpatient setting. He would need an outpatient PET scan, and is discharged, she go home on a long course of oral antibiotic, such as Augmentin. 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 We will continue to follow make recommendations where appropriate. Plan dated 11/04/2020. The patient may have some issues as it relates to lack of insurance. He may or may not be able to afford oral medications once discharged. Currently he is on Unasyn. The patient will need an outpatient PET scan. Additional recommendations and suggestions are forthcoming. A repeat chest x-ray should be done down the road, once the patient has an adequate trial of antibiotics. A diagnosis may be accelerated if his PET scan is positive. Plan dated 11/05/2020. The patient is currently being seen by cardiology for some arrhythmia. The patient currently remains on vancomycin and Unasyn as per infectious diseases. The pulmonary standpoint, the patient is stable. Room air saturations are in the mid 90s. The patient will need an outpatient PET scan. He probably should be discharged home on Augmentin. GI issues have resolved. The lesion in his left lung may be cavitating anaerobic lung abscess, and/or a cavitating cancer. Follow-up is important. Additional recommendations and suggestions where appropriate. Plan dated 11/06/2020. From the pulmonary perspective, the patient could be discharged on Augmentin 875 twice a day, for prolonged period of time, maybe up to 6 weeks or so or maybe longer. The patient should have follow-up chest x-rays to notice whether or not the area of abnormality in the left lung is improving. The patient may also benefit from an outpatient PET scan, although insurance issues may preclude them. The patient is going to be heading down the [place], as his mother just recently passed, and he has to deal with her estate. He is counseled about the importance of smoking cessation. Prognosis is guarded. Time with Patient: Less than 30
[2020-11-06 12:54] LABS: Hypochromasia Marked; MCH 25.7 pg (25.0-35.0); MCHC 29.6 g/dL (31.0-37.0); MCV 86.9 fL (80.0-100.0); Mean Platelet Volume 8.6; Platelet Count 508 k/uL (150-450); RDW 15.4 % (11.5-15.5); WBC 13.4 k/uL (3.8-10.6)
[2020-11-06 13:00] LABS: HGB 9.8 gm/dL (13.0-17.5)
--- NOTE | 2020-11-06 13:40 | P.PN ---
Subjective Progress Note Date: 11/06/20 HISTORY OF PRESENT ILLNESS: This is a 55-year-old male with a past medical history significant for nicotine dependence and abnormal CXR. Patient also reports a history of a "fast heart rate". Patient does not follow with a lens examiner. We have been asked to see the patient in consultation for runs of Vtach. Patient examined at the bedside. Patient states he was unable to eat or drink anything for 3-4 days. Patient states he had no appetite and when he drank liquids he would throw them up. He states prior to that he was feeling well with no issues. Patient denies fever or chills. He reports a productive cough with sputum production. Patient denies chest pain or pressure. He denies shortness of breath at the time of examination. Patient denies feeling his heart racing. He reports he is a current smoker and also uses marijuana. Patient denies family history of CAD. EKG reveals sinus tachycardia with PVCs Chest xray advanced bullous emphysema. Worsening consolidation on the left now extending up into the left upper lung suggesting pneumonia. Progressive cavitary change in the left midlung now with air-fluid level. Correlate for cavitary pneumonia or cavitary neoplasm with superinfection. Laboratory data: WBC 16.81. Hemoglobin 9.9. Platelet count 527. Sodium 137. Potassium 3.0. Repeat 3.5. Troponin negative 1. Current home cardiac medications include none There is no previous echocardiogram available for review 11/06/2020 Patient examined at the bedside. Patient continues to have runs of nonsustained ventricular tachycardia. He is asymptomatic. Potassium this morning 3.3. Patient is receiving potassium supplementation. Magnesium 2.0. Echo cardiogram completed revealing ejection fraction 55-60%. Mild tricuspid regurgitation. Mild pulmonary hypertension. Patient's metoprolol was increased last night to 50 mg twice a day. PHYSICAL EXAM: VITAL SIGNS: Reviewed. GENERAL: Well-developed in no acute distress. HEENT: Head is normocephalic. Pupils are equal, round. Sclerae anicteric. Mucous membranes of the mouth are moist. Neck supple. No JVD or thyromegaly LUNGS: Respirations even and unlabored. Lungs diminished with bilateral rhonchi. HEART: Regular rate and rhythm. S1 and S2 heard. ABDOMEN: Soft. Nondistended. Nontender. EXTREMITIES: Normal range of motion. No clubbing or cyanosis. Peripheral pulses intact. No lower extremity edema NEUROLOGIC: Awake and alert. Oriented x 3. ASSESSMENT: Pneumonia/lung abscess Nonsustained ventricular tachycardia Hypokalemia Ongoing nicotine dependence History of bronchoscopy with BAL, 2018, negative for malignancy PLAN: Continue telemetry monitoring Replace potassium Continue metoprolol 50 mg twice a day Further recommendations pending patient's course The patient is adamant about being discharged home today and was possibly going to leave AMA. We will clear patient for discharge from a cardiac standpoint. He is to follow up on an outpatient basis Nurse practitioner note has been reviewed by physician. Signing provider agrees with the documented findings, assessment, and plan of care. Objective - Vital Signs Vital signs: Vital Signs Temp 98.8 F 11/06/20 08:47 Pulse 102 H 11/06/20 08:47 Resp 18 11/06/20 08:47 BP 94/54 11/06/20 08:47 Pulse Ox 95 11/06/20 08:53 Intake & Output 11/05/20 11/06/20 11/06/20 18:59 06:59 18:59 Other: # Voids 3 1 - Labs CBC & Chem 7: 11/06/20 05:29 11/06/20 09:54 Labs: Abnormal Lab Results - Last 24 Hours (Table) 11/05/20 11/06/20 11/06/20 Range/Units 05:15 05:29 09:54 Sodium 136 L (137-145) mmol/L Potassium 3.4 L 3.3 L (3.5-5.5) mmol/L Anion Gap 14.70 H (4.00-12.00) mmol/L BUN/Creatinine Ratio 11.11 L (12.00-20.00) Ratio Glucose 119 H 117 H 146 H (70-110) mg/dL Calcium 8.3 L 8.1 L 8.2 L (8.7-10.3) mg/dL Microbiology - Last 24 Hours (Table) 11/02/20 17:00 Blood Culture - Preliminary Blood No Growth after 72 hours
--- NOTE | 2020-11-06 14:59 | P.DS ---
Providers Date of admission: 11/02/20 18:21 Attending physician: Mira Olguin Consults: 11/02/20 18:22 Consult Physician Urgent Consulting Provider: Michael Donaldson Consult Reason/Comments: acute cap, cavitary lesion left lung Do you want consulting provider notified?: Yes 11/03/20 10:15 Consult Physician Routine Consulting Provider: Elroy Alejandro Consult Reason/Comments: Cavitory pneumonia Do you want consulting provider notified?: Yes 11/05/20 05:22 Consult Physician Urgent Consulting Provider: Bo Campbell Consult Reason/Comments: Runs of VTach Do you want consulting provider notified?: Yes Primary care physician: Luis Gillette Hospital Course: Final diagnoses -Sepsis: Most probably secondary to pneumonia patient does have a cavitary lesion with the pneumonia surrounding it. Discharged on oral Augmentin. -Nausea vomiting secondary to peptic ulcer disease or gastritis -Leukocytosis due to assessment #1, improving, 13.4 -Asymptomatic bacteriuria -Nicotine use patient is trying to quit and did quit multiple times -Cavitary lesion patient was evaluated for cancer in the past which was negative. Patient is recommended for 6 weeks of oral Augmentin therapy with a repeat chest x-ray after. -Hypokalemia, repleted -Sick euthyroid syndrome - TSH 0.340, free T4 1.29, repeat TSH on discharge. DVT prophylaxis: Lovenox Discharge disposition Patient is discharged home with self-care. Patient has to travel to [place] to take care of some family affairs at this time. Patient was cleared by pulmonary services on a six-week course of oral Augmentin. Patient will then have a repea t chest x-ray for reevaluation of a cavitary lesion with pneumonia. Patient will be discharged home on GI prophylaxis, recommend stopping ibuprofen at this time. Please recheck blood work in 3 days. Patient will need to have a TSH level repeated after antibiotic therapy. Please follow-up with PCP, pulmonary services. Hospital course This is a pleasant 55 year old male who presents to the ER with complaints of nausea vomiting diarrhea, febrile, leukocytosis with a white blood cell count 22,000. Patient had high-grade fever, cough with sputum production. Patient has a history of cavitary lesion which was diagnosed in 2019, with pneumonia surrounding lesion. Chest x-ray on admission revealed a progressive cavitary change in the left mid lung, now with an air-fluid level. Correlate for cavitary pneumonia or cavitary neoplasm with superinfection. Chest x-ray also revealed advanced bullous emphysema. Patient has had a bronch in the past for this which at that time ruled out a neoplasm. Sputum sample was resulted as presumptive staph aureus, Judi albicans. We will hoping to monitor patient for one more additional days for cultures to be finalized, however patient stated that he needed to be discharged today. Pulmonary services cleared patient, can follow-up in the office regarding microbiology. UTI revealed an asymptomatic bacteriuria, monitor for symptoms outpatient. Nausea vomiting on admission was probably related to peptic ulcer disease, or gastritis. Patient was recommended to hold ibuprofen, patient was started on Protonix for GI prophylaxis. During this admission as well patient was evaluated by cardiology services for intermittent bursts of ventricular tachycardia. Patient had an echocardiogram which revealed an ejection fraction of 55-60%, mild tricuspid regurgitation, mild pulmonary hypertension. Patients metoprolol was increased to 50 mg twice a day, and we'll discharge home on this with a follow up with cardiology services. Patient was found to be hypokalemic, was replaced and level today is 3.5. Patient was given a prescription for 3 more days of oral potassium replacement. Magnesium, 2.0 With a repeat CBC and BMP in 3 days. Car diac enzymes were negative. Patient has had intermittent temperatures as admission, T-max the last 24 hours reveal a temperature of 100.9, sinus tachycardia 1.2, blood pressure 126/72. Patient has remained on 95% room air. Please see medication reconciliation for a list of current medications. Thank you for allowing us to participate in the care of this patient. Patient Condition at Discharge: Stable Plan - Discharge Summary Discharge Rx Participant: No New Discharge Prescriptions: New Amoxic-Pot Clav 875-125Mg [Augmentin 875-125] 1 tab PO Q12HR 28 Days #56 tab Metoprolol Tartrate [Lopressor] 50 mg PO BID #100 tab guaiFENesin [Mucinex] 600 mg PO Q12HR tablet.er Pantoprazole [Protonix] 40 mg PO DAILY #30 tablet. Potassium Chloride ER [K-Dur 20] 20 meq PO BID #6 tab Continue Ibuprofen [Motrin Ib] 600 mg PO ONCE PRN PRN Reason: Pain Ondansetron Odt [Zofran ODT] 4 mg PO Q8HR PRN #10 tab PRN Reason: Nausea Discharge Medication List Ibuprofen [Motrin Ib] 600 mg PO ONCE PRN 02/21/19 [History] Ondansetron Odt [Zofran ODT] 4 mg PO Q8HR PRN #10 tab 10/31/20 [Rx] Amoxic-Pot Clav 875-125Mg [Augmentin 875-125] 1 tab PO Q12HR 28 Days #56 tab 11/05/20 [Rx] Metoprolol Tartrate [Lopressor] 50 mg PO BID #100 tab 11/06/20 [Rx] Pantoprazole [Protonix] 40 mg PO DAILY #30 tablet.dr 11/06/20 [Rx] Potassium Chloride ER [K-Dur 20] 20 meq PO BID #6 tab 11/06/20 [Rx] guaiFENesin [Mucinex] 600 mg PO Q12HR tablet.er 11/06/20 [Rx] Follow up Appointment(s)/Referral(s): Leta Smith MD [Primary Care Provider] - 11/12/20 9:30 am Hayder Harris DO [STAFF PHYSICIAN] - 1 Week (Office will call you with your appointment.) Michael Donaldson DO [Doctor of Osteopathic Medicine] - 12/11/20 2:00 pm (Repeat chest x-ray, follow-up in the office) Ambulatory/Diagnostic Orders: Basic Metabolic Panel [LAB.AMB] Time Frame: 3 Days, Location: None Selected Complete Blood Count w/diff [LAB.AMB] Time Frame: 3 Days, Location: None Selected XR chest 2V [RAD.AMB] Time Frame: 6 Weeks, Location: None Selected Discharge Disposition: HOME SELF-CARE
--- NOTE | 2020-11-06 15:59 | PN ---
PROGRESS NOTE DATE OF SERVICE: 11/06/2020. REASON FOR FOLLOWUP: Aspiration pneumonia/lung abscess. INTERVAL HISTORY: The patient 100.9 around 3 this morning. The patient has been afebrile. The patient is currently breathing comfortably. The patient mentioned he is feeling better. Denies having any chest pain or shortness of breath. No worsening cough, no abdominal pain or diarrhea. PHYSICAL EXAMINATION: Blood pressure is 194/54 with a pulse of 100, temperature 98.8. He is 94% on room air. General description is a middle-aged male up in the bed in no distress. Respiratory system: Unlabored breathing, decreased intensity in breath sounds. No wheeze. Heart S1, S2. Regular rate and rhythm. Abdomen soft, no tenderness. LABS: BUN of 11, creatinine 0.72. Sputum showing presumptive Staph aureus. DIAGNOSTIC IMPRESSION AND PLAN: Patient with cavitating pneumonia. Sputum showing Staph aureus, sensitivity pending, possibly MSSA as the patient clinically responding to the Unasyn. Has been advised to stay in the hospital and CT because of fever. However, the patient wants to go home. He has to take care of his mom, who recently . I am not sure he will come back afterwards. Advised if any worsening of the respiratory symptoms, or fever, he needs to go back to the nearest hospital and close outpatient followup. MMODL / IJN: [id number] /
== END 2020-11-06 13:23 | disposition home or self-care (01) | DRG 871 ==
LOC: EC 15:16 → 4SSUR 18:21
PROVIDERS: ADMIT Hospitalist; ATTEND Hospitalist
DX: A41.9 Sepsis, unspecified organism (principal); J69.0 Pneumonitis due to inhalation of food and vomit; I47.2 Ventricular tachycardia; N39.0 Urinary tract infection, site not specified; J43.9 Emphysema, unspecified; K29.70 Gastritis, unspecified, without bleeding; E07.81 Sick-euthyroid syndrome; I07.1 Rheumatic tricuspid insufficiency; E86.0 Dehydration; I49.3 Ventricular premature depolarization; E87.6 Hypokalemia; F12.90 Cannabis use, unspecified, uncomplicated; F17.210 Nicotine dependence, cigarettes, uncomplicated; Z71.6 Tobacco abuse counseling; I27.20 Pulmonary hypertension, unspecified; Z20.822 Contact with and (suspected) exposure to COVID-19; Z87.01 Personal history of pneumonia (recurrent); Z87.11 Personal history of peptic ulcer disease
CPT/HCPCS: 36415; 71046; 80048; 80053; 80202; 81001; 82308; 82565; 83605; 83735; 84132; 84145; 84439; 84443; 84484; 85025; 85027; 86140; 87040; 87070; 87077; 87186; 87205; 93005; 93306; 94760

== ENCOUNTER 2021-02-17 09:20 | Emergency (ER) | payer OTHER ==
[2021-02-17 09:41] VITALS: RESP 18; TEMP 100.9
[2021-02-17] MEDS ORDERED: ACETAMINOPHEN TAB 500 MG TAB PO STA (10:30)
[2021-02-17] MEDS ORDERED: ONDANSETRON 4 MG/2 ML VIAL IVP STA (10:30)
[2021-02-17] MEDS ORDERED: SODIUM CHLORIDE 0.9% 1,000 ML IV STA (10:30)
[2021-02-17] MEDS ORDERED: KETOROLAC 30 MG/ML 1 ML VIAL IVP STA (10:30)
--- NOTE | 2021-02-17 10:51 | ED ---
Nausea/Vomiting/Diarrhea HPI - General Chief complaint: Nausea/Vomiting/Diarrhea Stated complaint: Fatigue/Nausea/Vomiting Time Seen by Provider: 02/17/21 10:05 Source: patient, RN notes reviewed Mode of arrival: ambulatory Limitations: no limitations - History of Present Illness Initial comments: Patient is a 55 -year-old male presenting to the emergency Department with complaints of nausea, vomiting and fatigue over the last 2 days. Patient states he had some mild nausea about 2 days ago and then yesterday had uncontrollable nausea and vomiting for most the day. He has also been sleeping a lot over the last 2 days which is abnormal for him. He does have a mild cough and some mild congestion but no chest pain or shortness of breath. He did not think he's had a fever although he arrived today with a fever 100.9. He is also tachypneic in the 130s however states he normally has a higher heart rate usually 90-100s. He does not take any medications. Patient denies any abdominal pain. Patient has no further complaints at this time. He has not been vaccinated against covid. - Related Data Previous Rx's Medication Instructions Recorded Azithromycin [Zithromax] 500 mg PO DAILY 5 Days #5 tab 02/17/21 Ondansetron Odt [Zofran Odt] 4 mg PO Q8HR PRN #10 tab 02/17/21 Allergies Allergy/AdvReac Type Severity Reaction Status Date / Time No Known Allergies Allergy Verified 02/17/21 10:31 Review of Systems ROS Statement: Those systems with pertinent positive or pertinent negative responses have been documented in the HPI. ROS Other: All systems not noted in ROS Statement are negative. Past Medical History Past Medical History: No Reported History History of Any Multi-Drug Resistant Organisms: None Reported Date of last positivie culture/infection: 11/03/20 MDRO Source:: Sputum Past Surgical History: Tonsillectomy Past Anesthesia/Blood Transfusion Reactions: No Reported Reaction Past Psychological History: No Psychological Hx Reported Smoking Status: Current some day smoker Past Alcohol Use History: Occasional Past Drug Use History: Marijuana - Past Family History Mother Additional Family Medical History / Comment(s): none Father Additional Family Medical History / Comment(s): at 73 years due to complications from a goiter removal General Exam - General Exam Comments Initial Comments: GENERAL: Patient is well-developed and well-nourished. Patient is nontoxic and in no acute distress. HEAD: Atraumatic, normocephalic. EYES: Pupils equal round and reactive to light, extraocular movements intact, sclera anicteric, conjunctiva are normal. Eyelids were unremarkable. ENT: Oropharynx clear without exudates. Moist mucous membranes. NECK: Normal range of motion, supple without lymphadenopathy or JVD. LUNGS: Unlabored respirations. Breath sounds clear to auscultation bilaterally and equal. No wheezes rales or rhonchi. HEART: Tachycardia rate and rhythm without murmurs, rubs or gallops. ABDOMEN: Soft, nontender, normoactive bowel sounds. No guarding, no rebound. No masses appreciated. MUSCULOSKELETAL: Normal extremities with adequate strength and normal range of motion, no pitting or edema. No clubbing or cyanosis. NEUROLOGICAL: Patient is alert and oriented x 3. SKIN: Warm, Dry, normal turgor, no rashes or lesions noted. Limitations: no limitations Course Vital Signs 02/17/21 02/17/21 09:38 12:37 Temperature 100.9 F H Pulse Rate 135 H 124 H Respiratory 18 18 Rate Blood Pressure 124/75 128/74 O2 Sat by Pulse 98 93 L Oximetry Medical Decision Making - Medical Decision Making Patient is a 55-year-old male here with nausea and vomiting 2 days as well as 2 days of fatigue. He also has some mild upper respiratory symptoms. He did arrive febrile and tachycardia. He states he does have a history of tachycardia, usually 90s to 100s. Patient's labs reveal white count of 28,000 with left shift at 24.3. Rest of labs are within normal limits, urine shows no evidence of infection, rapid: It is negative. Chest x-ray shows right sided pneumonia, bullous emphysematous disease. Patient was given fluids, pain control and Zofran. I also gave him a dose of Zithromax and 1 g of Rocephin. Patient has been resting comfortably. He states he feels improvement. I did recommend admission for pneumonia, possible sepsis. Patient declines admission. I discussed with them the consequences that could arise from a septic pneumonia, he continues to want to leave. Patient will leave AMA. I will continue him on outpatient antibiotic and Zofran for any additional nausea. I strongly recommended following up with his primary care. Strict return parameters were discussed with him and he verbalized understanding. Case discussed with Dr. Pabon. - Lab Data Result diagrams: 02/17/21 10:34 02/17/21 10:34 Lab Results 02/17/21 02/17/21 02/17/21 Range/Units 10:34 10:34 10:34 WBC 28.5 H (3.8-10.6) k/uL RBC 4.94 (4.30-5.90) m/uL Hgb 12.8 L (13.0-17.5) gm/dL Hct 39.1 (39.0-53.0) % MCV 79.1 L (80.0-100.0) fL MCH 25.9 (25.0-35.0) pg MCHC 32.7 (31.0-37.0) g/dL RDW 15.1 (11.5-15.5) % Plt Count 438 (150-450) k/uL MPV 6.8 Neutrophils % 86 % Lymphocytes % 6 % Monocytes % 7 % Eosinophils % 0 % Basophils % 0 % Neutrophils # 24.3 H (1.3-7.7) k/uL Lymphocytes # 1.8 (1.0-4.8) k/uL Monocytes # 1.9 H (0-1.0) k/uL Eosinophils # 0.1 (0-0.7) k/uL Basophils # 0.1 (0-0.2) k/uL Sodium 139 (137-145) mmol/L Potassium 4.0 (3.5-5.1) mmol/L Chloride 101 (98-107) mmol/L Carbon Dioxide 25 (22-30) mmol/L Anion Gap 13 mmol/L BUN 27 H (9-20) mg/dL Creatinine 1.08 (0.66-1.25) mg/dL Est GFR (CKD-EPI)AfAm 89 (>60 ml/min/1.73 sqM) Est GFR (CKD-EPI)NonAf 77 (>60 ml/min/1.73 sqM) Glucose 166 H (74-99) mg/dL Calcium 9.5 (8.4-10.2) mg/dL Total Bilirubin 0.8 (0.2-1.3) mg/dL AST 18 (17-59) U/L ALT 19 (4-49) U/L Alkaline Phosphatase 134 H (38-126) U/L Total Protein 7.4 (6.3-8.2) g/dL Albumin 4.0 (3.5-5.0) g/dL Urine Color Yellow Urine Appearance Cloudy (Clear) Urine pH 5.5 (5.0-8.0) Ur Specific [place] 1.028 (1.001-1.035) Urine Protein 2+ H (Negative) Urine Glucose (UA) Negative (Negative) Urine Ketones Negative (Negative) Urine Blood Moderate H (Negative) Urine Nitrite Negative (Negative) Urine Bilirubin Negative (Negative) Urine Urobilinogen <2.0 (<2.0) mg/dL Ur Leukocyte Esterase Negative (Negative) Urine RBC 2 (0-5) /hpf Urine WBC 1 (0-5) /hpf Hyaline Casts 13 H (0-2) /lpf Urine Mucus Many H (None) /hpf Coronavirus (PCR) (Not Detectd) 02/17/21 Range/Units 10:34 WBC (3.8-10.6) k/uL RBC (4.30-5.90) m/uL Hgb (13.0-17.5) gm/dL Hct (39.0-53.0) % MCV (80.0-100.0) fL MCH (25.0-35.0) pg MCHC (31.0-37.0) g/dL RDW (11.5-15.5) % Plt Count (150-450) k/uL MPV Neutrophils % % Lymphocytes % % Monocytes % % Eosinophils % % Basophils % % Neutrophils # (1.3-7.7) k/uL Lymphocytes # (1.0-4.8) k/uL Monocytes # (0-1.0) k/uL Eosinophils # (0-0.7) k/uL Basophils # (0-0.2) k/uL Sodium (137-145) mmol/L Potassium (3.5-5.1) mmol/L Chloride (98-107) mmol/L Carbon Dioxide (22-30) mmol/L Anion Gap mmol/L BUN (9-20) mg/dL Creatinine (0.66-1.25) mg/dL Est GFR (CKD-EPI)AfAm (>60 ml/min/1.73 sqM) Est GFR (CKD-EPI)NonAf (>60 ml/min/1.73 sqM) Glucose (74-99) mg/dL Calcium (8.4-10.2) mg/dL Total Bilirubin (0.2-1.3) mg/dL AST (17-59) U/L ALT (4-49) U/L Alkaline Phosphatase (38-126) U/L Total Protein (6.3-8.2) g/dL Albumin (3.5-5.0) g/dL Urine Color Urine Appearance (Clear) Urine pH (5.0-8.0) Ur Specific [place] (1.001-1.035) Urine Protein (Negative) Urine Glucose (UA) (Negative) Urine Ketones (Negative) Urine Blood (Negative) Urine Nitrite (Negative) Urine Bilirubin (Negative) Urine Urobilinogen (<2.0) mg/dL Ur Leukocyte Esterase (Negative) Urine RBC (0-5) /hpf Urine WBC (0-5) /hpf Hyaline Casts (0-2) /lpf Urine Mucus (None) /hpf Coronavirus (PCR) Not Detected (Not Detectd) - EKG Data EKG Comments: Sinus tachycardia, right HO enlargement, left axis deviation, incomplete RBBB, left ventricular hypertrophy. This is similar to his previous on 11/02/2020. No signs of acute ST segment elevation. Ventricular rate 1:30, CO interval 132, QT 310. Disposition Clinical Impression: Pneumonia, Sepsis Disposition: Left Against Medical Advice Condition: Good Instructions (If sedation given, give patient instructions): Pneumonia (ED) Additional Instructions: Please return to the Emergency Department if symptoms worsen or any other co ncerns. Please continue on antibiotics as prescribed. May take Zofran every 8 hours for additional nausea. I strongly recommend following up with your primary care in the next few days. Prescriptions: Azithromycin [Zithromax] 500 mg PO DAILY 5 Days #5 tab Ondansetron Odt [Zofran Odt] 4 mg PO Q8HR PRN #10 tab PRN Reason: Nausea Is patient prescribed a controlled substance at d/c from ED?: No Referrals: Leta Smith MD [Primary Care Provider] - 1-2 days Time of Disposition: 13:14
--- NOTE | 2021-02-17 11:12 | XR ---
EXAMINATION TYPE: XR chest 1V portable DATE OF EXAM: 02/17/2021 COMPARISON: Chest x-ray 11/02/2020 HISTORY: Fever and cough TECHNIQUE: Single frontal view of the chest is obtained. FINDINGS: There is been interval development of abnormal increased density in the right upper lobe. There is apical bullous disease present. Air-fluid level seen on prior exam within the left midlung h as resolved. Small there may be some calcified pleural plaque present at this level. Blunting of the left costophrenic angle appears chronic. Cardiac mediastinal silhouette is stable. No evident pneumot horax. IMPRESSION: Correlate for pneumonia. Bullous emphysematous disease. Follow-up is recommended.
[2021-02-17 11:22] LABS: Basophils # (A) 0.1 k/uL (0-0.2); Basophils % (A) 0 %; Eosinophils # (A) 0.1 k/uL (0-0.7); Eosinophils % (A) 0 %; HCT 39.1 % (39.0-53.0); HGB 12.8 gm/dL (13.0-17.5); Lymphocytes # (A) 1.8 k/uL (1.0-4.8); Lymphocytes % (A) 6 %; MCH 25.9 pg (25.0-35.0); MCHC 32.7 g/dL (31.0-37.0); MCV 79.1 fL (80.0-100.0); Mean Platelet Volume 6.8; Monocytes # (A) 1.9 k/uL (0-1.0); Monocytes % (A) 7 %; Neutrophils # (A) 24.3 k/uL (1.3-7.7); Neutrophils % (A) 86 %; Platelet Count 438 k/uL (150-450); RBC 4.94 m/uL (4.30-5.90); RDW 15.1 % (11.5-15.5); WBC 28.5 k/uL (3.8-10.6)
[2021-02-17 11:37] LABS: Calcium 9.5 mg/dL (8.4-10.2); Total Bilirubin 0.8 mg/dL (0.2-1.3); Total Protein 7.4 g/dL (6.3-8.2)
[2021-02-17] MEDS ORDERED: cefTRIAXone IN SWFI 1,000 MG/10 ML SYRINGE IVP STA (11:46)
[2021-02-17] MEDS ORDERED: AZITHROMYCIN 500 MG TAB PO STA (11:47)
[2021-02-17 12:13] LABS: Appearance,Urine Cloudy (Clear); Bilirubin,Urine Negative (Negative); Blood,Urine Moderate (Negative); Color,Urine Yellow; Glucose,Urine (UA) Negative (Negative); Hyaline Casts,Urine 13 /lpf (0-2); Ketones,Urine Negative (Negative); Leukocyte Esterase,Urine Negative (Negative); Mucus,Urine Many /hpf; Nitrite,Urine Negative (Negative); PH, Urine 5.5 (5.0-8.0); Protein,Urine 2+ (Negative); RBC,Urine 2 /hpf (0-5); Specific Gravity,Urine 1.028 (1.001-1.035); Urobilinogen,Urine <2.0 mg/dL (<2.0); WBC,Urine 1 /hpf (0-5)
[2021-02-17 12:37] VITALS: BP 128/74; PULSE 124
== END 2021-02-17 13:30 | disposition left against medical advice (07) ==
LOC: EC 09:20
DX: A41.9 Sepsis, unspecified organism (principal); J18.9 Pneumonia, unspecified organism; F17.200 Nicotine dependence, unspecified, uncomplicated; F12.90 Cannabis use, unspecified, uncomplicated; Z20.822 Contact with and (suspected) exposure to COVID-19
CPT/HCPCS: 99284; 96374; 96375 ×2; 96361; 36415; 93005; 80053; 85025; 81001; 87635; 71045; J2405; J0696; J1885

== ENCOUNTER 2023-10-03 13:21 | Emergency (ER) | payer OTHER ==
[2023-10-03 13:42] VITALS: RESP 16; TEMP 97.8
--- NOTE | 2023-10-03 13:57 | ED ---
Nausea/Vomiting/Diarrhea HPI - General Chief complaint: Nausea/Vomiting/Diarrhea Stated complaint: Vomiting Time Seen by Provider: 10/03/23 13:56 Source: patient, RN notes reviewed Mode of arrival: ambulatory Limitations: no limitations - History of Present Illness Initial comments: This is a 58-year-old male who presents to the emergency department for nausea and vomiting. States that it started on 09/26 and has been fairly constant. Denies any abdominal pain, diarrhea, or constipation. Also denies any fevers or chills. He was around a friend's child who has been sick with similar symptoms. MD complaint: nausea, vomiting - Related Data Previous Rx's Medication Instructions Recorded Amoxic-Pot Clav 875-125Mg 1 tab PO Q12HR 10 Days #20 tab 04/22/21 [Augmentin 875-125] Ferrous Sulfate [Feosol] 325 mg PO DAILY 30 Days #30 tab 04/22/21 Ondansetron Odt [Zofran Odt] 4 mg PO Q8HR PRN #20 tab 10/03/23 Allergies Allergy/AdvReac Type Severity Reaction Status Date / Time No Known Allergies Allergy Verified 10/03/23 13:42 Review of Systems ROS Statement: Those systems with pertinent positive or pertinent negative responses have been documented in the HPI. ROS Other: All systems not noted in ROS Statement are negative. Past Medical History Past Medical History: No Reported History History of Any Multi-Drug Resistant Organisms: None Reported Date of last positivie culture/infection: 11/03/20 MDRO Source:: Sputum Past Surgical History: Tonsillectomy Past Anesthesia/Blood Transfusion Reactions: No Reported Reaction Past Psychological History: No Psychological Hx Reported Smoking Status: Current some day smoker Past Alcohol Use History: Occasional Past Drug Use History: Marijuana - Past Family History Mother Additional Family Medical History / Comment(s): none Father Additional Family Medical History / Comment(s): at 73 years due to complications from a goiter removal General Exam Limitations: no limitations General appearance: alert, in no apparent distress Head exam: Present: atraumatic, normocephalic, normal inspection Respiratory exam: Present: normal lung sounds bilaterally. Absent: respiratory distress, wheezes, rales, rhonchi, stridor Cardiovascular Exam: Present: regular rate, normal rhythm, normal heart sounds. Absent: systolic murmur, diastolic murmur, rubs, gallop, clicks GI/Abdominal exam: Present: soft, normal bowel sounds. Absent: distended, tenderness, guarding, rebound, rigid Neurological exam: Present: alert, oriented X3, CN II-XII intact Psychiatric exam: Present: normal affect, normal mood Skin exam: Present: warm, dry, intact, normal color. Absent: rash Course Vital Signs 10/03/23 10/03/23 10/03/23 13:39 16:58 18:13 Temperature 97.8 F Pulse Rate 120 H 100 78 Respiratory 16 16 16 Rate Blood Pressure 114/71 120/60 120/68 O2 Sat by Pulse 95 98 98 Oximetry Medical Decision Making - Medical Decision Making This is a 58 year old male who presents to the emergency department for nausea and vomiting. Was pt. sent in by a medical professional or institution? @ -No Did you speak to anyone other than the patient for history? @ -No Did you review nursing and triage notes? @ -Yes, and I agree, it is accurate with regards to the patient's symptoms. Were old charts reviewed? @ -No Differential Diagnosis? @ -Differential Nausea and Vomiting: Gastroenteritis, cholecystitis, appendicitis, pancreatitis, migraine, benign positional vertigo, food borne illness, pyelonephritis, irritable bowel syndrome, influenza, Covid, GERD, incarcerated hernia, intestinal obstruction, this is not meant to be an all-inclusive list. EKG interpreted by me (3pts min.)? @ -Not obtained X-rays interpreted by me (1pt min.)? @ -Not obtained CT interpreted by me (1pt min.)? @ -Not obtained U/S interpreted by me (1pt. min.)? @ -Not obtained What testing was considered but not performed? (CT, X-rays, U/S, labs)? Why? @ -None What meds were considered but not given? Why? @ -None Did you discuss the management of the patient with other professionals? @ -No Did you reconcile home meds? @ -No Was smoking cessation discussed for >3mins.? @ -No Was critical care preformed (if so, how long)? @ -No Were there social determinants of health that impacted care today? How? (Homelessness, low income, unemployed, alcoholism, drug addiction, transportation, low edu. Level, literacy, decrease access to med. care, usp, rehab)? @ -No Was there de-escalation of care discussed even if they declined? (Discuss DNR or withdrawal of care, Hospice)? @ -No What co-morbidities impacted this encounter? (DM, HTN, Smoking, COPD, CAD, Cancer, CVA, Hep., AIDS, mental health diagnosis, sleep apnea, morbid obesity)? @ -None Was patient admitted / discharged? @ -Discharged. Lab work demonstrates mild leukocytosis and was otherwise unremarkable. Urinalysis negative for signs of infection. Patient was not exhibiting any abdominal pain or changes in bowel habits to necessitate imaging. Patient given IV fluids and Zofran. He was tolerating oral intake and felt substantially improved. Prescription for Zofran provided. He is advised to slowly advance his diet as tolerated and remain well-hydrated. Also advised c lose follow-up with his PCP. Undiagnosed new problem with uncertain prognosis? @ -None Drug Therapy requiring intensive monitoring for toxicity (Heparin, Nitro, Insulin, Cardizem)? @ -None Were any procedures done? @ -None Diagnosis/symptom? @ -Nausea and vomiting Acute, or Chronic, or Acute on Chronic? @ -Acute Uncomplicated (without systemic symptoms) or Complicated (systemic symptoms)? @ -Uncomplicated Side effects of treatment? @ -None Exacerbation, Progression, or Severe Exacerbation] @ -Not applicable Poses a threat to life or bodily function? @ -No Return precautions reviewed in depth, the patient is instructed to return to the emergency department with any new, worsening, or concerning symptoms. Patient verbalized understanding. This case was discussed in detail with the attending ED physician, Dr. [place]. Presentation, findings, and treatment plan discussed in detail as well. - Lab Data Result diagrams: 10/03/23 14:02 10/03/23 14:02 Lab Results 10/03/23 10/03/23 10/03/23 Range/Units 14:02 14:02 14:02 WBC 13.0 H (3.8-10.6) k/uL RBC 5.61 (4.30-5.90) m/uL Hgb 16.0 (13.0-17.5) gm/dL Hct 51.7 (39.0-53.0) % MCV 92.2 (80.0-100.0) fL MCH 28.5 (25.0-35.0) pg MCHC 30.9 L (31.0-37.0) g/dL RDW 14.1 (11.5-15.5) % Plt Count 580 H (150-450) k/uL MPV 7.3 Neutrophils % 75 % Lymphocytes % 14 % Monocytes % 7 % Eosinophils % 1 % Basophils % 1 % Neutrophils # 9.8 H (1.3-7.7) k/uL Lymphocytes # 1.8 (1.0-4.8) k/uL Monocytes # 0.9 (0-1.0) k/uL Eosinophils # 0.2 (0-0.7) k/uL Basophils # 0.1 (0-0.2) k/uL Sodium 144 (137-145) mmol/L Potassium 4.1 (3.5-5.1) mmol/L Chloride 104 (98-107) mmol/L Carbon Dioxide 30 (22-30) mmol/L Anion Gap 10 mmol/L BUN 46 H (9-20) mg/dL Creatinine 0.81 (0.66-1.25) mg/dL Est GFR (CKD-EPI)AfAm >90 (>60 ml/min/1.73 sqM) Est GFR (CKD-EPI)NonAf >90 (>60 ml/min/1.73 sqM) Glucose 134 H (74-99) mg/dL Plasma Lactic Acid Sam 1.0 (0.7-2.0) mmol/L Calcium 9.6 (8.4-10.2) mg/dL Total Bilirubin 0.6 (0.2-1.3) mg/dL AST 18 (17-59) U/L ALT 27 (4-49) U/L Alkaline Phosphatase 110 (38-126) U/L Total Protein 7.9 (6.3-8.2) g/dL Albumin 4.3 (3.5-5.0) g/dL Amylase 43 (30-110) U/L Lipase 47 (23-300) U/L Urine Color Urine Appearance (Clear) Urine pH (5.0-8.0) Ur Specific [place] (1.001-1.035) Urine Protein (Negative) Urine Glucose (UA) (Negative) Urine Ketones (Negative) Urine Blood (Negative) Urine Nitrite (Negative) Urine Bilirubin (Negative) Urine Urobilinogen (<2.0) mg/dL Ur Leukocyte Esterase (Negative) Urine RBC (0-5) /hpf Urine WBC (0-5) /hpf Hyaline Casts (0-2) /lpf Urine Mucus (None) /hpf 10/03/23 Range/Units 14:53 WBC (3.8-10.6) k/uL RBC (4.30-5.90) m/uL Hgb (13.0-17.5) gm/dL Hct (39.0-53.0) % MCV (80.0-100.0) fL MCH (25.0-35.0) pg MCHC (31.0-37.0) g/dL RDW (11.5-15.5) % Plt Count (150-450) k/uL MPV Neutrophils % % Lymphocytes % % Monocytes % % Eosinophils % % Basophils % % Neutrophils # (1.3-7.7) k/uL Lymphocytes # (1.0-4.8) k/uL Monocytes # (0-1.0) k/uL Eosinophils # (0-0.7) k/uL Basophils # (0-0.2) k/uL Sodium (137-145) mmol/L Potassium (3.5-5.1) mmol/L Chloride (98-107) mmol/L Carbon Dioxide (22-30) mmol/L Anion Gap mmol/L BUN (9-20) mg/dL Creatinine (0.66-1.25) mg/dL Est GFR (CKD-EPI)AfAm (>60 ml/min/1.73 sqM) Est GFR (CKD-EPI)NonAf (>60 ml/min/1.73 sqM) Glucose (74-99) mg/dL Plasma Lactic Acid Sam (0.7-2.0) mmol/L Calcium (8.4-10.2) mg/dL Total Bilirubin (0.2-1.3) mg/dL AST (17-59) U/L ALT (4-49) U/L Alkaline Phosphatase (38-126) U/L Total Protein (6.3-8.2) g/dL Albumin (3.5-5.0) g/dL Amylase (30-110) U/L Lipase (23-300) U/L Urine Color Yellow Urine Appearance Clear (Clear) Urine pH 6.0 (5.0-8.0) Ur Specific [place] 1.030 (1.001-1.035) Urine Protein 1+ H (Negative) Urine Glucose (UA) Negative (Negative) Urine Ketones Trace H (Negative) Urine Blood Negative (Negative) Urine Nitrite Negative (Negative) Urine Bilirubin 1+ H (Negative) Urine Urobilinogen 2.0 (<2.0) mg/dL Ur Leukocyte Esterase Trace H (Negative) Urine RBC 2 (0-5) /hpf Urine WBC 3 (0-5) /hpf Hyaline Casts 2 (0-2) /lpf Urine Mucus Many H (None) /hpf Disposition Clinical Impression: Nausea and vomiting, Nicotine dependence Disposition: HOME SELF-CARE Instructions (If sedation given, give patient instructions): Acute Nausea and Vomiting (ED) Additional Instructions: Return to the emergency department with any new, worsening, or concerning symptoms. Take the Zofran up to every 8 hours as needed for nausea and vomiting. Slowly advance your diet as tolerated and remain well-hydrated. Follow up with your primary care provider in 1-2 days. Prescriptions: Ondansetron Odt [Zofran Odt] 4 mg PO Q8HR PRN #20 tab PRN Reason: Nausea And Vomiting Is patient prescribed a controlled substance at d/c from ED?: No Referrals: None,Stated [Primary Care Provider] - 1-2 days
[2023-10-03 14:24] LABS: Basophils # (A) 0.1 k/uL (0-0.2); Basophils % (A) 1 %; Eosinophils # (A) 0.2 k/uL (0-0.7); Eosinophils % (A) 1 %; HCT 51.7 % (39.0-53.0); Lymphocytes # (A) 1.8 k/uL (1.0-4.8); Lymphocytes % (A) 14 %; MCH 28.5 pg (25.0-35.0); MCHC 30.9 g/dL (31.0-37.0); MCV 92.2 fL (80.0-100.0); Mean Platelet Volume 7.3; Monocytes # (A) 0.9 k/uL (0-1.0); Monocytes % (A) 7 %; Neutrophils # (A) 9.8 k/uL (1.3-7.7); Neutrophils % (A) 75 %; Platelet Count 580 k/uL (150-450); RBC 5.61 m/uL (4.30-5.90); RDW 14.1 % (11.5-15.5)
[2023-10-03 14:41] LABS: ALT 27 U/L (4-49); AST 18 U/L (17-59); African American GFR (CKD) >90 (>60 ml/min/1.73 sqM); Albumin 4.3 g/dL (3.5-5.0); Alkaline Phosphatase 110 U/L (38-126); Amylase 43 U/L (30-110); Anion Gap 10 mmol/L; Blood Urea Nitrogen 46 mg/dL (9-20); Calcium 9.6 mg/dL (8.4-10.2); Carbon Dioxide 30 mmol/L (22-30); Chloride 104 mmol/L (98-107); Glucose 134 mg/dL (74-99); Lipase 47 U/L (23-300); Non-African American GFR(CKD) >90 (>60 ml/min/1.73 sqM); Potassium 4.1 mmol/L (3.5-5.1); Sodium 144 mmol/L (137-145); Total Bilirubin 0.6 mg/dL (0.2-1.3); Total Protein 7.9 g/dL (6.3-8.2)
[2023-10-03 16:45] LABS: Appearance,Urine Clear (Clear); Bilirubin,Urine 1+ (Negative); Blood,Urine Negative (Negative); Color,Urine Yellow; Glucose,Urine (UA) Negative (Negative); Hyaline Casts,Urine 2 /lpf (0-2); Ketones,Urine Trace (Negative); Leukocyte Esterase,Urine Trace (Negative); Mucus,Urine Many /hpf; Nitrite,Urine Negative (Negative); Protein,Urine 1+ (Negative); RBC,Urine 2 /hpf (0-5); WBC,Urine 3 /hpf (0-5)
[2023-10-03] MEDS: SODIUM CHLORIDE 0.9% 1,000 ML IV STA (16:52)
[2023-10-03] MEDS: ONDANSETRON 4 MG/2 ML VIAL IVP STA (16:52)
[2023-10-03 18:14] VITALS: BP 120/68; PULSE 78
== END 2023-10-03 18:14 | disposition home or self-care (01) ==
LOC: EC 13:21
DX: R11.2 Nausea with vomiting, unspecified (principal); F17.200 Nicotine dependence, unspecified, uncomplicated; F12.90 Cannabis use, unspecified, uncomplicated
CPT/HCPCS: 36415; 80053; 82150; 83605; 83690; 85025; 81001; 99284; 96374; 96361; J2405

== ENCOUNTER 2024-07-01 12:02 | Emergency (ER) | payer OTHER ==
[2024-07-01 12:14] VITALS: TEMP 97.4
--- NOTE | 2024-07-01 12:41 | ED ---
General Adult HPI - General Chief complaint: Nausea/Vomiting/Diarrhea Stated complaint: Vomiting Time Seen by Provider: 07/01/24 12:15 Source: patient, RN notes reviewed, old records reviewed Mode of arrival: ambulatory Limitations: no limitations - History of Present Illness Initial comments: This is a 59-year-old male who presents to the emergency department complaining of 3-day history of vomiting. Patient states he cannot keep anything down he is very dehydrated. Patient states he also had a slight cough. Patient denies any chest pain or palpitation. Patient denies any fever but had some chills. Patient denies abdominal pain. Patient states he had 1 episode diarrhea few days ago but none now. Patient denies any injury or trauma - Related Data Home Medications Medication Instructions Recorded Confirmed methylPREDNISolone Dose Pack See Taper PO DIRECTED 07/01/24 07/01/24 [Medrol Dose Pack] Previous Rx's Medication Instructions Recorded Amoxic-Pot Clav 875-125Mg 1 tab PO Q12HR 10 Days #20 tab 04/22/21 [Augmentin 875-125] Allergies Allergy/AdvReac Type Severity Reaction Status Date / Time No Known Allergies Allergy Verified 07/01/24 12:46 Review of Systems ROS Statement: Those systems with pertinent positive or pertinent negative responses have been documented in the HPI. ROS Other: All systems not noted in ROS Statement are negative. Past Medical History Past Medical History: No Reported History History of Any Multi-Drug Resistant Organisms: None Reported Date of last positivie culture/infection: 11/03/20 MDRO Source:: Sputum Past Surgical History: Tonsillectomy Past Anesthesia/Blood Transfusion Reactions: No Reported Reaction Past Psychological History: No Psychological Hx Reported Smoking Status: Current every day smoker Past Alcohol Use History: Occasional Past Drug Use History: Marijuana - Past Family History Mother Additional Family Medical History / Comment(s): none Father Additional Family Medical History / Comment(s): at 73 years due to complications from a goiter removal General Exam - General Exam Comments Initial Comments: GENERAL: Patient is well-developed and well-nourished. Patient is nontoxic and well- hydrated and is in no acute distress. ENT: Neck is soft and supple. No significant lymphadenopathy is noted. Oropharynx is clear. Dry mucous membranes. Neck has full range of motion without eliciting any pain. EYES: The sclera were anicteric and conjunctiva were pink and moist. Extraocular movements were intact and pupils were equal round and reactive to light. Eyelids were unremarkable. PULMONARY: Unlabored respirations. Good breath sounds bilaterally. No audible rales rhonchi or wheezing was noted. CARDIOVASCULAR: There is a regular rate and rhythm without any murmurs gallops or rubs. ABDOMEN: Soft and nontender with normal bowel sounds. SKIN: Skin is clear with no lesions or rashes and otherwise unremarkable. NEUROLOGIC: Patient is alert and oriented x3. Cranial nerves II through XII are grossly intact. Motor and sensory are also intact. Normal speech, volume and content. Symmetrical smile. MUSCULOSKELETAL: Normal extremities with adequate strength and full range of motion. LYMPHATICS: No significant lymphadenopathy is noted PSYCHIATRIC: Normal psychiatric evaluation. Limitations: no limitations Course Vital Signs 07/01/24 07/01/24 07/01/24 12:10 12:13 13:10 Temperature 97.4 F L Pulse Rate 46 L 85 90 Respiratory 18 20 20 Rate Blood Pressure 111/83 132/91 131/88 O2 Sat by Pulse 97 98 98 Oximetry 07/01/24 14:36 Temperature Pulse Rate 85 Respiratory 16 Rate Blood Pressure 142/83 O2 Sat by Pulse 100 Oximetry Medical Decision Making - Medical Decision Making Was pt. sent in by a medical professional or institution (, PA, ACID CONCENTRATOR, urgent care, hospital, or half-way...) When possible be specific @ -No Did you speak to anyone other than the patient for history (EMS, parent, family, police, friend...)? What history was obtained from this source @ -No Did you review nursing and triage notes (agree or disagree)? Why? @ -I reviewed and agree with nursing and triage notes Were old charts reviewed (outside hosp., previous admission, EMS record, old EKG, old radiological studies, urgent care reports/EKG's, half-way records)? Report findings @ -No old charts were reviewed Differential Diagnosis? @ -Gastroenteritis, viral syndrome, cyclic vomiting syndrome, dehydration, this is not an all-inclusive list EKG interpreted by me (3pts min.). @ -As above X-rays interpreted by me (1pt min.). @ -None done CT interpreted by me (1pt min.). @ -None done U/S interpreted by me (1pt. min.). @ -None done What testing was considered but not performed or refused? (CT, X-rays, U/S, labs)? Why? @ -None What meds were considered but not given or refused? Why? @ -None Did you discuss the management of the patient with other professionals (pr ofessionals i.e. , PA, ACID CONCENTRATOR, lab, RT, psych nurse, drug abuse social worker, wrapper stripper, teacher, fire management officer, egg caser)? Give summary @ -No Was smoking cessation discussed for >3mins.? @ -No Was critical care preformed (if so, how long)? @ -No Were there social determinants of health that impacted care today? How? (Homelessness, low income, unemployed, alcoholism, drug addiction, transportation, low edu. Level, literacy, decrease access to med. care, group home, rehab)? @ -No Was there de-escalation of care discussed even if they declined (Discuss DNR or withdrawal of care, Hospice)? DNR status @ -No What co-morbidities impacted this encounter? (DM, HTN, Smoking, COPD, CAD, Cancer, CVA, ARF, Chemo, Hep., AIDS, mental health diagnosis, sleep apnea, morbid obesity)? @ -None Was patient admitted / discharged? Hospital course, mention meds given and route, prescriptions, significant lab abnormalities, going to OR and other pertinent info. @ -Patient initially looked very dehydrated based on the lab work patient was given 2 L normal saline I repeated lab work most of his labs came back within normal range and he felt much better he was no vomiting and he was able to eat ice chips and drink a little water. Patient will be discharged home with Zofran patient was given 2 doses Zofran in the emergency department Undiagnosed new problem with uncertain prognosis? @ -No Drug Therapy requiring intensive monitoring for toxicity (Heparin, Nitro, Insulin, Cardizem)? @ -No Were any procedures done? @ -No Diagnosis/symptom? @ -Acute vomiting Acute, or Chronic, or Acute on Chronic? @ -Acute Uncomplicated (without systemic symptoms) or Complicated (systemic symptoms)? @ -Complicated Side effects of treatment? @ -No Exacerbation, Progression, or Severe Exacerbation? @ -No Poses a threat to life or bodily function? How? (Chest pain, [place], NC, pneumonia, PE, COPD, DKA, ARF, appy, cholecystitis, CVA, Diverticulitis, Homicidal, Suicidal, threat to staff... and all critical care pts) @ -No Diagnosis/symptom? @ -Dehydration Acute, or Chronic, or Acute on Chronic? @ -Acute Uncomplicated (without systemic symptoms) or Complicated (systemic symptoms)? @ -Complicated Side effects of treatment? @ -None Exacerbation, Progression, or Severe Exacerbation] @ -No Poses a threat to life or bodily function? @ -No - Lab Data Result diagrams: 07/01/24 14:13 07/01/24 14:13 Lab Results 07/01/24 07/01/24 07/01/24 Range/Units 12:36 12:36 14:13 WBC 5.7 5.16 (3.8-10.6) k/uL RBC 6.63 H 5.49 (4.30-5.90) m/uL Hgb 18.6 H 16.0 (13.0-17.5) gm/dL Hct 57.4 H* 47.5 (39.0-53.0) % MCV 86.5 86.5 (80.0-100.0) fL MCH 28.1 29.1 (25.0-35.0) pg MCHC 32.5 33.7 (31.0-37.0) g/dL RDW 15.9 H 15.7 H (11.5-15.5) % Plt Count 156 135 L (150-450) k/uL MPV 7.8 10.0 Neutrophils % 53 50.2 % Lymphocytes % 24 24.8 % Monocytes % 18 24.0 % Eosinophils % 0 0.2 % Basophils % 1 0.2 % Neutrophils # 3.0 2.59 (1.3-7.7) k/uL Lymphocytes # 1.4 1.28 (1.0-4.8) k/uL Monocytes # 1.0 1.24 H (0-1.0) k/uL Eosinophils # 0.0 0.01 L (0-0.7) k/uL Basophils # 0.1 0.01 (0-0.2) k/uL Sodium 146 H (137-145) mmol/L Potassium 5.9 H (3.5-5.1) mmol/L Chloride 105 (98-107) mmol/L Carbon Dioxide 31 H (22-30) mmol/L Anion Gap 10 mmol/L BUN 76 H (9-20) mg/dL Creatinine 1.51 H (0.66-1.25) mg/dL Est GFR (CKD-EPI)AfAm 58 (>60 ml/min/1.73 sqM) Est GFR (CKD-EPI)NonAf 50 (>60 ml/min/1.73 sqM) Glucose 159 H (74-99) mg/dL Calcium 9.8 (8.4-10.2) mg/dL Total Bilirubin 0.9 (0.2-1.3) mg/dL AST 115 H (17-59) U/L ALT 203 H (4-49) U/L Alkaline Phosphatase 132 H (38-126) U/L Total Protein 8.2 (6.3-8.2) g/dL Albumin 4.7 (3.5-5.0) g/dL Amylase 54 (30-110) U/L Lipase 99 (23-300) U/L 07/01/24 Range/Units 14:13 WBC (3.8-10.6) k/uL RBC (4.30-5.90) m/uL Hgb (13.0-17.5) gm/dL Hct (39.0-53.0) % MCV (80.0-100.0) fL MCH (25.0-35.0) pg MCHC (31.0-37.0) g/dL RDW (11.5-15.5) % Plt Count (150-450) k/uL MPV Neutrophils % % Lymphocytes % % Monocytes % % Eosinophils % % Basophils % % Neutrophils # (1.3-7.7) k/uL Lymphocytes # (1.0-4.8) k/uL Monocytes # (0-1.0) k/uL Eosinophils # (0-0.7) k/uL Basophils # (0-0.2) k/uL Sodium 146 H (137-145) mmol/L Potassium 4.9 (3.5-5.1) mmol/L Chloride 107 (98-107) mmol/L Carbon Dioxide 33 H (22-30) mmol/L Anion Gap 6 mmol/L BUN 69 H (9-20) mg/dL Creatinine 1.19 (0.66-1.25) mg/dL Est GFR (CKD-EPI)AfAm 78 (>60 ml/min/1.73 sqM) Est GFR (CKD-EPI)NonAf 67 (>60 ml/min/1.73 sqM) Glucose 103 H (74-99) mg/dL Calcium 9.1 (8.4-10.2) mg/dL Total Bilirubin 0.6 (0.2-1.3) mg/dL AST 87 H (17-59) U/L ALT 161 H (4-49) U/L Alkaline Phosphatase 113 (38-126) U/L Total Protein 6.5 (6.3-8.2) g/dL Albumin 3.7 (3.5-5.0) g/dL Amylase (30-110) U/L Lipase (23-300) U/L Disposition Clinical Impression: Dehydration, Acute vomiting Disposition: HOME SELF-CARE Condition: Good Instructions (If sedation given, give patient instructions): Acute Nausea and Vomiting (ED) Additional Instructions: Patient should stop taking all marijuana products. Patient should increase his diet from a clear liquid diet to solid foods slowly. Patient is to take Zofran as prescribed. Is patient prescribed a controlled substance at d/c from ED?: No Referrals: None,Stated [Primary Care Provider] - 1-2 days Time of Disposition: 15:26
[2024-07-01] MEDS: LACTATED RINGERS 1,000 ML IV SCH (12:44)
[2024-07-01] MEDS: ONDANSETRON 4 MG/2 ML VIAL IVP STA ×2 (12:45→15:11)
[2024-07-01 13:05] LABS: ALT 203 U/L (4-49); AST 115 U/L (17-59); African American GFR (CKD) 58 (>60 ml/min/1.73 sqM); Albumin 4.7 g/dL (3.5-5.0); Alkaline Phosphatase 132 U/L (38-126); Amylase 54 U/L (30-110); Anion Gap 10 mmol/L; Blood Urea Nitrogen 76 mg/dL (9-20); Calcium 9.8 mg/dL (8.4-10.2); Carbon Dioxide 31 mmol/L (22-30); Chloride 105 mmol/L (98-107); Glucose 159 mg/dL (74-99); Lipase 99 U/L (23-300); Non-African American GFR(CKD) 50 (>60 ml/min/1.73 sqM); Potassium 5.9 mmol/L (3.5-5.1); Sodium 146 mmol/L (137-145); Total Bilirubin 0.9 mg/dL (0.2-1.3); Total Protein 8.2 g/dL (6.3-8.2)
[2024-07-01 13:29] LABS: Basophils # (A) 0.1 k/uL (0-0.2); Basophils % (A) 1 %; Eosinophils % (A) 0 %; HGB 18.6 gm/dL (13.0-17.5); Lymphocytes # (A) 1.4 k/uL (1.0-4.8); Lymphocytes % (A) 24 %; MCH 28.1 pg (25.0-35.0); MCHC 32.5 g/dL (31.0-37.0); MCV 86.5 fL (80.0-100.0); Mean Platelet Volume 7.8; Monocytes % (A) 18 %; Neutrophils % (A) 53 %; Platelet Count 156 k/uL (150-450); RBC 6.63 m/uL (4.30-5.90); RDW 15.9 % (11.5-15.5); WBC 5.7 k/uL (3.8-10.6)
[2024-07-01 13:41] LABS: HCT 57.4 % (39.0-53.0)
[2024-07-01 14:44] LABS: Basophils # (A) 0.01 10*3/uL (0.00-0.10); Basophils % (A) 0.2 %; Eosinophils # (A) 0.01 10*3/uL (0.04-0.35); Eosinophils % (A) 0.2 %; HCT 47.5 % (39.6-50.0); Lymphocytes # (A) 1.28 10*3/uL (0.90-5.00); Lymphocytes % (A) 24.8 %; MCH 29.1 pg (27.0-32.0); MCHC 33.7 g/dL (32.0-37.0); MCV 86.5 fL (80.0-97.0); Monocytes # (A) 1.24 10*3/uL (0.20-1.00); Neutrophils # (A) 2.59 10*3/uL (1.80-7.70); Neutrophils % (A) 50.2 %; Platelet Count 135 10*3/uL (140-440); RBC 5.49 10*6/uL (4.40-5.60); RDW 15.7 % (11.5-14.5); WBC 5.16 10*3/uL (4.50-10.00)
[2024-07-01 14:51] LABS: ALT 161 U/L (4-49); AST 87 U/L (17-59); African American GFR (CKD) 78 (>60 ml/min/1.73 sqM); Albumin 3.7 g/dL (3.5-5.0); Alkaline Phosphatase 113 U/L (38-126); Anion Gap 6 mmol/L; Blood Urea Nitrogen 69 mg/dL (9-20); Calcium 9.1 mg/dL (8.4-10.2); Carbon Dioxide 33 mmol/L (22-30); Chloride 107 mmol/L (98-107); Glucose 103 mg/dL (74-99); Non-African American GFR(CKD) 67 (>60 ml/min/1.73 sqM); Potassium 4.9 mmol/L (3.5-5.1); Sodium 146 mmol/L (137-145); Total Bilirubin 0.6 mg/dL (0.2-1.3); Total Protein 6.5 g/dL (6.3-8.2)
[2024-07-01 16:16] VITALS: BP 141/80; PULSE 86; RESP 18
[2024-07-01] MEDS: ONDANSETRON 4 MG ODT STARTER PACK 2 TAB BTL PO STA (16:24)
== END 2024-07-01 16:24 | disposition home or self-care (01) ==
LOC: EC 12:02
DX: E86.0 Dehydration (principal); R11.2 Nausea with vomiting, unspecified; F17.200 Nicotine dependence, unspecified, uncomplicated
CPT/HCPCS: 36415; 80053; 82150; 83690; 85025; 99283; 96374; 96376; 96361; J2405; S0119